=== PATIENT | female | born 1960 | race Caucasian/White ===

== ENCOUNTER 2016-08-23 00:15 | Observation (INO) | payer OTHER ==
--- NOTE | 2016-08-23 01:19 | ED ---
General Adult HPI - General Chief complaint: Abdominal Pain Stated complaint: high BP Time Seen by Provider: 08/23/16 00:42 Source: patient, RN notes reviewed Mode of arrival: ambulatory Limitations: no limitations - History of Present Illness Initial comments: Patient is a 56-year-old female presents to the emergency room for evaluation of high blood pressure. Patient states that she randomly checked her blood pressure on Wednesday noticed that was it was high. Patient denies any history of high blood pressure. Patient denies being on any blood pressure medications. Patient states today she began feeling "not herself". Patient states she is having chest discomfort. Patient states she feels like there is pressure over her chest. Patient denies shortness of breath. Patient states she smokes about 6 cigarettes per day. Patient also states that she is having a cough. Patient also states she does have a slight headache with ringing in her ears. Patient denies paresthesia. Patient denies changes in vision. Patient also states she has a history of diabetes which she takes metformin for. Patient denies any other significant past medical history. - Related Data Home Medications Medication Instructions Recorded Confirmed Belladonna Eye Drops 1 - 2 drops BOTH EYES DAILY 12/12/14 01/25/16 Propylene Glycol/Peg 400/Pf 1 - 2 drops BOTH EYES BID PRN 12/12/14 01/25/16 [Systane 0.3-0.4% Eye Drops] Ranitidine HCl [Zantac] 150 mg PO DAILY 01/16/16 01/25/16 Lidocaine 5% Patch [Lidoderm 5% 1 patch TOPICAL DAILY PRN 01/25/16 01/25/16 Patch] Allergies Allergy/AdvReac Type Severity Reaction Status Date / Time Penicillins AdvReac Nausea & Verified 08/23/16 00:28 Vomiting & Diarrhea Review of Systems ROS Statement: Those systems with pertinent positive or pertinent negative responses have been documented in the HPI. ROS Other: All systems not noted in ROS Statement are negative. Past Medical History Past Medical History: Asthma, Diabetes Mellitus, Fibromyalgia, GERD/Reflux, Osteoarthritis (OA), Pneumonia Additional Past Medical History / Comment(s): degenerative disk problems, numbness rt/lft hand 3rd through 5th digits, 2009 renal failure-resolved, hx migraines History of Any Multi-Drug Resistant Organisms: None Reported Past Surgical History: Appendectomy, Section, Hysterectomy, Orthopedic Surgery Additional Past Surgical History / Comment(s): disc surgery-plate and screws in neck, x2 (appentdectomy happened during one of the ), ORIF rt ankle,lt eye repaired and placed back into socket, lipoma removed lt thigh Past Anesthesia/Blood Transfusion Reactions: No Reported Reaction Additional Past Anesthesia/Blood Transfusion Reaction / Comment(s): no complications with prior blood transfusion Past Psychological History: Anxiety Smoking Status: Current every day smoker Past Alcohol Use History: Occasional Past Drug Use History: Marijuana - Past Family History Father Family Medical History: Cancer Additional Family Medical History / Comment(s): . Mother Family Medical History: Hypertension, Osteoarthritis (OA) Additional Family Medical History / Comment(s): MS General Exam - General Exam Comments Initial Comments: Sitting in exam room, no acute distress. Limitations: no limitations General appearance: alert, in no apparent distress Head exam: Present: atraumatic, normocephalic, normal inspection Eye exam: Present: normal appearance ENT exam: Present: normal exam Neck exam: Present: normal inspection Respiratory exam: Present: normal lung sounds bilaterally. Absent: respiratory distress Cardiovascular Exam: Present: regular rate, normal rhythm, normal heart sounds GI/Abdominal exam: Present: soft, normal bowel sounds. Absent: distended, tenderness, guarding, rebound, rigid Extremities exam: Present: normal inspection Back exam: Present: normal inspection Neurological exam: Present: alert, oriented X3, CN II-XII intact, normal gait Psychiatric exam: Present: normal affect, normal mood Skin exam: Present: warm, dry, intact, normal color. Absent: rash Course Vital Signs 08/23/16 08/23/16 08/23/16 00:20 01:30 02:19 Temperature 97.9 F Pulse Rate 98 80 84 Respiratory 20 18 18 Rate Blood Pressure 186/97 164/87 140/88 O2 Sat by Pulse 99 96 97 Oximetry EKG Findings - EKG Comments: EKG Findings:: Normal sinus rhythm, ventricular rate 84 bpm, MO interval 150 ms , QRS duration 86 ms, QT/QTC 364/430 ms Medical Decision Making - Medical Decision Making Patient is a 56-year-old female presents to the emergency room for evaluation of high blood pressure and chest discomfort. Patient's blood pressure went down to 140/88 with no medications given. Patient states her headache has improved but she is still feeling a pressure-like sensation in her chest. Cardiac enzymes within normal limits. Due to patient comorbidities and her symptoms, will keep patient under observation for repeat cardiac enzymes. - Lab Data Result diagrams: 08/23/16 01:20 08/23/16 01:20 Lab Results 08/23/16 08/23/16 08/23/16 Range/Units 01:20 01:20 01:20 WBC 8.3 (3.8-10.6) k/uL RBC 4.07 (3.80-5.40) m/uL Hgb 13.4 (11.4-16.0) gm/dL Hct 38.9 (34.0-46.0) % MCV 95.8 (80.0-100.0) fL MCH 32.8 (25.0-35.0) pg MCHC 34.3 (31.0-37.0) g/dL RDW 13.0 (11.5-15.5) % Plt Count 216 (150-450) k/uL Neutrophils % 73 % Lymphocytes % 18 % Monocytes % 5 % Eosinophils % 2 % Basophils % 1 % Neutrophils # 6.1 (1.3-7.7) k/uL Lymphocytes # 1.5 (1.0-4.8) k/uL Monocytes # 0.4 (0-1.0) k/uL Eosinophils # 0.2 (0-0.7) k/uL Basophils # 0.0 (0-0.2) k/uL PT (9.0-12.0) sec INR (<1.1) APTT (22.0-30.0) sec Sodium 138 (137-145) mmol/L Potassium 4.5 (3.5-5.1) mmol/L Chloride 104 (98-107) mmol/L Carbon Dioxide 23 (22-30) mmol/L Anion Gap 11 mmol/L BUN 7 (7-17) mg/dL Creatinine 0.40 L (0.52-1.04) mg/dL Est GFR (MDRD) Af Amer >60 (>60 ml/min/1.73 sqM) Est GFR (MDRD) Non-Af >60 (>60 ml/min/1.73 sqM) Glucose 110 H (74-99) mg/dL Calcium 10.2 (8.4-10.2) mg/dL Magnesium 1.8 (1.6-2.3) mg/dL Total Bilirubin 0.6 (0.2-1.3) mg/dL AST 40 H (14-36) U/L ALT 39 (9-52) U/L Alkaline Phosphatase 112 (38-126) U/L Total Creatine Kinase 97 (30-135) U/L CK-MB (CK-2) 1.4 (0.0-2.4) ng/mL CK-MB (CK-2) Rel Index 1.4 Troponin I <0.012 (0.000-0.034) ng/mL Total Protein 7.5 (6.3-8.2) g/dL Albumin 4.6 (3.5-5.0) g/dL 08/23/16 Range/Units 01:20 WBC (3.8-10.6) k/uL RBC (3.80-5.40) m/uL Hgb (11.4-16.0) gm/dL Hct (34.0-46.0) % MCV (80.0-100.0) fL MCH (25.0-35.0) pg MCHC (31.0-37.0) g/dL RDW (11.5-15.5) % Plt Count (150-450) k/uL Neutrophils % % Lymphocytes % % Monocytes % % Eosinophils % % Basophils % % Neutrophils # (1.3-7.7) k/uL Lymphocytes # (1.0-4.8) k/uL Monocytes # (0-1.0) k/uL Eosinophils # (0-0.7) k/uL Basophils # (0-0.2) k/uL PT 9.9 (9.0-12.0) sec INR 1.0 (<1.1) APTT 24.6 (22.0-30.0) sec Sodium (137-145) mmol/L Potassium (3.5-5.1) mmol/L Chloride (98-107) mmol/L Carbon Dioxide (22-30) mmol/L Anion Gap mmol/L BUN (7-17) mg/dL Creatinine (0.52-1.04) mg/dL Est GFR (MDRD) Af Amer (>60 ml/min/1.73 sqM) Est GFR (MDRD) Non-Af (>60 ml/min/1.73 sqM) Glucose (74-99) mg/dL Calcium (8.4-10.2) mg/dL Magnesium (1.6-2.3) mg/dL Total Bilirubin (0.2-1.3) mg/dL AST (14-36) U/L ALT (9-52) U/L Alkaline Phosphatase (38-126) U/L Total Creatine Kinase (30-135) U/L CK-MB (CK-2) (0.0-2.4) ng/mL CK-MB (CK-2) Rel Index Troponin I (0.000-0.034) ng/mL Total Protein (6.3-8.2) g/dL Albumin (3.5-5.0) g/dL - Radiology Data Radiology results: report reviewed, image reviewed Disposition Clinical Impression: Atypical chest pain Disposition: ADMITTED IP TO THIS [facility] Condition: Stable Decision Date: 08/23/16
[2016-08-23 01:38] LABS: Basophils % (A) 1 %; CH 32.9; CHCM 34.5; Eosinophils # (A) 0.2 k/uL (0-0.7); Eosinophils % (A) 2 %; HCT 38.9 % (34.0-46.0); HDW 2.25; HGB 13.4 gm/dL (11.4-16.0); Luc # (Auto) 0.13; Luc % (Auto) 2; Lymphocytes # (A) 1.5 k/uL (1.0-4.8); Lymphocytes % (A) 18 %; MCH 32.8 pg (25.0-35.0); MCHC 34.3 g/dL (31.0-37.0); MCV 95.8 fL (80.0-100.0); Monocytes # (A) 0.4 k/uL (0-1.0); Monocytes % (A) 5 %; Neutrophils # (A) 6.1 k/uL (1.3-7.7); Neutrophils % (A) 73 %; RBC 4.07 m/uL (3.80-5.40); WBC 8.3 k/uL (3.8-10.6); WBC (Perox) 8.42
[2016-08-23 01:48] LABS: ALT 39 U/L (9-52); AST 40 U/L (14-36); Alkaline Phosphatase 112 U/L (38-126); Anion Gap 11 mmol/L; Blood Urea Nitrogen 7 mg/dL (7-17); Calcium 10.2 mg/dL (8.4-10.2); Carbon Dioxide 23 mmol/L (22-30); Chloride 104 mmol/L (98-107); Glucose 110 mg/dL (74-99); Magnesium 1.8 mg/dL (1.6-2.3); Non-African American GFR(MDRD) >60 (>60 ml/min/1.73 sqM); Potassium 4.5 mmol/L (3.5-5.1); Sodium 138 mmol/L (137-145); Total Bilirubin 0.6 mg/dL (0.2-1.3); Total Protein 7.5 g/dL (6.3-8.2)
[2016-08-23 01:49] LABS: Partial Thromboplastin Time 24.6 sec (22.0-30.0); Prothrombin Time 9.9 sec (9.0-12.0)
--- NOTE | 2016-08-23 01:55 | XR ---
EXAM: Chest PA and lateral views INDICATION: 56-year-old female with chest pain. COMPARISON: 01/28/2016. FINDINGS: PA and lateral views of the chest are obtained. The cardiomediastinal silhouette is within normal limits. Lungs are clear. No focal consolidation, pneumothorax, or pleural effusions. Stable postoperative changes of the cervical spine and thoracic spondylosis. IMPRESSION: No acute cardiopulmonary disease.
[2016-08-23 01:57] LABS: Creatine Kinase 97 U/L (30-135)
[2016-08-23 02:10] LABS: Creatine Kinase MB 1.4 ng/mL (0.0-2.4); Troponin I <0.012 ng/mL (0.000-0.034)
[2016-08-23 02:20] VITALS: RESP 18
[2016-08-23] MEDS ORDERED: HYDROmorphone 1 MG/ML 1 ML SYRINGE IV PRN (02:49)
[2016-08-23] MEDS ORDERED: ONDANSETRON 4 MG/2 ML VIAL IVP PRN (02:49)
[2016-08-23] MEDS ORDERED: NALOXONE 0.4 MG/ML 1 ML VIAL IV PRN (02:49)
[2016-08-23] MEDS ORDERED: ACETAMINOPHEN TAB 325 MG TAB PO PRN (02:49)
[2016-08-23] MEDS: SODIUM CHLORIDE 0.9% 1,000 ML IV SCH (03:06)
[2016-08-23] MEDS ORDERED: ASPIRIN 81 MG CHEW PO STA (03:58)
[2016-08-23 06:14] LABS: Glucose,Whole Blood 110 mg/dL (75-99)
[2016-08-23 07:02] LABS: Creatine Kinase 81 U/L (30-135)
[2016-08-23 07:14] LABS: Creatine Kinase MB 1.2 ng/mL (0.0-2.4); Troponin I <0.012 ng/mL (0.000-0.034)
[2016-08-23 08:35] LABS: Cholesterol 199 mg/dL (<200); HDL Cholesterol 70 mg/dL (40-60); Triglycerides 68 mg/dL (<150)
[2016-08-23] MEDS: LISINOPRIL 5 MG TAB PO SCH (10:08)
[2016-08-23] MEDS: ATORVASTATIN 20 MG TAB PO SCH (10:09)
[2016-08-23] MEDS: ASPIRIN 81 MG CHEW PO SCH (10:09)
--- NOTE | 2016-08-23 10:12 | P.HPIM ---
History of Present Illness H&P Date: 08/23/16 Chief Complaint: Chest pain 56-year-old female presented on the day of admission to the emergency room to be evaluated for epigastric chest discomfort with a high blood pressure. Patient states that she randomly checks her blood pressure at home and noted that on Wednesday this week it was high. Patient stated it was in the 170s to 180s. Patient states she does not take any blood pressure medication when questioning. Additionally the patient states that she is diabetic and takes an oral agent and thought that her blood sugars were high which the patient did not check . When questioning patient about the chest discomfort patient stated when she got to the emergency room she noted that she just did not feel like herself and was experiencing some midsternal chest discomfort. Patient denied any nausea vomiting denied shortness of breath denies any diaphoresis. Patient gives no other significant past medical history. 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 Patient denies any prior episodes. In the emergency room the blood pressure was noted to be elevated at 186/97 heart rate in the 90s afebrile. Subsequently the patient was admitted to the services of the attending with chest protocol initiated. Cardiac enzymes 2 sets of been negative. Cardiology consultation has been requested. Patient currently states epigastric chest discomfort has resolved patient states that she does smoke cigarettes she rolls her own the amount she smokes varies Patient gives no significant family history of coronary artery disease Review of Systems Since an unremarkable except as mentioned in the present illness Past Medical History Past Medical History: Asthma, Diabetes Mellitus, Fibromyalgia, GERD/Reflux, Osteoarthritis (OA), Pneumonia Additional Past Medical History / Comment(s): degenerative disk problems, numbness rt/lft hand 3rd through 5th digits, 2009 renal failure-resolved, hx migraines. patient takes metformin for diabetes only when sugar is high. History of Any Multi-Drug Resistant Organisms: None Reported Past Surgical History: Appendectomy, Section, Hysterectomy, Orthopedic Surgery Additional Past Surgical History / Comment(s): disc surgery-plate and screws in neck, x2 (appentdectomy happened during one of the ), ORIF rt ankle,lt eye repaired and placed back into socket, lipoma removed lt thigh Past Anesthesia/Blood Transfusion Reactions: No Reported Reaction Additional Past Anesthesia/Blood Transfusion Reaction / Comment(s): no complications with prior blood transfusion Past Psychological History: Anxiety Smoking Status: Current every day smoker Past Alcohol Use History: Occasional Additional Past Alcohol Use History / Comment(s): Patient says she drinks daily normally but hasn't had any alcohol in a while due to not feeling well. Past Drug Use History: Marijuana Additional Drug Use History / Comment(s): Smokes marijuana and cigarettes daily. - Past Family History Father Family Medical History: Cancer Additional Family Medical History / Comment(s): . Mother Family Medical History: Hypertension, Osteoarthritis (OA) Additional Family Medical History / Comment(s): MS Medications and Allergies Home Medications Medication Instructions Recorded Confirmed Type Propylene Glycol/Peg 400/Pf 1 - 2 drops BOTH EYES BID PRN 12/12/14 08/23/16 History [Systane 0.3-0.4% Eye Drops] Ranitidine HCl [Zantac] 150 mg PO DAILY PRN 01/16/16 08/23/16 History Aspirin 325 mg PO DAILY PRN 08/23/16 08/23/16 History metFORMIN HCL [Metformin HCl] 500 mg PO DAILY PRN 08/23/16 08/23/16 History Allergies Allergy/AdvReac Type Severity Reaction Status Date / Time Penicillins AdvReac Nausea & Verified 08/23/16 07:47 Vomiting & Diarrhea Physical Exam Vitals: Vital Signs Temp Pulse Pulse Resp BP BP Pulse Ox 08/23/16 08:00 97.0 F L 96 18 138/70 99 08/23/16 04:20 98.1 F 75 18 132/85 95 08/23/16 03:54 97.6 F 78 18 139/90 99 08/23/16 02:19 84 18 140/88 97 08/23/16 01:30 80 18 164/87 96 08/23/16 00:20 97.9 F 98 20 186/97 99 Intake and Output 08/22/16 08/23/16 08/23/16 22:59 06:59 14:59 Output Total 300 Balance -300 Output: Urine 300 Other: Voiding Method Toilet Toilet Weight 53.8 kg GENERAL APPEARANCE: 56-year-old female patient is alert, oriented, in no acute distress. Sitting up in bed VITAL SIGNS: Noted reviewed HEENT: Head is normocephalic and atraumatic. Pupils are equal and reactive. The nares are patent. Oropharynx is clear without lesions. NECK: Supple without lymphadenopathy. Traches midline. HEART: S1, S2. Regular rate and rhythm. Monitor sinus rhythm no murmur noted denying chest pain LUNGS: No crackles or wheezes are heard. On room air no cough noted ABDOMEN: Soft, nontender, nondistended with good bowel sounds. No peritoneal signs. No palpable organomegaly or masses. EXTREMITIES: Normal skin color and turgor. No cyanosis, rash, ulceration, clubbing or edema. Radial pedal pulses are 2/4 bilaterally. NEUROLOGICAL: No focal deficits. Strength and sensation are grossly intact. Results CBC & Chem 7: 08/23/16 01:20 08/23/16 01:20 Labs: Abnormal Lab Results - Last 24 Hours (Table) 08/23/16 08/23/16 08/23/16 Range/Units 01:20 01:20 06:12 Creatinine 0.40 L (0.52-1.04) mg/dL Glucose 110 H (74-99) mg/dL POC Glucose (mg/dL) 110 H (75-99) mg/dL AST 40 H (14-36) U/L LDL Cholesterol, Calc 115 H (0-99) mg/dL HDL Cholesterol 70 H (40-60) mg/dL Thrombosis Risk Factor Assmnt - Choose All That Apply Any of the Below Risk Factors Present?: Yes Each Factor Represents 1 point: Age 41-60 years Other Risk Factors: No Thrombosis Risk Factor Assessment Total Risk Factor Score: 1 Thrombosis Risk Factor Assessment Level: Low Risk Assessment and Plan Plan: Impression Present on admission atypical chest pain Current every day smoker Anxiety disorder nonspecified Type 2 diabetes non-insulin Present on admission hypertension urgency Hyperlipidemia Plan Continue current recommendations by cardiology service scheduled for a stress test in the morning on august 21 Patient's been advised to stop smoking cigarettes Monitor blood pressure heart rate address as indicated Continue lisinopril 5 mg daily Continue IV fluid at 75 an hour as ordered DVT and GI prophylaxis Further recommendations pending The above dictated assessment and findings were discussed with dr barnes . Impression and the plan of care have been dictated as directed. Eva Esqueda nurse practitioner acting as a scribe for dr barnes
[2016-08-23] MEDS ORDERED: traMADol 50 MG TAB PO PRN (10:13)
[2016-08-23 11:51] LABS: Glucose,Whole Blood 104 mg/dL (75-99)
[2016-08-23 12:33] LABS: Creatine Kinase 67 U/L (30-135)
[2016-08-23] MEDS: INSULIN LISPRO (humaLOG) 300 UNIT/3 ML VIAL SQ SCH ×3 (12:34→21:05)
[2016-08-23 12:44] LABS: Creatine Kinase MB 1.2 ng/mL (0.0-2.4); Troponin I <0.012 ng/mL (0.000-0.034)
[2016-08-23] MEDS: NICOTINE 21MG/24HR PATCH TRANSDERM SCH (14:33)
[2016-08-23] MEDS ORDERED: IBUPROFEN 600 MG TAB PO PRN (14:51)
[2016-08-23 15:22] LABS: Hemoglobin A1C 5.5 % (4.2-6.1)
--- NOTE | 2016-08-23 15:55 | CONS ---
DATE OF CONSULTATION: Mrs. Graf is a 56-year-old female with a history of diabetes mellitus, chronic tobacco use, who starting Wednesday has started not feeling well. She checked her blood sugar but her blood pressure was under reasonable control. She checked her blood sugar and it was elevated. She has not been diagnosed with hypertension in the past. Her blood pressure remained elevated throughout the last few days. Yesterday started to complain of chest discomfort across the chest. The discomfort was not exertional in pattern. She had mild dizziness. She is reasonably active physically, has no exertional chest pain. Her breathing stable on a regular basis. She has some dizziness recently, but no palpitation. No syncope. She has no PND. No orthopnea. She has occasional peripheral edema related to prior ankle injury. Her coronary risk factors are remarkable for history of chronic tobacco use and history of diabetes. She has no prior documented history of hypertension. She is unaware of her lipid profile. Her medications include: 1. Metformin, which apparently she does not take regularly. 2. Ranitidine. 3. Aspirin. REVIEW OF SYSTEMS: RESPIRATORY SYSTEM: She has prior history of bronchial asthma. No recent wheezing, cough. GI system: She had prior history of abdominal pain, was admitted to the hospital in January of last year and at that time had hematemesis and black stool and possible GI bleeding. system: No history of dysuria or hematuria. Nervous system: No stroke or seizure. SOCIAL HISTORY: She smokes as noted. Drinks caffeine and drinks alcohol at times on a daily basis 4 to 6 beers. PHYSICAL EXAMINATION: A 56-year-old female, alert, oriented, in no apparent distress. Blood pressure running in the 180s to 130s range with a heart in the 70s. HEAD: Normocephalic. EYES: Sclerae anicteric. NECK: Good upstroke. No bruit. No jugular venous distention. LUNGS: Clear to auscultation. HEART: Regular rate rhythm. S1, S2, no S3, no S4, no murmur or rub. ABDOMEN: Soft, nontender, positive bowel sounds. No organomegaly. EXTREMITIES: No edema. Intact distal pulses. Lab data revealed troponin of less than 0.012 for 2 samples. BUN and creatinine are 7 and 0.4. Potassium 4.5. Hemoglobin is 13.4. Her EKG revealed sinus mechanism with a normal axis and intervals. No acute changes. IMPRESSION: 1. Chest discomfort of unclear etiology has atypical feature for ischemic heart disease. No evidence of acute coronary syndrome. 2. History of diabetes. 3. History of smoking. 4. Prior history of gastrointestinal bleeding, stable. 5. History of alcohol intake. RECOMMENDATION: I will add to her regimen Lisinopril in view of her history of diabetes. I will also add the statin. I will obtain echocardiogram and stress echocardiogram. If there is no evidence of inducible ischemia, then no further cardiac work-up will be needed. The importance of smoking cessation was discussed with the patient. Thank you for this consult. We will follow with you.
[2016-08-23 16:48] LABS: Glucose,Whole Blood 95 mg/dL (75-99)
[2016-08-23] MEDS ORDERED: FAMOTIDINE 20 MG TAB PO STA (20:25)
[2016-08-23] MEDS ORDERED: LISINOPRIL 5 MG TAB PO STA (20:25)
[2016-08-23 20:46] LABS: Glucose,Whole Blood 121 mg/dL (75-99)
[2016-08-24] MEDS: SODIUM CHLORIDE 0.9% 1,000 ML IV SCH ×2 (04:20→07:27)
[2016-08-24 05:57] LABS: Glucose,Whole Blood 107 mg/dL (75-99)
[2016-08-24] MEDS: INSULIN LISPRO (humaLOG) 300 UNIT/3 ML VIAL SQ SCH ×2 (06:48→11:50)
[2016-08-24] MEDS: ATORVASTATIN 20 MG TAB PO SCH (07:43)
[2016-08-24] MEDS: LISINOPRIL 5 MG TAB PO SCH (07:43)
[2016-08-24] MEDS: NICOTINE 21MG/24HR PATCH TRANSDERM SCH (07:44)
[2016-08-24] MEDS: ASPIRIN 81 MG CHEW PO SCH (07:44)
[2016-08-24 07:52] VITALS: PULSE 92
[2016-08-24] MEDS ORDERED: FAMOTIDINE 20 MG TAB PO SCH (09:00)
--- NOTE | 2016-08-24 10:53 | ECHOF ---
Referral Reason:cp MEASUREMENTS -------- HEIGHT: 167.6 cm WEIGHT: 53.5 kg BP: 134/78 RVIDd: 2.7 cm (< 3.3) IVSd: 1.1 cm (0.6 - 1.1) LVIDd: 4.0 cm (3.9 - 5.3) LVPWd: 1.2 cm (0.6 - 1.1) IVSs: 1.3 cm LVIDs: 2.7 cm LVPWs: 1.4 cm LA Diam: 3.1 cm (2.7 - 3.8) LAESV Index (A-L): 18.73 ml/m Ao Diam: 2.9 cm (2.0 - 3.7) AV Cusp: 1.8 cm (1.5 - 2.6) MV EXCURSION: 16.356 mm (> 18.000) MV EF SLOPE: 101 mm/s (70 - 150) EPSS: 0.4 cm MV E Tylor: 0.90 m/s MV DecT: 246 ms MV A Tylor: 1.00 m/s MV E/A Ratio: 0.90 RAP: 5.00 mmHg RVSP: 34.03 mmHg FINDINGS -------- Sinus rhythm. This was a technically good study. The left ventricular size is normal. There is borderline concentric left ventricular hypertrophy. Overall left ventricular systolic function is normal with, an EF between 60 - 65 %. The right ventricle is normal in size. Normal LA size by volume 22+/-6 ml/m2. The right atrium is normal in size. The aortic valve is trileaflet and appears structurally normal. The mitral valve leaflets are mildly thickened. There is trace mitral regurgitation. Mild tricuspid regurgitation present. Right ventricular systolic pressure is normal at < 35 mmHg. There is no pulmonic regurgitation present. The aortic root size is normal. Normal inferior vena cava with normal inspiratory collapse consistent with estimated right atrial pressure of 5 mmHg. The pericardium is normal. CONCLUSIONS -------- 1. Sinus rhythm. 2. There is trace mitral regurgitation. 3. Mild tricuspid regurgitation present. 4. Right ventricular systolic pressure is normal at < 35 mmHg. 5. There is no pulmonic regurgitation present. 6. The aortic root size is normal. 7. Normal inferior vena cava with normal inspiratory collapse consistent with estimated right atrial pressure of 5 mmHg. 8. The pericardium is normal. 9. This was a technically good study. 10. The left ventricular size is normal. 11. There is borderline concentric left ventricular hypertrophy. 12. Overall left ventricular systolic function is normal with, an EF between 60 - 65 %. 13. The right ventricle is normal in size. 14. Normal LA size by volume 22+/-6 ml/m2. 15. The aortic valve is trileaflet and appears structurally normal. 16. The mitral valve leaflets are mildly thickened. BUSINESS EXCELLENCE MANAGER: Cori Heath RDCS
[2016-08-24 11:33] LABS: Glucose,Whole Blood 144 mg/dL (75-99)
--- NOTE | 2016-08-24 11:44 | P.PN ---
Subjective Principal diagnosis: Chest pain This is a 56-year-old female with history of diabetes, nicotine dependence, who presented to the hospital with symptoms of chest discomfort and associated mild dizziness. She was seen in consultation by Dr. Ervin, recommended today to undergo a stress echocardiographic study as well as some regular echo. Echocardiogram with Doppler study revealed normal left ventricular systolic function. Overall patient feels well, denies any chest pain or difficulty in breathing. She has been up without any difficulty. Objective - Vital Signs Vital signs: Vital Signs Temp 97.6 F 08/24/16 07:44 Pulse 92 08/24/16 07:44 Resp 18 08/24/16 07:44 BP 156/75 08/24/16 07:44 Pulse Ox 98 08/24/16 07:44 Intake & Output 08/23/16 08/24/16 08/24/16 18:59 06:59 18:59 Intake Total 780 900 Balance 780 900 Weight 54.2 kg Intake: Intake, IV Titration 600 900 Amount Sodium Chloride 0.9% 1, 600 900 000 ml @ 75 mls/hr IV . [id number] WILLEM Rx#:[id number] Oral 180 Other: Voiding Method Toilet Toilet Toilet # Voids 1 1 - Exam PHYSICAL EXAMINATION: HEENT: Head is atraumatic, normocephalic. Pupils equal, round. Neck is supple. There is no elevated jugular venous pressure. HEART EXAMINATION: Heart S1, S2 normal. No murmur or gallop heard. CHEST EXAMINATION: Lungs are clear to auscultation and precussion. No chest wall tenderness is noted on palpation or with deep breathing. ABDOMEN: Soft, nontender. Bowel sounds are heard. No organomegaly noted. EXTREMITIES: 2+ peripheral pulses with no evidence of peripheral edema and no calf tenderness noted. NEUROLOGIC patient is awake, alert and oriented -3. . - Labs CBC & Chem 7: 08/23/16 01:20 08/23/16 01:20 Labs: Abnormal Lab Results - Last 24 Hours (Table) 08/23/16 08/23/16 08/24/16 Range/Units 11:30 20:45 05:55 POC Glucose (mg/dL) 104 H 121 H 107 H (75-99) mg/dL 08/24/16 Range/Units 11:31 POC Glucose (mg/dL) 144 H (75-99) mg/dL Assessment and Plan Plan: Assessment and plan #1 atypical chest discomfort, patient is scheduled to undergo stress echocardiographic study today. Echo revealed normal left ventricular systolic function. #2 diabetes #3 nicotine dependence #4 history of EtOH use #5 prior history of GI bleeding, stable Plan We will review the stress echocardiographic study of today, if negative the patient may be able to be discharged home from cardiology's perspective. DNP note has been reviewed, I agree with a documented findings and plan of care. Patient was seen and examined.
[2016-08-24 12:29] VITALS: BP 156/83; TEMP 97.5
--- NOTE | 2016-08-24 12:30 | ECHOS ---
DATE OF SERVICE: 08/24/2016 AGE: 56Y SEX: F HT: 66 WT: 118 lbs. Protocol Moreno: X Others: Stress Echo Stage: II Dur. of Exercise: 5 minutes *Heart Rate Blood Pressure *Rest: 95 Rest: 133/70 * *Max. Achieved: 150 Maximum BP: 155/79 85% PMHR: 139 100% PMHR: 163 *METS: 6.4 INDICATIONS: Chest pain. MEDICATIONS: Patient was exercised for a total period of 5 minutes. The peak heart rate of 150 was achieved. Maximum blood pressure of 155/79 mmHg was noted. The patient did not complain of any chest pain during the test. Resting EKG shows normal sinus rhythm with normal NV interval and QRS duration and normal ST-T waves. No ST segment depression suggestive of ischemia is noted. The baseline echocardiographic images reveal a normal left ventricular chamber size with a normal left ventricular systolic function. In the immediate postexercise period, normal increase in the wall thickness and contractility is noted. FINAL IMPRESSION: This stress echocardiographic study is negative for stress-induced ischemia. EKG portion of the stress test is not suggestive of ischemia. Patient's exercise tolerance is average.
--- NOTE | 2016-08-24 12:52 | P.DS ---
Providers Date of admission: 08/23/16 02:55 Expected date of discharge: 08/24/16 Attending physician: Maria A Garnica Consults: 08/23/16 02:51 Consult Physician Urgent Consulting Provider: [facility] Consult Reason/Comments: atypical chest pain Do you want consulting provider notified?: Yes Primary care physician: Anita Wesley [facility] Course: This is a 56-year-old female with past medical history significant for underlying diabetes who presented to the hospital with chest pain and was evaluated in the emergency room. Twelve-lead EKG showed no acute ischemic changes. Initial troponin was negative. Patient was evaluated by cardiology and underwent stress echocardiogram that was negative. Patient was noted to have uncontrolled blood pressure and lisinopril was added to her regimen. Her LDL cholesterol was not at goal so Lipitor 10 mg added to her regimen. She will be discharged home in a stable condition she will follow-up with her primary care physician as directed. Please refer to the electronic chart for further details about this hospitalization. Patient Condition at Discharge: Stable Plan - Discharge Summary New Discharge Prescriptions: New Atorvastatin Calcium [Lipitor] 10 mg PO DAILY #30 tab Lisinopril [Zestril] 5 mg PO DAILY #30 tab Continue Propylene Glycol/Peg 400/Pf [Systane 0.3-0.4% Eye Drops] 1 - 2 drops BOTH EYES BID PRN PRN Reason: Dry Eye(S) Ranitidine HCl [Zantac] 150 mg PO DAILY PRN PRN Reason: Heartburn metFORMIN HCL [Metformin HCl] 500 mg PO DAILY PRN PRN Reason: Blood Sugar - High Discontinued Aspirin 325 mg PO DAILY PRN PRN Reason: Pain Discharge Medication List Propylene Glycol/Peg 400/Pf [Systane 0.3-0.4% Eye Drops] 1 - 2 drops BOTH EYES BID PRN 12/12/14 [History] Ranitidine HCl [Zantac] 150 mg PO DAILY PRN 01/16/16 [History] metFORMIN HCL [Metformin HCl] 500 mg PO DAILY PRN 08/23/16 [History] Atorvastatin Calcium [Lipitor] 10 mg PO DAILY #30 tab 08/24/16 [Rx] Lisinopril [Zestril] 5 mg PO DAILY #30 tab 08/24/16 [Rx] Follow up Appointment(s)/Referral(s): Anita Wesley MD [Primary Care Provider] - 3 Days Discharge Disposition: HOME SELF-CARE
[2016-08-24 13:54] VITALS: BMI 19.3
== END 2016-08-24 14:22 | disposition home or self-care (01) ==
LOC: EC 00:15 → 6SEL 02:55
PROVIDERS: ADMIT Internal Medicine; ATTEND Internal Medicine
DX: R07.89 Other chest pain (principal); E11.9 Type 2 diabetes mellitus without complications; F17.210 Nicotine dependence, cigarettes, uncomplicated; M79.7 Fibromyalgia; K21.9 Gastro-esophageal reflux disease without esophagitis; J45.909 Unspecified asthma, uncomplicated; M19.90 Unspecified osteoarthritis, unspecified site; G43.909 Migraine, unspecified, not intractable, without status migrainosus; R42 Dizziness and giddiness; I16.0 Hypertensive urgency; E78.5 Hyperlipidemia, unspecified; I10 Essential (primary) hypertension; F41.9 Anxiety disorder, unspecified; Z82.49 Family history of ischemic heart disease and other diseases of the circulatory system; Z79.82 Long term (current) use of aspirin; Z79.84 Long term (current) use of oral hypoglycemic drugs; Z79.899 Other long term (current) drug therapy; Z88.0 Allergy status to penicillin
CPT/HCPCS: 96361 ×3; 96374; 96375; 99285; 36415; 93005; 93017; 93306; 93350; 80061; 80053; 83036; 82550; 82553; 83735; 84484; 85025; 85610; 85730; 71020; G0378 ×2; S4990 ×2; J2405; J1170

== ENCOUNTER 2017-02-22 21:59 | Emergency (ER) | payer OTHER ==
[2017-02-22 22:06] VITALS: BP 172/83; PULSE 122; RESP 20; TEMP 96.7
[2017-02-22] MEDS ORDERED: RABIES IMMUNE GLOB 150 UNIT/ML 10 ML VIAL IM ONE (22:15)
[2017-02-22] MEDS ORDERED: DIPH,PERTUS(ACELL)TETVAC-LF 0.5 ML VIAL IM ONE (22:15)
[2017-02-22] MEDS ORDERED: RABIES VACC,HUMAN DIPLOID (PF) 2.5 UNIT KIT IM ONE (22:15)
[2017-02-22] MEDS ORDERED: CLINDAMYCIN 150 MG CAP PO STA (22:24)
[2017-02-22] MEDS ORDERED: SULFAMETH-TMP DS STARTER PACK 2 TAB BTL PO STA (22:24)
[2017-02-22] MEDS ORDERED: HYDROcodone/APAP 5-325MG 1 EACH TAB PO STA (22:56)
--- NOTE | 2017-02-22 23:08 | XR ---
History: Reason: Pain Exam: XR LEFT ELBOW 3 views Comparison: None available FINDINGS: No radiopaque foreign body. Multifocal areas of soft tissue swelling appears greatest along the lateral side of the elbow with multifocal areas of associated soft tissue appearing gas. Appearance on the lateral view of tiny irregularity at the radial tuberosity which may be due to enthesopathic change versus very small area of osseous injury. No dislocation or joint effusion. IMPRESSION: No radiopaque foreign body. Multifocal areas of soft tissue swelling appears greatest along the lateral side of the elbow with multifocal areas of associated soft tissue appearing gas. Appearance on the lateral view of tiny irregularity at the radial tuberosity which may be due to enthesopathic change versus very small area of osseous injury. No dislocation or joint effusion.
--- NOTE | 2017-02-22 23:12 | ED ---
General Adult HPI - General Chief complaint: Animal Bite Stated complaint: dog bite Time Seen by Provider: 02/22/17 22:14 Source: patient, RN notes reviewed Mode of arrival: ambulatory Limitations: no limitations - History of Present Illness Initial comments: Patient is a 56-year-old female who presents emergency room today with chief complaint of dog bite to the left elbow. She does admit that she let her dogs out. She states she heard some noise back by her chicken coop and she went out to investigate. She states it was a stray dog that was back dentures try to shoot away. She states her dog bite her to the left elbow area. She states she does have some puncture wounds in this area. She states she was unable to kick the dog ran away. She states she was unable to capture the dog. States that she is unsure about her tetanus status. She doesn't pain locally to the left elbow area. She denies any other complaints or injuries. Patient denies any recent fever, chills, shortness of breath, chest pain, back pain, abdominal pain, nausea or vomiting, or any other complaints. - Related Data Home Medications Medication Instructions Recorded Confirmed Propylene Glycol/Peg 400/Pf 1 - 2 drops BOTH EYES BID PRN 12/12/14 02/22/17 [Systane 0.3-0.4% Eye Drops] Ranitidine HCl [Zantac] 150 mg PO DAILY PRN 01/16/16 02/22/17 metFORMIN HCL [Metformin HCl] 500 mg PO DAILY PRN 08/23/16 02/22/17 Previous Rx's Medication Instructions Recorded Atorvastatin Calcium [Lipitor] 10 mg PO DAILY #30 tab 08/24/16 Lisinopril [Zestril] 5 mg PO DAILY #30 tab 08/24/16 Clindamycin HCl [Cleocin] 300 mg PO Q6HR 10 Days cap 02/22/17 Hydrocodone/Acetaminophen [[place] 1 each PO Q6HR PRN #12 tab 02/22/17 5-325] Sulfamethox-Tmp 800-160Mg [Bactrim 1 tab PO Q12HR #20 tab 02/22/17 DS 800-160 mg] Allergies Allergy/AdvReac Type Severity Reaction Status Date / Time Penicillins AdvReac Nausea & Verified 02/22/17 22:03 Vomiting & Diarrhea Review of Systems ROS Statement: Those systems with pertinent positive or pertinent negative responses have been documented in the HPI. ROS Other: All systems not noted in ROS Statement are negative. Past Medical History Past Medical History: Asthma, Diabetes Mellitus, Fibromyalgia, GERD/Reflux, Osteoarthritis (OA), Pneumonia Additional Past Medical History / Comment(s): degenerative disk problems, numbness rt/lft hand 3rd through 5th digits, 2010 renal failure-resolved, hx migraines. patient takes metformin for diabetes only when sugar is high. History of Any Multi-Drug Resistant Organisms: None Reported Past Surgical History: Appendectomy, Section, Hysterectomy, Orthopedic Surgery Additional Past Surgical History / Comment(s): disc surgery-plate and screws in neck, x2 (appentdectomy happened during one of the ), ORIF rt ankle,lt eye repaired and placed back into socket, lipoma removed lt thigh Past Anesthesia/Blood Transfusion Reactions: No Reported Reaction Additional Past Anesthesia/Blood Transfusion Reaction / Comment(s): no complications with prior blood transfusion Past Psychological History: Anxiety Smoking Status: Current every day smoker Past Alcohol Use History: Occasional Past Drug Use History: Marijuana - Past Family History Father Family Medical History: Cancer Additional Family Medical History / Comment(s): . Mother Family Medical History: Hypertension, Osteoarthritis (OA) Additional Family Medical History / Comment(s): MS General Exam - General Exam Comments Initial Comments: General: The patient is awake and alert, in no distress, and does not appear acutely ill. Neck: The neck is supple, there is no tenderness or JVD. Cardiovascular: There is a regular rate and rhythm. No murmur, rub or gallop is appreciated. Respiratory: Lungs are clear to auscultation, respirations are non-labored, breath sounds are equal. No wheezes, stridor, rales, or rhonchi. Musculoskeletal/skin: Patient does have some moderate swelling to the left proximal forearm. There are approximately 5 puncture wounds with a larger laceration to the lateral aspect of the left elbow. There is some mild venous oozing in this area. Patient sensations are intact pulses equal bilaterally 2+ per she does show good range of motion both flexion and extension at the left elbow. There is no tenderness to the left shoulder or down to the left wrist. Strength is 5/5. Neurological: A&O x 3. CN II-XII intact, There are no obvious motor or sensory deficits. Coordination appears grossly intact. Speech is normal. Psychiatric: Normal mood and affect. Limitations: no limitations Course Vital Signs 02/22/17 22:04 Temperature 96.7 F L Pulse Rate 122 H Respiratory 20 Rate Blood Pressure 172/83 O2 Sat by Pulse 99 Oximetry Medical Decision Making - Medical Decision Making Patient's x-ray has been reviewed and does show possible avulsion fracture at the proximal radius. Patient did receive a tetanus. He did receive rabies vaccine. Did receive rabies immunoglobulin. 2 mL was injected around puncture wounds. The remaining was split and injected by nursing staff. Patient received prescription for rabies vaccine to continue on days 3, 7, 14, 28. Patient will be started on antibiotics. She does have a penicillin ALLERGY will be started on clindamycin and Bactrim here in the emergency room. Given first doses. She'll be discharged home with prescriptions continue. She has been given an arm sling. She is advised follow-up the orthopedic doctor tomorrow. Patient has been advised watch for signs of infection return here to the emergency room for any other concerns. Disposition Clinical Impression: Dog bite Disposition: HOME SELF-CARE Instructions: Animal Bite (ED) Additional Instructions: Please use antibiotic and pain medication as prescribed. Please follow up the orthopedic doctor tomorrow. Please use arm sling when up and moving around. Please continue to change dressing at least twice daily and watch for signs infection. Please watch for any increased swelling, pain, fever or chills. Please return to emergency room for any signs of infection or any other concerns. Prescriptions: Clindamycin HCl [Cleocin] 300 mg PO Q6HR 10 Days cap Hydrocodone/Acetaminophen [[place] 5-325] 1 each PO Q6HR PRN #12 tab PRN Reason: Pain Sulfamethox-Tmp 800-160Mg [Bactrim DS 800-160 mg] 1 tab PO Q12HR #20 tab Referrals: Anita Wesley MD [Primary Care Provider] - 1-2 days Time of Disposition: 23:10
== END 2017-02-22 23:25 | disposition home or self-care (01) ==
LOC: EC 21:59
DX: S51.052A Open bite, left elbow, initial encounter (principal); F17.200 Nicotine dependence, unspecified, uncomplicated; Z23 Encounter for immunization; Z88.0 Allergy status to penicillin; W54.0XXA Bitten by dog, initial encounter
CPT/HCPCS: 90375; 90471; 90472; 90675; 90715; 96372; 99283

== ENCOUNTER 2017-03-10 11:19 | Emergency (ER) | payer OTHER ==
[2017-03-10] MEDS ORDERED: SODIUM CHLORIDE 0.9% 500 ML IV STA (11:43)
[2017-03-10] MEDS ORDERED: ONDANSETRON 4 MG/2 ML VIAL IVP STA ×2 (11:43→12:59)
[2017-03-10] MEDS ORDERED: FAMOTIDINE 20 MG/2 ML VIAL IV STA (11:44)
--- NOTE | 2017-03-10 11:47 | ED ---
General Adult HPI - General Chief complaint: Nausea/Vomiting/Diarrhea Stated complaint: Vomiting Time Seen by Provider: 03/10/17 11:29 Source: patient, family, RN notes reviewed Mode of arrival: wheelchair Limitations: no limitations - History of Present Illness Initial comments: Patient is a pleasant 56-year-old female presenting to the emergency department with nausea and vomiting. Onset of symptoms was this morning. Patient did have a fall a week ago and landed on her right posterior ribs. Patient has had discomfort there since that time. Patient has had borderline temperature of 100.1 this morning. Patient still feels nauseated. Patient denies abdominal pain. - Related Data Home Medications Medication Instructions Recorded Confirmed Ranitidine HCl [Zantac] 150 mg PO DAILY PRN 01/16/16 03/10/17 metFORMIN HCL [Metformin HCl] 500 mg PO DAILY PRN 08/23/16 03/10/17 Hydrocodone/Acetaminophen [[place] 1 tab PO Q6HR PRN 03/10/17 03/10/17 5-325] Previous Rx's Medication Instructions Recorded Lisinopril [Zestril] 5 mg PO DAILY #30 tab 08/24/16 Metoclopramide HCl [Reglan] 10 mg PO Q6HR PRN #15 tablet 03/10/17 Allergies Allergy/AdvReac Type Severity Reaction Status Date / Time Penicillins AdvReac Nausea & Verified 03/10/17 11:39 Vomiting & Diarrhea Review of Systems ROS Statement: Those systems with pertinent positive or pertinent negative responses have been documented in the HPI. ROS Other: All systems not noted in ROS Statement are negative. Constitutional: Reports: fever Eyes: Denies: eye pain ENT: Denies: ear pain Respiratory: Denies: cough, dyspnea Cardiovascular: Denies: chest pain Endocrine: Denies: fatigue Gastrointestinal: Reports: nausea, vomiting. Denies: abdominal pain, diarrhea, constipation Genitourinary: Denies: dysuria Musculoskeletal: Reports: back pain (Right ribs) Skin: Denies: rash Neurological: Denies: weakness Past Medical History Past Medical History: Asthma, Diabetes Mellitus, Fibromyalgia, GERD/Reflux, Osteoarthritis (OA), Pneumonia Additional Past Medical History / Comment(s): degenerative disk problems, numbness rt/lft hand 3rd through 5th digits, 2009 renal failure-resolved, hx migraines. patient takes metformin for diabetes only when sugar is high. History of Any Multi-Drug Resistant Organisms: None Reported Past Surgical History: Appendectomy, Section, Hysterectomy, Orthopedic Surgery Additional Past Surgical History / Comment(s): disc surgery-plate and screws in neck, x2 (appentdectomy happened during one of the ), ORIF rt ankle,lt eye repaired and placed back into socket, lipoma removed lt thigh Past Anesthesia/Blood Transfusion Reactions: No Reported Reaction Additional Past Anesthesia/Blood Transfusion Reaction / Comment(s): no complications with prior blood transfusion Past Psychological History: Anxiety Smoking Status: Current every day smoker Past Alcohol Use History: None Reported Past Drug Use History: Marijuana - Past Family History Father Family Medical History: Cancer Additional Family Medical History / Comment(s): . Mother Family Medical History: Hypertension, Osteoarthritis (OA) Additional Family Medical History / Comment(s): MS General Exam Limitations: no limitations General appearance: alert, in no apparent distress Head exam: Present: atraumatic Eye exam: Present: normal appearance, PERRL ENT exam: Present: normal oropharynx Neck exam: Present: normal inspection Respiratory exam: Present: normal lung sounds bilaterally Cardiovascular Exam: Present: regular rate, normal rhythm Expanded Peripheral pulses: 2+: Posterior Tibialis (R), Posterior Tibialis (L) GI/Abdominal exam: Present: soft, tenderness (Mild epigastric tenderness), normal bowel sounds. Absent: distended, guarding, rebound, rigid, pulsatile mass Back exam: Present: other (Right posterior lower ribs above the CVA with mild to moderate tenderness and mild ecchymosis.) Neurological exam: Present: alert Psychiatric exam: Present: normal affect, normal mood Skin exam: Present: normal color Course Vital Signs 03/10/17 03/10/17 11:31 13:07 Temperature 97.2 F L Pulse Rate 113 H 89 Respiratory 20 20 Rate Blood Pressure 148/99 163/78 O2 Sat by Pulse 100 100 Oximetry - Reevaluation(s) Reevaluation #1: 03/10/17 12:59 Patient reevaluated and updated. Patient states overall she is feeling better but still has nausea and would like more nausea medicine. 03/10/17 14:10 Patient again reevaluated and feels again somewhat better. Patient requests discharge however does request Reglan prior to discharge. Patient states she has had this previously and responded well to it. EKG Findings - EKG Comments: EKG Findings:: Normal sinus rhythm 87. MI 158. QRS 64. QT 346. QTc 416. Normal axis. Septal Q waves. Prominent T waves. Medical Decision Making - Lab Data Result diagrams: 03/10/17 11:51 03/10/17 11:51 Lab Results 03/10/17 03/10/17 03/10/17 Range/Units 11:51 11:51 11:51 WBC 5.4 (3.8-10.6) k/uL RBC 4.95 (3.80-5.40) m/uL Hgb 15.6 (11.4-16.0) gm/dL Hct 46.0 (34.0-46.0) % MCV 93.0 (80.0-100.0) fL MCH 31.6 (25.0-35.0) pg MCHC 34.0 (31.0-37.0) g/dL RDW 15.1 (11.5-15.5) % Plt Count 317 (150-450) k/uL Neutrophils % 79 % Lymphocytes % 11 % Monocytes % 5 % Eosinophils % 1 % Basophils % 1 % Neutrophils # 4.2 (1.3-7.7) k/uL Lymphocytes # 0.6 L (1.0-4.8) k/uL Monocytes # 0.3 (0-1.0) k/uL Eosinophils # 0.0 (0-0.7) k/uL Basophils # 0.0 (0-0.2) k/uL PT 9.7 (9.0-12.0) sec INR 1.0 (<1.2) APTT 24.5 (22.0-30.0) sec Sodium 134 L (137-145) mmol/L Potassium 4.2 (3.5-5.1) mmol/L Chloride 92 L (98-107) mmol/L Carbon Dioxide 26 (22-30) mmol/L Anion Gap 16 mmol/L BUN 12 (7-17) mg/dL Creatinine 0.70 (0.52-1.04) mg/dL Est GFR (MDRD) Af Amer >60 (>60 ml/min/1.73 sqM) Est GFR (MDRD) Non-Af >60 (>60 ml/min/1.73 sqM) Glucose 145 H (74-99) mg/dL Calcium 11.6 H (8.4-10.2) mg/dL Total Bilirubin 0.6 (0.2-1.3) mg/dL AST 25 (14-36) U/L ALT 36 (9-52) U/L Alkaline Phosphatase 114 (38-126) U/L Total Protein 8.7 H (6.3-8.2) g/dL Albumin 5.2 H (3.5-5.0) g/dL Amylase 66 (30-110) U/L Lipase 103 (23-300) U/L Urine Color Urine Appearance (Clear) Urine pH (5.0-8.0) Ur Specific [place] (1.001-1.035) Urine Protein (Negative) Urine Glucose (UA) (Negative) Urine Blood (Negative) Urine Nitrite (Negative) Urine Bilirubin (Negative) Urine Urobilinogen (<2.0) mg/dL Ur Leukocyte Esterase (Negative) Urine RBC (0-5) /hpf Urine WBC (0-5) /hpf Ur Squamous Epith Cells (0-4) /hpf Hyaline Casts (0-2) /lpf Urine Mucus (None) /hpf 03/10/17 Range/Units 13:20 WBC (3.8-10.6) k/uL RBC (3.80-5.40) m/uL Hgb (11.4-16.0) gm/dL Hct (34.0-46.0) % MCV (80.0-100.0) fL MCH (25.0-35.0) pg MCHC (31.0-37.0) g/dL RDW (11.5-15.5) % Plt Count (150-450) k/uL Neutrophils % % Lymphocytes % % Monocytes % % Eosinophils % % Basophils % % Neutrophils # (1.3-7.7) k/uL Lymphocytes # (1.0-4.8) k/uL Monocytes # (0-1.0) k/uL Eosinophils # (0-0.7) k/uL Basophils # (0-0.2) k/uL PT (9.0-12.0) sec INR (<1.2) APTT (22.0-30.0) sec Sodium (137-145) mmol/L Potassium (3.5-5.1) mmol/L Chloride (98-107) mmol/L Carbon Dioxide (22-30) mmol/L Anion Gap mmol/L BUN (7-17) mg/dL Creatinine (0.52-1.04) mg/dL Est GFR (MDRD) Af Amer (>60 ml/min/1.73 sqM) Est GFR (MDRD) Non-Af (>60 ml/min/1.73 sqM) Glucose (74-99) mg/dL Calcium (8.4-10.2) mg/dL Total Bilirubin (0.2-1.3) mg/dL AST (14-36) U/L ALT (9-52) U/L Alkaline Phosphatase (38-126) U/L Total Protein (6.3-8.2) g/dL Albumin (3.5-5.0) g/dL Amylase (30-110) U/L Lipase (23-300) U/L Urine Color Yellow Urine Appearance Cloudy H (Clear) Urine pH 7.0 (5.0-8.0) Ur Specific [place] 1.017 (1.001-1.035) Urine Protein 1+ H (Negative) Urine Glucose (UA) Negative (Negative) Urine Blood Small H (Negative) Urine Nitrite Negative (Negative) Urine Bilirubin Negative (Negative) Urine Urobilinogen 2.0 (<2.0) mg/dL Ur Leukocyte Esterase Trace H (Negative) Urine RBC 69 H (0-5) /hpf Urine WBC 1 (0-5) /hpf Ur Squamous Epith Cells 6 H (0-4) /hpf Hyaline Casts 12 H (0-2) /lpf Urine Mucus Rare H (None) /hpf - Radiology Data Radiology results: image reviewed (Right rib x-rays and chest x-ray shows no acute process. No obvious rib fracture. Abdominal x-ray shows no acute process.) Disposition Clinical Impression: Nausea and vomiting Disposition: HOME SELF-CARE Condition: Stable Instructions: Acute Nausea and Vomiting (ED) Additional Instructions: Please follow-up with your doctor in the next day or 2 for recheck. Return for not tolerating fluids, pain, fevers, worsening symptoms or other concerns. Prescriptions: Metoclopramide HCl [Reglan] 10 mg PO Q6HR PRN #15 tablet PRN Reason: Nausea Referrals: Modesto Iraheta DO [Primary Care Provider] - 1-2 days Time of Disposition: 14:11
[2017-03-10 12:15] LABS: Basophils % (A) 1 %; Eosinophils % (A) 1 %; HGB 15.6 gm/dL (11.4-16.0); Lymphocytes # (A) 0.6 k/uL (1.0-4.8); Lymphocytes % (A) 11 %; MCH 31.6 pg (25.0-35.0); Mean Platelet Volume 7.4; Monocytes # (A) 0.3 k/uL (0-1.0); Monocytes % (A) 5 %; Neutrophils # (A) 4.2 k/uL (1.3-7.7); Neutrophils % (A) 79 %; Platelet Count 317 k/uL (150-450); RBC 4.95 m/uL (3.80-5.40); RDW 15.1 % (11.5-15.5); WBC 5.4 k/uL (3.8-10.6)
[2017-03-10 12:20] LABS: Partial Thromboplastin Time 24.5 sec (22.0-30.0); Prothrombin Time 9.7 sec (9.0-12.0)
[2017-03-10 12:26] LABS: ALT 36 U/L (9-52); AST 25 U/L (14-36); Albumin 5.2 g/dL (3.5-5.0); Alkaline Phosphatase 114 U/L (38-126); Amylase 66 U/L (30-110); Anion Gap 16 mmol/L; Blood Urea Nitrogen 12 mg/dL (7-17); Calcium 11.6 mg/dL (8.4-10.2); Carbon Dioxide 26 mmol/L (22-30); Chloride 92 mmol/L (98-107); Glucose 145 mg/dL (74-99); Lipase 103 U/L (23-300); Potassium 4.2 mmol/L (3.5-5.1); Sodium 134 mmol/L (137-145); Total Bilirubin 0.6 mg/dL (0.2-1.3); Total Protein 8.7 g/dL (6.3-8.2)
--- NOTE | 2017-03-10 12:30 | XR ---
EXAMINATION TYPE: XR ribs RT w pa chest x-ray DATE OF EXAM: 03/10/2017 CLINICAL HISTORY: Prior chest x-ray August 23, 2016. TECHNIQUE: Single frontal view of the chest is obtained. A frontal and oblique images of the right-si ded ribs are obtained. COMPARISON: Chest x-ray August 23, 2016. FINDINGS: There is chronic parenchymal change without suspicious focal air space opacity, pleural ef fusion, or pneumothorax seen. The cardiac silhouette size is within normal limits. Anterior fusion p late lower cervical spine is redemonstrated. Osseous structures are somewhat demineralized which is n oted to lower radiographic sensitivity. Dedicated images of right-sided ribs show no acute displaced fracture. Overlying soft tissue is unrem arkable. IMPRESSION: 1. No acute pulmonary process 2. No acute displaced right-sided rib fractures are clearly seen.
--- NOTE | 2017-03-10 12:32 | XR ---
EXAMINATION TYPE: XR KUB DATE OF EXAM: 03/10/2017 12:25 PM CLINICAL HISTORY: Pain as well as nausea and vomiting after fall. TECHNIQUE: Two Upright KUB images of the abdomen are obtained. COMPARISON: Abdominal x-ray and CT abdomen and pelvis January 25, 2016. FINDINGS: Scattered gas is seen in non-distended stomach and small bowel loops. Gas and fecal materia l is seen in non-distended colon and rectum. There is no visceromegaly, pneumoperitoneum, or abnormal calcification appreciated. There is multilevel spurring in the lumbar spine. Lung bases are clear. IMPRESSION: Overall nonobstructive bowel gas pattern.
[2017-03-10 13:37] LABS: Appearance,Urine Cloudy (Clear); Bilirubin,Urine Negative (Negative); Blood,Urine Small (Negative); Color,Urine Yellow; Glucose,Urine (UA) Negative (Negative); Hyaline Casts,Urine 12 /lpf (0-2); Ketones,Urine 2+ (Negative); Leukocyte Esterase,Urine Trace (Negative); Mucus,Urine Rare /hpf; Nitrite,Urine Negative (Negative); Protein,Urine 1+ (Negative); RBC,Urine 69 /hpf (0-5); Specific Gravity,Urine 1.017 (1.001-1.035); Squamous Epithelial Cell,Urine 6 /hpf (0-4); WBC,Urine 1 /hpf (0-5)
[2017-03-10] MEDS ORDERED: METOCLOPRAMIDE 5 MG/ML 2 ML VIAL IVP STA (14:09)
[2017-03-10 23:26] VITALS: BP 163/78; PULSE 89; RESP 20; TEMP 97.2
== END 2017-03-10 14:22 | disposition home or self-care (01) ==
LOC: EC 11:19 → SUPCPDRO 11:19 → EC 14:22
DX: R11.2 Nausea with vomiting, unspecified (principal); R07.81 Pleurodynia; F17.200 Nicotine dependence, unspecified, uncomplicated; Z88.0 Allergy status to penicillin
CPT/HCPCS: 96375 ×3; 96376 ×2; 96374 ×2; 99284 ×2; 36415; 93005; 80053; 82150; 83690; 85025; 85610; 85730; 81001; 87086; 71101; 74018; J2765; J2405

== ENCOUNTER → 2018-10-11 | Outpatient (CLI) | payer OTHER ==
--- NOTE | 2018-10-13 11:42 | MM ---
Reason for exam: screening (asymptomatic). History: Patient is postmenopausal. Physical Findings: A clinical breast exam by your physician is recommended on an annual basis and results should be correlated with mammographic findings. MG Screening Mammo w CAD Bilateral CC and MLO view(s) were taken. No prior studies available for comparison. The breast tissue is heterogeneously dense. This may lower the sensitivity of mammography. There is no discrete abnormality. ASSESSMENT: Negative, BI-RAD 1 RECOMMENDATION: Routine screening mammogram of both breasts in 1 year.
== END | disposition home or self-care (01) ==
LOC: RADMAMWWP 14:43
PROVIDERS: ATTEND Family Medicine
DX: Z12.31 Encounter for screening mammogram for malignant neoplasm of breast (principal)
CPT/HCPCS: 77067

== ENCOUNTER 2019-07-05 07:21 | Day surgery (SDC) | payer OTHER ==
[2019-07-03 16:24] VITALS: BMI 18.7
[~2019-07-05 07:21] MED LIST: LACTATED RINGERS 1,000 ML IV SCH; LIDOCAINE 1% (10MG/ML) FOR IV START INTRADERMA PRN
[2019-07-05 07:48] VITALS: TEMP 97.3
[2019-07-05 07:50] LABS: Glucose,Whole Blood 97 mg/dL (75-99)
[2019-07-05] MEDS ORDERED: PROPOFOL 10 MG/ML 20 ML VIAL IV ONE (08:04)
[2019-07-05] MEDS ORDERED: LIDOCAINE 1% INJ 10MG/ML (20 ML MDV) ONE (08:04)
--- NOTE | 2019-07-05 08:37 | P.PCN ---
Date of Procedure: 07/05/19 Procedure(s) Performed: BRIEF HISTORY: Patient is a 58-year-old pleasant at female, scheduled for an elective colonoscopy as a part of evaluation of positive cologuard. PROCEDURE PERFORMED: Colonoscopy with snare polypectomy. PREOPERATIVE DIAGNOSIS: Positive cologuard. IV sedation per Anesthesia. PROCEDURE: After informed consent was obtained, the patient, was brought into the endoscopy unit. IV sedation was administered by Anesthesia under continuous monitoring. Digital rectal examination was normal. Initially the Olympus CF-160 flexible video colonoscope was then inserted in the rectum and could not be advanced beyond the sigmoid:. The scope was removed and a periodic colonoscopy was then introduced into the rectum and, gradually advanced into the cecum moderate to severe difficulty. Careful examination was performed as the scope was gradually being withdrawn. Ileocecal valve and the appendiceal orifice were visualized and appeared normal. Prep was excellent. In the base of the cecum there was a 1 cm flat polyp that was moved by snare polypectomy. Mucosa of the cecum, ascending colon, transverse colon, descending colon, sigmoid colon, and rectum appeared normal. scattered yesterday diverticulosis seen. Retroflexion was performed in the rectum and no lesions were seen. The patient tolerated the procedure well. IMPRESSION: 1 cm flat cecal polyp status post snare polypectomy Scattered small diverticulosis RECOMMENDATIONS: Findings of this examination were discussed with the patient as well as her family. She was advised to follow with the biopsy result. If the biopsy shows an adenoma she can have a repeat colonoscopy in 3-5 years.
[2019-07-05 08:43] VITALS: RESP 18
[2019-07-05 08:58] VITALS: BP 130/67; PULSE 67
== END 2019-07-05 09:13 | disposition home or self-care (01) ==
LOC: ORWHC2ENDO 07:21
PROVIDERS: ATTEND Internal Medicine Gastroenterology
DX: K63.5 Polyp of colon (principal); K57.30 Diverticulosis of large intestine without perforation or abscess without bleeding; I10 Essential (primary) hypertension; E78.5 Hyperlipidemia, unspecified; F17.210 Nicotine dependence, cigarettes, uncomplicated; E11.9 Type 2 diabetes mellitus without complications; Z88.0 Allergy status to penicillin; Z79.82 Long term (current) use of aspirin; Z79.84 Long term (current) use of oral hypoglycemic drugs; Z79.899 Other long term (current) drug therapy; Z90.710 Acquired absence of both cervix and uterus; Z98.1 Arthrodesis status; Z98.890 Other specified postprocedural states
CPT/HCPCS: 87635; 45385; J2001; J2704; 88305

== ENCOUNTER 2019-11-22 07:21 | Emergency (ER) | payer OTHER ==
[2019-11-22 07:25] VITALS: TEMP 97.9
--- NOTE | 2019-11-22 08:03 | ED ---
General Adult HPI - General Chief complaint: Weakness Stated complaint: med reaction/weakness & fall Time Seen by Provider: 11/22/19 07:21 Source: patient, RN notes reviewed, old records reviewed Mode of arrival: wheelchair Limitations: no limitations - History of Present Illness Initial comments: This is a 59-year-old female presents emergency department stating that she has been weak for the last 2 months. Patient states she's had many falls over that time period. Patient states that it all began when she started taking metoprolol dose has been reduced but she continues to get lightheaded and fall. Patient states she does hurt her right knee and last night she hurt her left wrist. Patient states she did hit her head about a month ago and ever since she has had a headache and she has not had any workup for that. Patient also states she has chronic neck pain but it does appear to be worse after she has fallen multiple times. Patient denies any fever chills or cough per patient denies any chest pain palpitations difficulty breathing. Patient states the reason she is on metoprolol us because of her tachycardia. Patient denies any abdominal pain patient denies nausea vomiting diarrhea. - Related Data Home Medications Medication Instructions Recorded Confirmed metFORMIN HCL [Metformin HCl] 500 mg PO DAILY PRN 08/23/16 07/05/19 Ascorbic Acid [Vitamin C] 500 mg PO DAILY 07/03/19 07/03/19 Aspirin 650 mg PO DAILY PRN 07/03/19 07/03/19 Atorvastatin [Lipitor] 10 mg PO DAILY 07/03/19 07/03/19 Cholecalciferol [Vitamin D3 (25 2,000 unit PO DAILY 07/03/19 07/03/19 Mcg = 1000 Iu)] Cyanocobalamin (Vitamin B-12) 2,500 mcg PO DAILY 07/03/19 07/03/19 [Vitamin B-12] Fluticasone Nasal [place] [Flonase 1 spray EA NOSTRIL DAILY PRN 07/03/19 07/03/19 Nasal [place]] Ibuprofen 600 mg PO DAILY PRN 07/03/19 07/03/19 Vitamin E 400 unit PO DAILY 07/03/19 07/03/19 lisinopriL [Zestril] 5 mg PO DAILY 07/03/19 07/05/19 Previous Rx's Medication Instructions Recorded Sulfamethox-Tmp 800-160Mg [Bactrim 1 each PO Q12HR #14 tab 11/22/19 DS 800-160 mg] amLODIPine [Norvasc] 5 mg PO DAILY #20 tab 11/22/19 Allergies Allergy/AdvReac Type Severity Reaction Status Date / Time Penicillins AdvReac Nausea & Verified 11/22/19 07:21 Vomiting & Diarrhea Review of Systems ROS Statement: Those systems with pertinent positive or pertinent negative responses have been documented in the HPI. ROS Other: All systems not noted in ROS Statement are negative. Past Medical History Past Medical History: Asthma, Diabetes Mellitus, Fibromyalgia, Hypertension, Osteoarthritis (OA), Pneumonia Additional Past Medical History / Comment(s): DDD,numbness rt/lft fingers, 2010 renal failure and seizure when diabetes first diagnosed (2008). , hx migraines, environmental allergies, Hx Bronchial asthma-no problems now., positive test for blood in stool, hx IBS. History of Any Multi-Drug Resistant Organisms: None Reported Past Surgical History: Appendectomy, Section, Hysterectomy, Orthopedic Surgery Additional Past Surgical History / Comment(s): disc surgery-plate and screws in neck, x2 (appendectomy during one of the ), ORIF rt ankle, FX LEFT EYE SOCKET AND lt eye POPPED OUT.repaired and placed back into socket, lipoma removed lt thigh Past Anesthesia/Blood Transfusion Reactions: No Reported Reaction Additional Past Anesthesia/Blood Transfusion Reaction / Comment(s): no complications with prior blood transfusion Past Psychological History: No Psychological Hx Reported Smoking Status: Current every day smoker Past Alcohol Use History: Daily Past Drug Use History: Marijuana - Past Family History Father Family Medical History: Cancer Additional Family Medical History / Comment(s): pancreatic cancer General Exam - General Exam Comments Initial Comments: GENERAL: Patient is well-developed and well-nourished. Patient is nontoxic and well- hydrated and is in mild distress. ENT: Neck is soft and supple. No significant lymphadenopathy is noted. Oropharynx is clear. Moist mucous membranes. Neck has full range of motion without eliciting any pain. EYES: The sclera were anicteric and conjunctiva were pink and moist. Extraocular movements were intact and pupils were equal round and reactive to light. Eyelids were unremarkable. PULMONARY: Unlabored respirations. Good breath sounds bilaterally. No audible rales rhonchi or wheezing was noted. CARDIOVASCULAR: Patient is tachycardic in the 110 beats a minute ABDOMEN: Soft and nontender with normal bowel sounds. SKIN: Skin is clear with no lesions or rashes and otherwise unremarkable. NEUROLOGIC: Patient is alert and oriented x3. Cranial nerves II through XII are grossly intact. Motor and sensory are also intact. Normal speech, volume and content. Symmetrical smile. MUSCULOSKELETAL: Wrist is extremely tender to touch on the radial aspect distally. Patient's right knee has some bruising around it is tender laterally. LYMPHATICS: No significant lymphadenopathy is noted PSYCHIATRIC: Normal psychiatric evaluation. Limitations: no limitations Course Vital Signs 11/22/19 11/22/19 11/22/19 07:21 07:51 07:55 Temperature 97.9 F Pulse Rate 110 H Pulse Rate [ 92 93 Left Supine] Pulse Rate [ Right Standing] Respiratory 16 Rate Blood Pressure 158/94 Blood Pressure 133/101 [Right Arm Sitting] Blood Pressure [Right Arm Standing] Blood Pressure 145/92 [Right Arm Supine] O2 Sat by Pulse 97 Oximetry 11/22/19 11/22/19 07:56 09:32 Temperature Pulse Rate 86 Pulse Rate [ Left Supine] Pulse Rate [ 110 H Right Standing] Respiratory 18 Rate Blood Pressure 129/90 Blood Pressure [Right Arm Sitting] Blood Pressure 111/95 [Right Arm Standing] Blood Pressure [Right Arm Supine] O2 Sat by Pulse 99 Oximetry Procedures - Orthopedic Splinting/Casting Injury #1 Side: left Upper Extremity Injury Location: short arm Upper Extremity Immobilizer: volar splint Medical Decision Making - Medical Decision Making EKG shows normal sinus rhythm at 89 bpm MN interval 246 dresses 76 QT intervals 362 QTC is 440. Patient's EKG shows no ST segment elevation or depression. - Lab Data Result diagrams: 11/22/19 08:06 11/22/19 08:06 Lab Results 11/22/19 11/22/19 11/22/19 Range/Units 08:06 08:06 08:06 WBC 11.3 H (3.8-10.6) k/uL RBC 4.15 (3.80-5.40) m/uL Hgb 13.4 (11.4-16.0) gm/dL Hct 39.6 (34.0-46.0) % MCV 95.4 (80.0-100.0) fL MCH 32.4 (25.0-35.0) pg MCHC 33.9 (31.0-37.0) g/dL RDW 13.2 (11.5-15.5) % Plt Count 285 (150-450) k/uL Neutrophils % 80 % Lymphocytes % 13 % Monocytes % 5 % Eosinophils % 1 % Basophils % 1 % Neutrophils # 9.1 H (1.3-7.7) k/uL Lymphocytes # 1.4 (1.0-4.8) k/uL Monocytes # 0.5 (0-1.0) k/uL Eosinophils # 0.1 (0-0.7) k/uL Basophils # 0.1 (0-0.2) k/uL PT 9.5 (9.0-12.0) sec INR 0.9 (<1.2) APTT 26.1 (22.0-30.0) sec Sodium (137-145) mmol/L Potassium (3.5-5.1) mmol/L Chloride (98-107) mmol/L Carbon Dioxide (22-30) mmol/L Anion Gap mmol/L BUN (7-17) mg/dL Creatinine (0.52-1.04) mg/dL Est GFR (CKD-EPI)AfAm (>60 ml/min/1.73 sqM) Est GFR (CKD-EPI)NonAf (>60 ml/min/1.73 sqM) Glucose (74-99) mg/dL Plasma Lactic Acid Brad (0.7-2.0) mmol/L Calcium (8.4-10.2) mg/dL Magnesium (1.6-2.3) mg/dL Total Bilirubin (0.2-1.3) mg/dL AST (14-36) U/L ALT (4-34) U/L Alkaline Phosphatase (38-126) U/L Troponin I (0.000-0.034) ng/mL Total Protein (6.3-8.2) g/dL Albumin (3.5-5.0) g/dL Urine Color Yellow Urine Appearance Cloudy H (Clear) Urine pH 6.0 (5.0-8.0) Ur Specific [place] 1.008 (1.001-1.035) Urine Protein Negative (Negative) Urine Glucose (UA) Negative (Negative) Urine Ketones Negative (Negative) Urine Blood Moderate H (Negative) Urine Nitrite Positive H (Negative) Urine Bilirubin Negative (Negative) Urine Urobilinogen <2.0 (<2.0) mg/dL Ur Leukocyte Esterase Small H (Negative) Urine RBC 2 (0-5) /hpf Urine WBC 2 (0-5) /hpf Amorphous Sediment Rare H (None) /hpf Urine Bacteria Moderate H (None) /hpf Urine Mucus Rare H (None) /hpf 11/22/19 11/22/19 11/22/19 Range/Units 08:06 08:06 08:06 WBC (3.8-10.6) k/uL RBC (3.80-5.40) m/uL Hgb (11.4-16.0) gm/dL Hct (34.0-46.0) % MCV (80.0-100.0) fL MCH (25.0-35.0) pg MCHC (31.0-37.0) g/dL RDW (11.5-15.5) % Plt Count (150-450) k/uL Neutrophils % % Lymphocytes % % Monocytes % % Eosinophils % % Basophils % % Neutrophils # (1.3-7.7) k/uL Lymphocytes # (1.0-4.8) k/uL Monocytes # (0-1.0) k/uL Eosinophils # (0-0.7) k/uL Basophils # (0-0.2) k/uL PT (9.0-12.0) sec INR (<1.2) APTT (22.0-30.0) sec Sodium 134 L (137-145) mmol/L Potassium 4.2 (3.5-5.1) mmol/L Chloride 101 (98-107) mmol/L Carbon Dioxide 25 (22-30) mmol/L Anion Gap 8 mmol/L BUN 7 (7-17) mg/dL Creatinine 0.40 L (0.52-1.04) mg/dL Est GFR (CKD-EPI)AfAm >90 (>60 ml/min/1.73 sqM) Est GFR (CKD-EPI)NonAf >90 (>60 ml/min/1.73 sqM) Glucose 127 H (74-99) mg/dL Plasma Lactic Acid Brad 0.9 (0.7-2.0) mmol/L Calcium 9.7 (8.4-10.2) mg/dL Magnesium 1.7 (1.6-2.3) mg/dL Total Bilirubin 0.7 (0.2-1.3) mg/dL AST 32 (14-36) U/L ALT 21 (4-34) U/L Alkaline Phosphatase 97 (38-126) U/L Troponin I <0.012 (0.000-0.034) ng/mL Total Protein 7.0 (6.3-8.2) g/dL Albumin 4.4 (3.5-5.0) g/dL Urine Color Urine Appearance (Clear) Urine pH (5.0-8.0) Ur Specific [place] (1.001-1.035) Urine Protein (Negative) Urine Glucose (UA) (Negative) Urine Ketones (Negative) Urine Blood (Negative) Urine Nitrite (Negative) Urine Bilirubin (Negative) Urine Urobilinogen (<2.0) mg/dL Ur Leukocyte Esterase (Negative) Urine RBC (0-5) /hpf Urine WBC (0-5) /hpf Amorphous Sediment (None) /hpf Urine Bacteria (None) /hpf Urine Mucus (None) /hpf Disposition Clinical Impression: Multiple falls, Adverse effects of medication, Wrist fracture, left, Contusion, knee, Urinary tract infection Disposition: HOME SELF-CARE Instructions (If sedation given, give patient instructions): Wrist Fracture in Adults (ED), Urinary Tract Infection in Women (ED) Additional Instructions: Patient should stop her metoprolol and start Norvasc. Prescriptions: Sulfamethox-Tmp 800-160Mg [Bactrim DS 800-160 mg] 1 each PO Q12HR #14 tab amLODIPine [Norvasc] 5 mg PO DAILY #20 tab Is patient prescribed a controlled substance at d/c from ED?: No Referrals: Modesto Iraheta DO [Primary Care Provider] - 1-2 days Time of Disposition: 09:52
[2019-11-22 08:24] LABS: Basophils # (A) 0.1 k/uL (0-0.2); Basophils % (A) 1 %; Eosinophils # (A) 0.1 k/uL (0-0.7); Eosinophils % (A) 1 %; HCT 39.6 % (34.0-46.0); HGB 13.4 gm/dL (11.4-16.0); Lymphocytes # (A) 1.4 k/uL (1.0-4.8); Lymphocytes % (A) 13 %; MCH 32.4 pg (25.0-35.0); MCHC 33.9 g/dL (31.0-37.0); MCV 95.4 fL (80.0-100.0); Mean Platelet Volume 6.8; Monocytes # (A) 0.5 k/uL (0-1.0); Monocytes % (A) 5 %; Neutrophils # (A) 9.1 k/uL (1.3-7.7); Neutrophils % (A) 80 %; Platelet Count 285 k/uL (150-450); RBC 4.15 m/uL (3.80-5.40); RDW 13.2 % (11.5-15.5); WBC 11.3 k/uL (3.8-10.6)
[2019-11-22 08:41] LABS: ALT 21 U/L (4-34); AST 32 U/L (14-36); African American GFR (CKD) >90 (>60 ml/min/1.73 sqM); Albumin 4.4 g/dL (3.5-5.0); Alkaline Phosphatase 97 U/L (38-126); Anion Gap 8 mmol/L; Blood Urea Nitrogen 7 mg/dL (7-17); Calcium 9.7 mg/dL (8.4-10.2); Carbon Dioxide 25 mmol/L (22-30); Chloride 101 mmol/L (98-107); Glucose 127 mg/dL (74-99); Magnesium 1.7 mg/dL (1.6-2.3); Non-African American GFR(CKD) >90 (>60 ml/min/1.73 sqM); Potassium 4.2 mmol/L (3.5-5.1); Sodium 134 mmol/L (137-145); Total Bilirubin 0.7 mg/dL (0.2-1.3)
[2019-11-22 08:45] LABS: INR 0.9 (<1.2); Partial Thromboplastin Time 26.1 sec (22.0-30.0); Prothrombin Time 9.5 sec (9.0-12.0)
--- NOTE | 2019-11-22 08:51 | CT ---
EXAMINATION TYPE: CT brain opal [place] DATE OF EXAM: 11/22/2019 COMPARISON: NONE HISTORY: Frequent falls & weakness with headache and neck pain. CT DLP: 1250.4 mGycm. Automated Exposure Control for Dose Reduction was Utilized. TECHNIQUE: CT scan of the head and cervical spine are performed without contrast. FINDINGS: There is no acute intracranial hemorrhage or midline shift identified. Mild ventricular a nd sulcal prominence. The calvarium is intact. Some mild low attenuation in the periventricular whit e matter. Old fracture deformities medial wall bilateral orbits noted axial image 14 for reference. G lobes are intact bilaterally. Intraconal fat is preserved. Visualized paranasal sinuses are grossly c lear.. Cervical spine is visualized in its entirety from C1 through upper thoracic levels and demonstrates g rade 1 anterolisthesis C3 on C4. There is anterior fusion plate C5-C7 levels with ossific fusion of t he C6 and C7 vertebra. Slight grade 1 retrolisthesis of C7 on T1. Vertebral body heights are maintain ed. Mild disc space narrowing and posterior spurring C3-C4 level. Moderate anterior spurring C4-C5 le maddi with posterior spur disc complex effacing the anterior thecal sac sagittal image 35 and axial ayde ge 50. Moderate disc space narrowing C5-C6 and C7-T1 levels. Posterior spurring effacing the anterior thecal sac at these levels on the sagittal and axial images. C1-C2 articulation is satisfactory on c oronal images. No prevertebral soft tissue swelling. No acute fracture or dislocation noted. Severe a nterior spurring C7-T1 level. Review of axial images shows uncovertebral facet degenerative changes contributing to arnberak-gq-nns ere bilateral neural foraminal narrowing at C3-C4 level on axial image 41. There is additional modera te right-sided neural foraminal narrowing due to uncovertebral facet spurring at C4-C5 level near axi al image 49. Marginal spurring causes ilnospnp-[id number]-uvfikm left-sided neural foraminal narrowing C7-T1 level near axial image 73. There is 5 mm calcified nodule right thyroid lobe axial image 77. Mild emp hysematous change in the lung apices. Iynf-ao-hfaomzkn calcified plaque bilateral carotid bulb level left greater than right. IMPRESSION: 1. There is no acute fracture or dislocation evident in the cervical spine. Postsurgical changes note d. Multilevel spondylolisthesis and degenerative changes as detailed above. 2. No acute intracranial hemorrhage or midline shift is seen. Mild diffuse age-related cerebral atrop hy and chronic small vessel ischemic change is appreciated.
--- NOTE | 2019-11-22 09:06 | XR ---
EXAMINATION TYPE: XR chest 2V DATE OF EXAM: 11/22/2019 COMPARISON: 08/23/2016, chest x-ray 03/10/2017 INDICATION: weakness, cough TECHNIQUE: Frontal and lateral views of the chest are obtained. FINDINGS: The heart size is normal. The pulmonary vasculature is normal. The lungs are clear. Old right rib fractures are present. Anterior cervical fusion is evident. IMPRESSION: 1. No acute pulmonary process.
--- NOTE | 2019-11-22 09:12 | XR ---
EXAMINATION TYPE: XR knee complete RT DATE OF EXAM: 11/22/2019 COMPARISON: None HISTORY: Trauma fall pain TECHNIQUE: Three-view right knee FINDINGS: Joint spaces are preserved. Very tiny medial tibial plateau spur is present. Small joint ef fusion may be present. IMPRESSION: 1. 1. Suggestion of a small joint effusion. 2. Follow-up exams can be performed 7-10 days from acute trauma for continued pain.
--- NOTE | 2019-11-22 09:12 | XR ---
EXAMINATION TYPE: XR wrist complete LT DATE OF EXAM: 11/22/2019 COMPARISON: None HISTORY: Trauma, pain fall one day prior TECHNIQUE: Three-view left wrist FINDINGS: No acute fractures are evident. Joint spaces are preserved. Soft tissues have mild prominen ce. On the lateral projection there is some smooth bordered osseous density along the dorsum of the wrist . Old triquetral fracture could be considered. This area is tender acute fracture potentially could b e considered. Follow-up exams can be performed 7-10 days from acute trauma for continued pain. If there is pain at the anatomic snuff box, nuclear medicine bone scan be recommended for additional evaluation. IMPRESSION: 1. Soft tissue swelling at the wrist including the dorsum of the wrist. 2. There may be an old triquetral fracture on the lateral projection. If there is point tenderness ov er the dorsum of the wrist, occult triquetral fracture could be considered. Follow-up can be recommen ded based on clinical suspicion.
[2019-11-22] MEDS ORDERED: KETOROLAC 15 MG/ML 1 ML VIAL IVP STA (09:38)
[2019-11-22 09:39] LABS: Amorphous Sediment,Urine Rare /hpf; Appearance,Urine Cloudy (Clear); Bacteria,Urine Moderate /hpf; Bilirubin,Urine Negative (Negative); Blood,Urine Moderate (Negative); Color,Urine Yellow; Glucose,Urine (UA) Negative (Negative); Ketones,Urine Negative (Negative); Leukocyte Esterase,Urine Small (Negative); Mucus,Urine Rare /hpf; Nitrite,Urine Positive (Negative); Protein,Urine Negative (Negative); RBC,Urine 2 /hpf (0-5); Specific Gravity,Urine 1.008 (1.001-1.035); Urobilinogen,Urine <2.0 mg/dL (<2.0); WBC,Urine 2 /hpf (0-5)
[2019-11-22] MEDS ORDERED: cefTRIAXone IN SWFI 1,000 MG/10 ML SYRINGE IVP STA (09:42)
[2019-11-22 10:11] VITALS: RESP 16
[2019-11-22 10:20] VITALS: BP 154/91; PULSE 95
== END 2019-11-22 10:20 | disposition home or self-care (01) ==
LOC: EC 07:21
DX: S62.102A Fracture of unspecified carpal bone, left wrist, initial encounter for closed fracture (principal); S80.01XA Contusion of right knee, initial encounter; N39.0 Urinary tract infection, site not specified; T50.905A Adverse effect of unspecified drugs, medicaments and biological substances, initial encounter; R29.6 Repeated falls; E11.9 Type 2 diabetes mellitus without complications; M79.7 Fibromyalgia; J45.909 Unspecified asthma, uncomplicated; I10 Essential (primary) hypertension; F17.200 Nicotine dependence, unspecified, uncomplicated; M19.90 Unspecified osteoarthritis, unspecified site; Z79.84 Long term (current) use of oral hypoglycemic drugs; Z79.82 Long term (current) use of aspirin; Z79.899 Other long term (current) drug therapy; Z88.0 Allergy status to penicillin; Z98.890 Other specified postprocedural states; W18.39XA Other fall on same level, initial encounter; Y92.009 Unspecified place in unspecified non-institutional (private) residence as the place of occurrence of the external cause
CPT/HCPCS: 36415; 93005; 80053; 83605; 83735; 84484; 85025; 85610; 85730; 81001; 73110; 73562; 71046; 72125; 70450; 99285; 96374; 96375; 29125; J0696; J1885

== ENCOUNTER → 2019-12-19 | Outpatient (CLI) | payer OTHER ==
--- NOTE | 2019-12-20 06:44 | MR ---
EXAMINATION TYPE: MR cervical spine wo/w con DATE OF EXAM: 12/19/2019 COMPARISON: None HISTORY: Radiculopathy, Cervical Region CONTRAST: Standard multiplanar, multisequence MRI departmental protocol utilizing 5 mL intravenous Gadavist jazmine olinium contrast. There is metal artifact from anterior fusion surgery at levels from C5 to C7. Vertebra have fairly no rmal alignment. There is anterior mild subluxation of C3 in relation to C4. There is moderate narrowi ng of the spinal canal at the C3-4 level. There is posterior disc herniation at C3-4 and C4-5 contrib uting to the spinal canal narrowing. Spinal canal is narrowed to less than 5 mm at C3-4. There is foc al edema in the cord at the C3-4 disc level. The brainstem is intact. 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 There is adequate spinal canal and no significant stenosis at C7-T1. Sp inal canal measures 8.4 mm at C4-5 level. There is no evidence of a fracture. There is no evidence of cervical paraspinal mass. Contrast images show no pathologic enhancement. IMPRESSION: Previous fusion surgery. Posterior mild disc herniations at C3-4 and C4-5. There is moderately severe spinal stenosis at C3-4 with edema in the cervical spinal cord. There is a 3.5 mm degenerative sublu xation at C3-4 contributing to the spinal stenosis.
== END | disposition home or self-care (01) ==
LOC: RADMRIMAIN 09:52
PROVIDERS: ATTEND Physician Assistant Medical
DX: M48.02 Spinal stenosis, cervical region (principal); M50.11 Cervical disc disorder with radiculopathy, high cervical region; S13.140A Subluxation of C3/C4 cervical vertebrae, initial encounter; Z98.1 Arthrodesis status
CPT/HCPCS: 72156; A9585

== ENCOUNTER 2020-01-28 13:51 | Inpatient (IN) | payer OTHER ==
--- NOTE | 2020-01-28 15:28 | ED ---
General Adult HPI - General Chief complaint: Extremity Problem,Nontraumatic Stated complaint: Pain/Swelling Time Seen by Provider: 01/28/20 13:55 Source: patient, family, RN notes reviewed, old records reviewed Mode of arrival: wheelchair Limitations: no limitations - History of Present Illness Initial comments: This is a 59-year-old female who presents to the emergency department with a past medical history significant for diabetes hypertension high cholesterol. Patient also states she has fibromyalgia as well as some cervical disc problems. Patient comes in today because since April she is becoming more more weak and having more more falls. Patient states she is so weak now she hasn't been able to stand other than that help assist to go to the bathroom. Patient denies any injury recently. Patient states her left leg is by far weaker than her right which is been ongoing lately it is starting to get some edema. Patient states both arms are weak and she has quite a bit of jerking all of which is been ongoing for many months. Patient states the jerking is however getting worse in the upper extremity weakness is also getting worse. Patient states all of her symptoms of begun back somewhere around April however all of them have progressed slowly. MRI showed severe spinal stenosis of the cervical spine with some associated edema. - Related Data Home Medications Medication Instructions Recorded Confirmed Ascorbic Acid [Vitamin C] 500 mg PO DAILY 07/03/19 01/28/20 Atorvastatin [Lipitor] 10 mg PO DAILY 07/03/19 01/28/20 Cholecalciferol [Vitamin D3 (25 2,000 unit PO DAILY 07/03/19 01/28/20 Mcg = 1000 Iu)] Cyanocobalamin (Vitamin B-12) 2,500 mcg PO DAILY 07/03/19 01/28/20 [Vitamin B-12] Vitamin E 400 unit PO DAILY 07/03/19 01/28/20 lisinopriL [Zestril] 5 mg PO BID 07/03/19 01/28/20 Cyclobenzaprine [Flexeril] 5 - 10 mg PO HS PRN 11/22/19 01/28/20 Fish Oil/Dha/Epa [Fish Oil 1,200 1 cap PO DAILY 11/22/19 01/28/20 mg Fish Oil] Calcium Carbonate [Calcium] 600 mg PO DAILY 01/28/20 01/28/20 Fluticasone Nasal [place] [Flonase 1 spray EA NOSTRIL BID 01/28/20 01/28/20 Nasal [place]] metFORMIN HCL [Glucophage] See Protocol PO DAILY PRN 01/28/20 01/28/20 Previous Rx's Medication Instructions Recorded amLODIPine [Norvasc] 5 mg PO DAILY #20 tab 11/22/19 Allergies Allergy/AdvReac Type Severity Reaction Status Date / Time Penicillins AdvReac Nausea & Verified 01/28/20 16:35 Vomiting & Diarrhea Review of Systems ROS Statement: Those systems with pertinent positive or pertinent negative responses have been documented in the HPI. ROS Other: All systems not noted in ROS Statement are negative. Past Medical History Past Medical History: Asthma, Diabetes Mellitus, Fibromyalgia, Hypertension, Osteoarthritis (OA), Pneumonia Additional Past Medical History / Comment(s): DDD,numbness rt/lft fingers, 2010 renal failure and seizure when diabetes first diagnosed (2008). , hx migraines, environmental allergies, hx IBS. History of Any Multi-Drug Resistant Organisms: None Reported Past Surgical History: Appendectomy, Section, Hysterectomy, Orthopedic Surgery Additional Past Surgical History / Comment(s): disc surgery-plate and screws in neck, x2 (appendectomy during one of the ), ORIF rt ankle, FX LEFT EYE SOCKET AND lt eye POPPED OUT.repaired and placed back into socket, lipoma removed lt thigh Past Anesthesia/Blood Transfusion Reactions: No Reported Reaction Additional Past Anesthesia/Blood Transfusion Reaction / Comment(s): no complications with prior blood transfusion Past Psychological History: No Psychological Hx Reported Smoking Status: Current every day smoker Past Alcohol Use History: Daily Past Drug Use History: Marijuana - Past Family History Father Family Medical History: Cancer Additional Family Medical History / Comment(s): pancreatic cancer General Exam - General Exam Comments Initial Comments: GENERAL: Patient is well-developed and well-nourished. Patient is nontoxic and well- hydrated and is in mild distress. ENT: Neck is soft and supple. No significant lymphadenopathy is noted. Oropharynx is clear. Moist mucous membranes. Neck has full range of motion without eliciting any pain. EYES: The sclera were anicteric and conjunctiva were pink and moist. Extraocular movements were intact and pupils were equal round and reactive to light. Eyelids were unremarkable. PULMONARY: Unlabored respirations. Good breath sounds bilaterally. No audible rales rhonchi or wheezing was noted. CARDIOVASCULAR: There is a regular rate and rhythm without any murmurs gallops or rubs. Patient has good DP pulses bilaterally ABDOMEN: Soft and nontender with normal bowel sounds. SKIN: Skin is clear with no lesions or rashes and otherwise unremarkable. NEUROLOGIC: Patient is alert and oriented x3. Cranial nerves II through XII are grossly intact. Patient has a 1 out of 5 strength with plantar and dorsiflexion on the right leg and 3 out of 5 strength left leg. Patient's upper extremity weakness es 3 out of 5 bilaterally. MUSCULOSKELETAL: Normal extremities with adequate strength and full range of motion. No lower extremity swelling or edema. No calf tenderness. Patient has 1+ edema to the right leg. LYMPHATICS: No significant lymphadenopathy is noted PSYCHIATRIC: Normal psychiatric evaluation. Limitations: no limitations Course Vital Signs 01/28/20 01/28/20 13:56 16:45 Temperature 97.3 F L Pulse Rate 100 78 Respiratory 18 18 Rate Blood Pressure 160/8 143/100 O2 Sat by Pulse 99 98 Oximetry Medical Decision Making - Medical Decision Making I reviewed the MRI that was done in December shows some severe is cervical stenosis some edema. I spoke with Dr. Bolton organ admit the patient and consult Dr. Lay and neurology. - Lab Data Result diagrams: 01/28/20 15:29 01/28/20 15:29 Lab Results 01/28/20 01/28/20 01/28/20 Range/Units 15:29 15:29 16:49 WBC 8.9 (3.8-10.6) k/uL RBC 4.74 (3.80-5.40) m/uL Hgb 16.1 H (11.4-16.0) gm/dL Hct 46.9 H (34.0-46.0) % MCV 98.9 (80.0-100.0) fL MCH 34.0 (25.0-35.0) pg MCHC 34.4 (31.0-37.0) g/dL RDW 13.3 (11.5-15.5) % Plt Count 289 (150-450) k/uL MPV 7.5 Neutrophils % 73 % Lymphocytes % 15 % Monocytes % 7 % Eosinophils % 3 % Basophils % 1 % Neutrophils # 6.5 (1.3-7.7) k/uL Lymphocytes # 1.4 (1.0-4.8) k/uL Monocytes # 0.6 (0-1.0) k/uL Eosinophils # 0.2 (0-0.7) k/uL Basophils # 0.1 (0-0.2) k/uL Sodium 134 L (137-145) mmol/L Potassium 4.1 (3.5-5.1) mmol/L Chloride 103 (98-107) mmol/L Carbon Dioxide 22 (22-30) mmol/L Anion Gap 9 mmol/L BUN 7 (7-17) mg/dL Creatinine 0.40 L (0.52-1.04) mg/dL Est GFR (CKD-EPI)AfAm >90 (>60 ml/min/1.73 sqM) Est GFR (CKD-EPI)NonAf >90 (>60 ml/min/1.73 sqM) Glucose 96 (74-99) mg/dL POC Glucose (mg/dL) 101 H (75-99) mg/dL POC Glu Fan Mail Clerk ID Calcium 9.9 (8.4-10.2) mg/dL Magnesium 1.9 (1.6-2.3) mg/dL Total Bilirubin 0.6 (0.2-1.3) mg/dL AST 28 (14-36) U/L ALT 15 (4-34) U/L Alkaline Phosphatase 100 (38-126) U/L Total Protein 7.4 (6.3-8.2) g/dL Albumin 4.4 (3.5-5.0) g/dL Disposition Clinical Impression: Cervical stenosis of spinal canal Disposition: ADMITTED IP TO THIS HOSP Referrals: Modesto Iraheta DO [Primary Care Provider] - 1-2 days Time of Disposition: 16:56
[2020-01-28 15:46] LABS: Basophils # (A) 0.1 k/uL (0-0.2); Basophils % (A) 1 %; Eosinophils # (A) 0.2 k/uL (0-0.7); Eosinophils % (A) 3 %; HCT 46.9 % (34.0-46.0); HGB 16.1 gm/dL (11.4-16.0); Lymphocytes # (A) 1.4 k/uL (1.0-4.8); Lymphocytes % (A) 15 %; MCHC 34.4 g/dL (31.0-37.0); MCV 98.9 fL (80.0-100.0); Mean Platelet Volume 7.5; Monocytes # (A) 0.6 k/uL (0-1.0); Monocytes % (A) 7 %; Neutrophils # (A) 6.5 k/uL (1.3-7.7); Neutrophils % (A) 73 %; Platelet Count 289 k/uL (150-450); RBC 4.74 m/uL (3.80-5.40); RDW 13.3 % (11.5-15.5); WBC 8.9 k/uL (3.8-10.6)
[2020-01-28 15:56] LABS: ALT 15 U/L (4-34); AST 28 U/L (14-36); African American GFR (CKD) >90 (>60 ml/min/1.73 sqM); Albumin 4.4 g/dL (3.5-5.0); Alkaline Phosphatase 100 U/L (38-126); Anion Gap 9 mmol/L; Blood Urea Nitrogen 7 mg/dL (7-17); Calcium 9.9 mg/dL (8.4-10.2); Carbon Dioxide 22 mmol/L (22-30); Chloride 103 mmol/L (98-107); Glucose 96 mg/dL (74-99); Magnesium 1.9 mg/dL (1.6-2.3); Non-African American GFR(CKD) >90 (>60 ml/min/1.73 sqM); Potassium 4.1 mmol/L (3.5-5.1); Sodium 134 mmol/L (137-145); Total Bilirubin 0.6 mg/dL (0.2-1.3); Total Protein 7.4 g/dL (6.3-8.2)
--- NOTE | 2020-01-28 16:25 | US ---
EXAMINATION TYPE: US venous doppler duplex LE RT DATE OF EXAM: 01/28/2020 3:58 PM COMPARISON: NONE CLINICAL HISTORY: Pain in edema to the right leg. Right leg pain SIDE PERFORMED: Right TECHNIQUE: The lower extremity deep venous system is examined utilizing real time linear array sonog trent with graded compression, doppler sonography and color-flow sonography. VESSELS IMAGED: Common Femoral Vein Deep Femoral Vein Greater Saphenous Vein * Femoral Vein Popliteal Vein Small Saphenous Vein * Proximal Calf Veins (* superficial vessels) Right Leg: Appears negative for DVT IMPRESSION: No evidence of DVT in the right lower extremity.
[2020-01-28] MEDS ORDERED: methylPREDNISolone SOD SUCCI 125 MG/2 ML VIAL IV STA (16:26)
[2020-01-28 16:51] LABS: Glucose,Whole Blood 101 mg/dL (75-99)
[2020-01-28] MEDS ORDERED: SODIUM CHLORIDE 0.9% 1,000 ML IV ONE (16:56)
[2020-01-28] MEDS ORDERED: INSULIN ASPART (NovoLOG) 100 UNIT/ML VIAL SQ SCH (17:30)
[2020-01-28 19:35] LABS: Glucose,Whole Blood 199 mg/dL (75-99)
[2020-01-28 19:37] VITALS: BP 161/89; PULSE 99; RESP 19; TEMP 98.1
--- NOTE | 2020-02-14 08:55 | P.HPIM ---
History of Present Illness H&P Date: 01/28/20 Patient is a 59-year-old female with known history of fibromyalgia and degenerative disease reviewed the hospital due to lower extremity pain and difficulty walking. Patient left AGAINST MEDICAL ADVICE. Please refer to ER and patient carenote. Past Medical History Past Medical History: Asthma, Diabetes Mellitus, Fibromyalgia, Hypertension, Osteoarthritis (OA), Pneumonia Additional Past Medical History / Comment(s): DDD,numbness rt/lft fingers, 2010 renal failure and seizure when diabetes first diagnosed (2008). , hx migraines, environmental allergies, hx IBS. History of Any Multi-Drug Resistant Organisms: None Reported Past Surgical History: Appendectomy, Section, Hysterectomy, Orthopedic Surgery Additional Past Surgical History / Comment(s): disc surgery-plate and screws in neck, x2 (appendectomy during one of the ), ORIF rt ankle, FX LEFT EYE SOCKET AND lt eye POPPED OUT.repaired and placed back into socket, lipoma removed lt thigh Past Anesthesia/Blood Transfusion Reactions: No Reported Reaction Additional Past Anesthesia/Blood Transfusion Reaction / Comment(s): no complications with prior blood transfusion Past Psychological History: No Psychological Hx Reported Smoking Status: Current every day smoker Past Alcohol Use History: Daily Additional Past Alcohol Use History / Comment(s): 2-3 beers daily,. smokes 1 ppd , started smoking age 13, rolls her own. Past Drug Use History: Marijuana Additional Drug Use History / Comment(s): Smokes marijuana daily - Past Family History Father Family Medical History: Cancer Additional Family Medical History / Comment(s): pancreatic cancer Medications and Allergies Home Medications Medication Instructions Recorded Confirmed Type Ascorbic Acid [Vitamin C] 500 mg PO DAILY 07/03/19 01/28/20 History Atorvastatin [Lipitor] 10 mg PO DAILY 07/03/19 01/28/20 History Cholecalciferol [Vitamin D3 (25 2,000 unit PO DAILY 07/03/19 01/28/20 History Mcg = 1000 Iu)] Cyanocobalamin (Vitamin B-12) 2,500 mcg PO DAILY 07/03/19 01/28/20 History [Vitamin B-12] Vitamin E 400 unit PO DAILY 07/03/19 01/28/20 History lisinopriL [Zestril] 5 mg PO BID 07/03/19 01/28/20 History Cyclobenzaprine [Flexeril] 5 - 10 mg PO HS PRN 11/22/19 01/28/20 History Fish Oil/Dha/Epa [Fish Oil 1,200 1 cap PO DAILY 11/22/19 01/28/20 History mg Fish Oil] amLODIPine [Norvasc] 5 mg PO DAILY #20 tab 11/22/19 01/28/20 Rx Calcium Carbonate [Calcium] 600 mg PO DAILY 01/28/20 01/28/20 History Fluticasone Nasal [place] [Flonase 1 spray EA NOSTRIL BID 01/28/20 01/28/20 History Nasal [place]] metFORMIN HCL [Glucophage] See Protocol PO DAILY PRN 01/28/20 01/28/20 History Allergies Allergy/AdvReac Type Severity Reaction Status Date / Time Penicillins AdvReac Nausea & Verified 01/28/20 16:35 Vomiting & Diarrhea Results CBC & Chem 7: 01/28/20 15:29 01/28/20 15:29 Thrombosis Risk Factor Assmnt - Choose All That Apply Each Factor Represents 1 point: Age 41-60 years Thrombosis Risk Factor Assessment Total Risk Factor Score: 1 Thrombosis Risk Factor Assessment Level: Low Risk
--- NOTE | 2020-02-14 08:56 | P.DS ---
Providers Date of admission: 01/28/20 16:56 Expected date of discharge: 01/28/20 Attending physician: Ho Bolton Consults: 01/28/20 16:56 Consult Physician Urgent Consulting Provider: Jo Ann Millan Consult Reason/Comments: Cervical stenosis Do you want consulting provider notified?: Yes Consult Physician Urgent Consulting Provider: Violeta Lay Consult Reason/Comments: Cervical stenosis Do you want consulting provider notified?: Yes [facility] Course: Patient left AMA Patient Condition at Discharge: Undetermined Plan - Discharge Summary Discharge Rx Participant: No New Discharge Prescriptions: No Action lisinopriL [Zestril] 5 mg PO BID Cyanocobalamin (Vitamin B-12) [Vitamin B-12] 2,500 mcg PO DAILY Ascorbic Acid [Vitamin C] 500 mg PO DAILY Vitamin E 400 unit PO DAILY Cholecalciferol [Vitamin D3 (25 Mcg = 1000 Iu)] 2,000 unit PO DAILY Atorvastatin [Lipitor] 10 mg PO DAILY amLODIPine [Norvasc] 5 mg PO DAILY #20 tab Cyclobenzaprine [Flexeril] 5 - 10 mg PO HS PRN PRN Reason: Muscle Pain Fish Oil/Dha/Epa [Fish Oil 1,200 mg Fish Oil] 1 cap PO DAILY metFORMIN HCL [Glucophage] See Protocol PO DAILY PRN PRN Reason: BS>125 Fluticasone Nasal [place] [Flonase Nasal [place]] 1 spray EA NOSTRIL BID Calcium Carbonate [Calcium] 600 mg PO DAILY Discharge Medication List Ascorbic Acid [Vitamin C] 500 mg PO DAILY 07/03/19 [History] Atorvastatin [Lipitor] 10 mg PO DAILY 07/03/19 [History] Cholecalciferol [Vitamin D3 (25 Mcg = 1000 Iu)] 2,000 unit PO DAILY 07/03/19 [History] Cyanocobalamin (Vitamin B-12) [Vitamin B-12] 2,500 mcg PO DAILY 07/03/19 [History] Vitamin E 400 unit PO DAILY 07/03/19 [History] lisinopriL [Zestril] 5 mg PO BID 07/03/19 [History] Cyclobenzaprine [Flexeril] 5 - 10 mg PO HS PRN 11/22/19 [History] Fish Oil/Dha/Epa [Fish Oil 1,200 mg Fish Oil] 1 cap PO DAILY 11/22/19 [History] amLODIPine [Norvasc] 5 mg PO DAILY #20 tab 11/22/19 [Rx] Calcium Carbonate [Calcium] 600 mg PO DAILY 01/28/20 [History] Fluticasone Nasal [place] [Flonase Nasal [place]] 1 spray EA NOSTRIL BID 01/28/20 [History] metFORMIN HCL [Glucophage] See Protocol PO DAILY PRN 01/28/20 [History] Follow up Appointment(s)/Referral(s): Modesto Iraheta DO [Primary Care Provider] - 1-2 days Discharge Disposition: Left Against Medical Advice
== END 2020-01-29 00:05 | disposition left against medical advice (07) | DRG 552 ==
LOC: EC 13:51 → 5NMEDONC 16:56
PROVIDERS: ADMIT Internal Medicine; ATTEND Internal Medicine
DX: M48.02 Spinal stenosis, cervical region (principal); E11.9 Type 2 diabetes mellitus without complications; I10 Essential (primary) hypertension; M79.7 Fibromyalgia; J45.909 Unspecified asthma, uncomplicated; M19.90 Unspecified osteoarthritis, unspecified site; R29.6 Repeated falls; M79.606 Pain in leg, unspecified; R26.2 Difficulty in walking, not elsewhere classified; F17.210 Nicotine dependence, cigarettes, uncomplicated; Z71.6 Tobacco abuse counseling; Z79.899 Other long term (current) drug therapy; Z91.81 History of falling; Z86.69 Personal history of other diseases of the nervous system and sense organs; Z90.49 Acquired absence of other specified parts of digestive tract; Z90.710 Acquired absence of both cervix and uterus; Z87.19 Personal history of other diseases of the digestive system; Z87.42 Personal history of other diseases of the female genital tract; Z87.81 Personal history of (healed) traumatic fracture; Z87.2 Personal history of diseases of the skin and subcutaneous tissue; Z87.448 Personal history of other diseases of urinary system; Z87.01 Personal history of pneumonia (recurrent); Z98.890 Other specified postprocedural states; Z98.891 History of uterine scar from previous surgery; Z88.0 Allergy status to penicillin; Z91.09 Other allergy status, other than to drugs and biological substances; Z80.0 Family history of malignant neoplasm of digestive organs
CPT/HCPCS: 36415; 80053; 83735; 85025; 96361; 96374; 99285

== ENCOUNTER → 2020-02-16 | Outpatient (CLI) | payer OTHER ==
[2020-02-16 13:43] LABS: Basophils # (A) 0.1 k/uL (0-0.2); Basophils % (A) 1 %; Eosinophils # (A) 0.1 k/uL (0-0.7); Eosinophils % (A) 2 %; HCT 46.6 % (34.0-46.0); HGB 15.9 gm/dL (11.4-16.0); Lymphocytes # (A) 1.5 k/uL (1.0-4.8); Lymphocytes % (A) 16 %; MCH 33.3 pg (25.0-35.0); MCHC 34.2 g/dL (31.0-37.0); MCV 97.4 fL (80.0-100.0); Mean Platelet Volume 7.2; Monocytes # (A) 0.4 k/uL (0-1.0); Monocytes % (A) 4 %; Neutrophils # (A) 7.1 k/uL (1.3-7.7); Neutrophils % (A) 77 %; Platelet Count 278 k/uL (150-450); RBC 4.78 m/uL (3.80-5.40); RDW 12.9 % (11.5-15.5); WBC 9.2 k/uL (3.8-10.6)
[2020-02-16 13:51] LABS: African American GFR (CKD) >90 (>60 ml/min/1.73 sqM); Anion Gap 13 mmol/L; Blood Urea Nitrogen 5 mg/dL (7-17); Calcium 9.8 mg/dL (8.4-10.2); Carbon Dioxide 21 mmol/L (22-30); Chloride 98 mmol/L (98-107); Glucose 197 mg/dL (74-99); Non-African American GFR(CKD) >90 (>60 ml/min/1.73 sqM); Potassium 4.1 mmol/L (3.5-5.1); Sodium 132 mmol/L (137-145)
[2020-02-16 13:53] LABS: INR 0.9 (<1.2); Partial Thromboplastin Time 27.1 sec (22.0-30.0); Prothrombin Time 9.8 sec (9.0-12.0)
--- NOTE | 2020-02-16 14:58 | XR ---
EXAMINATION TYPE: XR chest 2V DATE OF EXAM: 02/16/2020 COMPARISON: 11/22/2019 INDICATION: Presurgical clearance TECHNIQUE: Frontal and lateral views of the chest are obtained. FINDINGS: The heart size is normal. The pulmonary vasculature is normal. The lungs are clear. Prior lower cervical anterior fusion is evident IMPRESSION: 1. No acute pulmonary process.
== END | disposition home or self-care (01) ==
LOC: LABPAT 12:47
PROVIDERS: ATTEND Orthopaedic Surgery Orthopaedic Surgery of the Spine
DX: Z01.818 Encounter for other preprocedural examination (principal); M48.02 Spinal stenosis, cervical region
CPT/HCPCS: 71046; 80048; 85025; 85610; 85730; 86850; 86900; 86901

== ENCOUNTER 2020-02-21 08:57 | Inpatient (IN) | payer OTHER ==
[~2020-02-21 08:57] MED LIST changes: -LACTATED RINGERS 1,000 ML IV SCH; -LIDOCAINE 1% (10MG/ML) FOR IV START INTRADERMA PRN; +ceFAZolin 1,000 MG in SODIUM CHLORIDE 0.9% IRRIGATIO 1,000 ML IRRIGATION PRN
[2020-02-21] MEDS ORDERED: ONDANSETRON 4 MG/2 ML VIAL ONE (09:34)
[2020-02-21] MEDS ORDERED: LACTATED RINGERS 1,000 ML IV ONE ×2 (09:49→13:15)
[2020-02-21] MEDS ORDERED: ONDANSETRON 4 MG/2 ML VIAL IVP ONE (09:54)
[2020-02-21 10:03] LABS: Glucose,Whole Blood 108 mg/dL (75-99)
[2020-02-21] MEDS ORDERED: fentaNYL (PF) 50 MCG/ML 2 ML AMP IVP ONE (10:25)
[2020-02-21] MEDS ORDERED: MIDAZOLAM 2 MG/2 ML VIAL ONE (11:46)
[2020-02-21] MEDS ORDERED: fentaNYL (PF) 50 MCG/ML 2 ML AMP ONE (11:46)
[2020-02-21] MEDS ORDERED: PROPOFOL 10 MG/ML 20 ML VIAL IV ONE (11:46)
[2020-02-21] MEDS ORDERED: GLYCOPYRROLATE 0.2 MG/ML 2 ML VIAL ONE (11:46)
[2020-02-21] MEDS ORDERED: ROCURONIUM 10 MG/ML (10 ML VIAL) IV ONE (11:46)
[2020-02-21] MEDS ORDERED: NEOSTIGMINE 1 MG/ML 10 ML VIAL ONE (11:46)
[2020-02-21] MEDS ORDERED: HYDROmorphone (PF) 1 MG/ML ONE (11:46)
[2020-02-21] MEDS ORDERED: DEXAMETHASONE SOD PHOSPHATE 10 MG/ML 1 ML VIAL ONE (11:46)
[2020-02-21] MEDS ORDERED: PHENYLEPHRINE 10 MG/ML VIAL ONE (11:46)
[2020-02-21] MEDS ORDERED: LIDOCAINE 1% INJ 10MG/ML (20 ML MDV) ONE (11:46)
[2020-02-21] MEDS ORDERED: GELATIN SPONGE,ABSORB (LARGE) 1 EACH SPONGE MISCELLANE ONE (12:25)
[2020-02-21] MEDS ORDERED: THROMBIN (BOVINE) 5,000 UNIT VIAL TOPICAL ONE (12:26)
[2020-02-21] MEDS ORDERED: BUPIVACAINE-EPI 0.5%-1:200,000 10 ML VIAL SQ ONE (12:26)
--- NOTE | 2020-02-21 13:48 | XR ---
EXAMINATION TYPE: XR cervical spine 1V DATE OF EXAM: 02/21/2020 COMPARISON: NONE HISTORY: NEEDLE PLACEMENT TECHNIQUE: Crosstable lateral view of the cervical spine FINDINGS: Intraoperative localization device is noted at the posterior C4-5 disc space level. IMPRESSION: As above
[2020-02-21] MEDS ORDERED: ONDANSETRON 4 MG/2 ML VIAL IVP PRN (13:54)
[2020-02-21] MEDS ORDERED: ACETAMINOPHEN TAB 325 MG TAB PO PRN (13:54)
[2020-02-21] MEDS ORDERED: metFORMIN 500 MG TAB PO PRN (13:55)
--- NOTE | 2020-02-21 13:58 | XR ---
EXAMINATION TYPE: XR cervical spine 1V DATE OF EXAM: 02/21/2020 COMPARISON: NONE HISTORY: Hardware placement TECHNIQUE: Crosstable lateral view of the cervical spine is submitted. FINDINGS: Anterior fixation plate and screws are noted as well as intervertebral body spacers extendi ng from C3 through C6. Postoperative alignment is anatomic. IMPRESSION: As above
--- NOTE | 2020-02-21 14:05 | P.OP ---
Date of Procedure: 02/21/20 Preoperative Diagnosis: Severe cervical myelopathy, upper and lower extremity weakness, inability to ambulate, severe cervical stenosis C3 4 C4 5, cervical myelomalacia, history of prior cervical fusion C567, Postoperative Diagnosis: Severe cervical myelopathy, upper and lower extremity weakness, inability to ambulate, severe cervical stenosis C3 4 C4 5, cervical myelomalacia, history of prior cervical fusion C567 Findings of solid fusion at C56 and 67 Anesthesia: GETA Pathology: none sent Condition: stable Disposition: PACU Description of Procedure: BRIEF OPERATIVE NOTE Preoperative Diagnosis:Severe cervical myelopathy, upper and lower extremity weakness, inability to ambulate, severe cervical stenosis C3 4 C4 5, cervical myelomalacia, history of prior cervical fusion C567, spondylolisthesis C3 4 Postoperative Diagnosis:Severe cervical myelopathy, upper and lower extremity weakness, inability to ambulate, severe cervical stenosis C3 4 C4 5, cervical myelomalacia, history of prior cervical fusion C567, spondylolisthesis C3 4 with findings of solid fusion C5 6 C6 7 Procedure: Removal of deep hardware C5 6 and 7 Exploration of fusion C5 6 C6 7 with findings of solid fusion Anterior cervical decompression with discectomy and fusion C3 4 C4 5 Placement of interbody graft C3 4 C4 5 Application of anterior cervical plate C3 4 C4 5 C5 6 Surgeon: Dr. Lay Director Of Environmental Services: Malik Aparicio is present throughout the entire the case persistence during positioning, dissection, exposure, visualization, and all crucial elements of the case as well as closure. Anesthesia: General anesthesia Estimated blood loss: Approximately 50 mL Complications: None apparent Components implanted: Removed anterior cervical plate with 5 screws into the vertebral bodies at C56 and 7 and 2 locking screws. The removed hardware was evaluated and found to be in total. We placed new K2M [place] anterior cervical plate with V Kos interbody allograft bone graft 1 mL of DBX bone putty Disposition: To recovery room in good stable condition. OPERATIVE INDICATIONS The patient has had long-standing issues in their neck and upper extremities. She has been having difficulty with her upper extremities for years but has been also been developing severe weakness at her lower extremities and inability and laid over the past for 5 months. She is now unable to ambulate and has severe limited use of her bilateral upper extremities. She is not able to hold utensils well she has difficulty with feeding herself. She has severely hyperreflexic and has findings consistent with severe cervical myelopathy. Her imaging showed severe cervical stenosis at C3 4 and C4 5 with myelomalacia behind those levels. She had a spondylolisthesis and has had a prior decompression and fusion at C5 6 and 7 which appeared stable with some lucency C5 6. We felt that the severe stenosis and myelomalacia was her primary cause for her myelopathy and her symptoms. We discussed surgery with her at length. The patient has some issues with compliance in terms of treatment. She had been admitted to the hospital but signed out AMA before we could see her just a few weeks ago. We saw her in the office and scheduled her for relatively urgent surgical intervention. The patient has been through conservative treatment. We discussed various treatment options including surgery, and the patient wishes to proceed with surgery We discussed the risk, patient's alternatives and benefits of surgery including but not limited to, risk of bleeding risk of infection, risk of need for further surgery, risk of decreased, loss of motion, muscle function, malunion nonunion, hardware failure, nerve damage, paralysis, heart attack, and . She understands that she has severe long-term changes which may be permanent and there is some possibility that surgery may not be of benefit for her. OPERATIVE SUMMARY After discussing all the risks, patient alternatives and benefits at length, the patient elected to proceed with surgical intervention, signed informed consent, and presented for their procedure. The patient was seen and examined in the preoperative holding area and the surgical site was marked. The patient was given antibiotics and brought to the operating room. The patient was positioned on the operating room table in a supine position being careful to pad any bony prominences and pressure points. The patient was sedated and intubated by anesthesia in standard fashion. Once the airway and C- spine were stabilized the patient's arms were padded and tucked at her side, with her shoulders gently taped. The head was placed in a donut pad with the neck in good neutral alignment and position. We were careful to maintain the patient's cervical spine and good neutral alignment and position throughout. The patient was prepped and draped in a normal standard fashion. An appropriate timeout and keystone protocol performed. We were able to proceed with the surgery. The local wound area was infiltrated with local anesthetic. An incision was made transversely approximately 2-1/2 cm over the appropriate levels at C5. Dissection was taken down subcutaneously to the level of the platysma which was split in line with its fibers. Dissection was taken with a carotid approach, with the trachea and esophagus medial and the carotid sheath laterally. We dissected down to the anterior surface of the vertebral bodies. I was able to expose the plate at C5 6 and 7 and the screw heads. As able to remove the screws as I felt the plate was going to be in the way of further surgery. The locking screws and screws were placed were removed and evaluated by to be in total I was able to mobilize the plate and remove the plate in total. As able to evaluate and explore the fusions. There is solid fusion at C6 7. There is some gapping at C5 6 but I tried to mobilize that 56 level and there was no evidence of any motion and I felt that it was stably fused. Intraoperative x-ray was taken which showed a marker at the appropriate level at the C45 disc. With the appropriate level positively confirmed, we were able to proceed with discectomy at the appropriate levels. All of the operative levels were exposed appropriately. The patient had all their twitches back, and there was no evidence of recurrent laryngeal issue. The wound was copiously irrigated and suctioned dry as had been done periodically throughout the case. At the appropriate level/levels, I established an annulotomy with an 11 blade scalpel. I started at C4 5 and then moved to C3 4. There is evidence of listhesis at C3 4. There is severe his protrusion and posterior osteophytic spurring which had a be taken down at both levels at C4 5 and C3 4. There was severe stenosis centrally and at the bilateral neural foramen which was remedied with the decompression. A discectomy was performed with a combination of pituitary rongeurs, curettes, a high-speed bur, and Kerr[place] rongeurs. The posterior longitudinal ligament was taken down as were any posterior osteophytes. This gave good central and bilateral foraminal decompression. There is no evidence of any dural tear or leak. The endplates were prepared with a high-speed bur. With the endplates in good parallel position, I was able to size for the appropr iate size interbody graft. The wound was irrigated and suctioned dry the graft was prepared and malleted into position. It had good alignment and position with the anterior surface flush with the anterior surface of the vertebral bodies. This was done similarly the appropriate levels first at C4 5 and then at C3 4. With the grafts intact, I was able to measure and contour and appropriate sized plate. The plate was positioned at the midline over the appropriate levels. I chose to span to see 56 disc as well. I placed the plate from C3 to C6. Screw holes were established with a hand drill and drill guide. Screws were placed in good alignment and position with excellent bony purchase. They were seated under the locking device. The construct was checked and found to be stable. Intraoperative x-ray was taken which showed good alignment and position of the implants at the appropriate levels. There was no evidence of any dural tear or leak. Good hemostasis was maintained. The wound was copiously irrigated and suctioned dry as had been done periodically throughout the case. The platysma was closed with absorbable suture. The subcutaneous tissue was closed. The subcuticular tissue was closed with absorbable suture. The wound was cleaned and dried and dressed appropriately. A soft cervical collar was placed appropriately. The patient was woken up by anesthesia, extubated, transferred back gently to their hospital bed and brought to the recovery room in good stable condition. The patient will be admitted to the hospital for appropriate postoperative care, medical management and monitoring. We will continue to follow them closely about the postoperative course.
[2020-02-21] MEDS: HYDROmorphone 0.5 MG/0.5 ML SYRINGE IVP PRN ×4 (14:26→22:31)
[2020-02-21 15:05] LABS: Glucose,Whole Blood 126 mg/dL (75-99)
[2020-02-21] MEDS: SODIUM CHLORIDE 0.9% 1,000 ML IV SCH (17:05)
[2020-02-21] MEDS ORDERED: LORazepam 2 MG/ML INJ IV PRN ×3 (17:30)
[2020-02-21] MEDS: CLINDAMYCIN 900 MG in DEXTROSE 5% IN WATER 50 ML IVPB SCH ×2 (17:33)
[2020-02-21 18:05] LABS: Glucose,Whole Blood 154 mg/dL (75-99)
[2020-02-21] MEDS: THIAMINE 100 MG TAB PO SCH (18:05)
[2020-02-21 19:28] LABS: African American GFR (CKD) >90 (>60 ml/min/1.73 sqM); Anion Gap 6 mmol/L; Blood Urea Nitrogen 8 mg/dL (7-17); Carbon Dioxide 27 mmol/L (22-30); Chloride 97 mmol/L (98-107); Glucose 155 mg/dL (74-99); Non-African American GFR(CKD) >90 (>60 ml/min/1.73 sqM); Potassium 4.1 mmol/L (3.5-5.1); Sodium 130 mmol/L (137-145)
[2020-02-21 20:09] LABS: Basophils % (A) 0 %; Eosinophils % (A) 0 %; HCT 41.9 % (34.0-46.0); HGB 14.3 gm/dL (11.4-16.0); Lymphocytes # (A) 0.4 k/uL (1.0-4.8); Lymphocytes % (A) 3 %; MCH 33.8 pg (25.0-35.0); MCHC 34.3 g/dL (31.0-37.0); MCV 98.7 fL (80.0-100.0); Mean Platelet Volume 7.2; Monocytes # (A) 0.1 k/uL (0-1.0); Monocytes % (A) 1 %; Neutrophils # (A) 12.1 k/uL (1.3-7.7); Neutrophils % (A) 96 %; Platelet Count 263 k/uL (150-450); RBC 4.24 m/uL (3.80-5.40); RDW 12.9 % (11.5-15.5); WBC 12.7 k/uL (3.8-10.6)
[2020-02-21] MEDS: BENZOCAINE/MENTHOL LOZENG 1 EACH LOZENGE MUCOUS MEM PRN (20:16)
[2020-02-21] MEDS: lisinopriL 5 MG TAB PO SCH (20:17)
[2020-02-21] MEDS: CIPROFLOXACIN HCL 500 MG TAB PO SCH (20:17)
[2020-02-21] MEDS: HYDROcodone/APAP 5-325MG 1 EACH TAB PO PRN (20:17)
[2020-02-21] MEDS: CYCLOBENZAPRINE 5 MG TAB PO SCH (20:18)
[2020-02-21 20:35] LABS: Glucose,Whole Blood 182 mg/dL (75-99)
--- NOTE | 2020-02-21 23:54 | P.CONS ---
History of Present Illness - Reason for Consult Consult date: 02/21/20 Medical Management - Chief Complaint Status post cervical decompression surgery - History of Present Illness Patient is a 59-year-old female with a known history of fibromyalgia, asthma, hypertension, osteoarthritis, diabetes type 2 [id number] and history of migraine headaches, IBS and currently everyday smoker, previous history of C5-6-7 cervical fusion surgery was admitted to hospital for anterior cervical decompression surgery. Patient has been having bilateral upper and lower extremity weakness and multiple falls recently and had MRI in December 2019 showed severe cervical stenosis at C3-4 and 5. Patient underwent removal of deep hardware C5-6-7, anterior cervical decompres shania and discectomy and application of anterior cervical plate C3-4-5 6.. Postoperatively 0. Postoperatively patient has been tachycardic. Denied any complaints of chest pain or shortness of breath. No complaints of cough or sputum production. Patient has been afebrile. Saturating at 2 L via nasal cannula. Laboratory data showed WBC 12.7, hemoglobin 14.3, neutrophils 12.1 and lymphocytes 0.4, sodium 130, potassium 4.1, chloride 91, BUN 8 and creatinine 0.44 TSH level is within normal limits at 0.493 Past Medical History Past Medical History: Asthma, Diabetes Mellitus, Fibromyalgia, Hypertension, Osteoarthritis (OA), Pneumonia Additional Past Medical History / Comment(s): DDD,numbness rt/lft fingers, 2010 renal failure and seizure when diabetes first diagnosed (2008). , hx migraines, environmental allergies, hx IBS. History of Any Multi-Drug Resistant Organisms: None Reported Past Surgical History: Appendectomy, Section, Hysterectomy, Orthopedic Surgery Additional Past Surgical History / Comment(s): disc surgery-plate and screws in neck, x2 (appendectomy during one of the ), ORIF rt ankle, FX LEFT EYE SOCKET AND lt eye POPPED OUT.repaired and placed back into socket, lipoma removed lt thigh Past Anesthesia/Blood Transfusion Reactions: No Reported Reaction Additional Past Anesthesia/Blood Transfusion Reaction / Comm: no complications with prior blood transfusion Smoking Status: Current every day smoker - Past Family History Father Family Medical History: Cancer Additional Family Medical History / Comment(s): pancreatic cancer Medications and Allergies Home Medications Medication Instructions Recorded Confirmed Type Ascorbic Acid [Vitamin C] 500 mg PO DAILY 07/03/19 02/21/20 History Atorvastatin [Lipitor] 10 mg PO DAILY 07/03/19 02/21/20 History Cholecalciferol [Vitamin D3 (25 2,000 unit PO DAILY 07/03/19 02/21/20 History Mcg = 1000 Iu)] Cyanocobalamin (Vitamin B-12) 2,500 mcg PO DAILY 07/03/19 02/21/20 History [Vitamin B-12] Vitamin E 400 unit PO DAILY 07/03/19 02/21/20 History lisinopriL [Zestril] 5 mg PO BID 07/03/19 02/21/20 History Cyclobenzaprine [Flexeril] 5 mg PO BID 11/22/19 02/21/20 History Fish Oil/Dha/Epa [Fish Oil 1,200 1 cap PO DAILY 11/22/19 02/21/20 History mg Fish Oil] amLODIPine [Norvasc] 5 mg PO DAILY #20 tab 11/22/19 02/21/20 Rx Calcium Carbonate [Calcium] 600 mg PO DAILY 01/28/20 02/21/20 History Fluticasone Nasal [place] [Flonase 1 spray EA NOSTRIL BID 01/28/20 02/21/20 History Nasal [place]] metFORMIN HCL [Glucophage] See Protocol PO DAILY PRN 01/28/20 02/21/20 History Ciprofloxacin HCl [Cipro] 500 mg PO Q12HR 02/19/20 02/21/20 History HYDROcodone/APAP 5-325MG [[place] 1 tab PO Q8H PRN 02/19/20 02/21/20 History 5-325] Allergies Allergy/AdvReac Type Severity Reaction Status Date / Time Penicillins AdvReac Nausea & Verified 02/21/20 09:37 Vomiting & Diarrhea Physical Exam Vitals: Vital Signs Temp Pulse Resp BP Pulse Ox 02/21/20 19:45 104 H 16 02/21/20 18:52 98.3 F 104 H 16 123/73 98 02/21/20 18:00 98.5 F 117 H 16 135/70 96 02/21/20 17:16 121 H 20 128/77 97 02/21/20 16:46 108 H 18 120/74 94 L 02/21/20 16:31 109 H 18 122/72 98 02/21/20 16:18 120 H 20 02/21/20 16:16 109 H 20 126/75 95 02/21/20 16:01 120 H 20 124/76 96 02/21/20 15:42 98.2 F 107 H 20 125/78 92 L 02/21/20 15:15 107 H 16 135/79 92 L 02/21/20 15:00 109 H 16 138/81 100 02/21/20 14:45 93 16 141/79 100 02/21/20 14:30 106 H 16 135/81 100 02/21/20 14:15 98.6 F 108 H 14 138/62 100 02/21/20 09:30 98.6 F 98 16 129/83 98 Intake and Output 02/21/20 02/21/20 02/22/20 14:59 22:59 06:59 Intake Total 2751 Output Total 860 600 Balance 1891 -600 Intake: IV 2751 Output: Urine 810 600 Estimated Blood Loss 50 Other: Voiding Method Indwelling Catheter Weight 52 kg PHYSICAL EXAMINATION: Patient is lying in the bed comfortably, no acute distress, awake alert and oriented.Malnourished.. HEENT: Normocephalic. Neck is supple. Pupils reactive. Nostrils clear. Oral cavity is moist. Ears reveal no drainage. Neck reveals .Patient does have neck brace.. CHEST EXAMINATION: Trachea is central. Symmetrical expansion. Lung art clear to auscultation and percussion. CARDIAC: Normal S1, S2 with no gallops. No murmurs ABDOMEN: Soft. Bowel sounds normal. No organomegaly. No abdominal bruits. Extremities: reveal no edema. No clubbing or cyanosis Neurologically awake, alert, oriented x3 with well-coordinated movements. No focal deficits noted Skin: No rash or skin lesions. Psychiatric: Coperative. Nonsuicidal, anxious Musculoskeletal: No joint swelling or deformity. Normal range of motion. Results CBC & Chem 7: 02/21/20 18:59 02/21/20 18:59 Labs: Abnormal Lab Results - Last 24 Hours (Table) 02/21/20 02/21/20 02/21/20 Range/Units 09:46 15:03 18:03 WBC (3.8-10.6) k/uL Neutrophils # (1.3-7.7) k/uL Lymphocytes # (1.0-4.8) k/uL Sodium (137-145) mmol/L Chloride (98-107) mmol/L Creatinine (0.52-1.04) mg/dL Glucose (74-99) mg/dL POC Glucose (mg/dL) 108 H 126 H 154 H (75-99) mg/dL 02/21/20 02/21/20 02/21/20 Range/Units 18:59 18:59 20:33 WBC 12.7 H (3.8-10.6) k/uL Neutrophils # 12.1 H (1.3-7.7) k/uL Lymphocytes # 0.4 L (1.0-4.8) k/uL Sodium 130 L (137-145) mmol/L Chloride 97 L (98-107) mmol/L Creatinine 0.44 L (0.52-1.04) mg/dL Glucose 155 H (74-99) mg/dL POC Glucose (mg/dL) 182 H (75-99) mg/dL Assessment and Plan Assessment: Status post C3-4-5 6 cervical fusion surgery and cervical decompression discectomy. Previous history of C5-6-7 cervical fusion surgery. Sinus tachycardia likely due to anxiety and pain. Hypovolemic hyponatremia Diabetes type 2 [id number] Hypertension Osteoarthritis of multiple joints Degenerative disc disease History of migraine headaches Irritable bowel syndrome Currently everyday smoker Hyperlipidemia Mild to moderate protein calorie malnutrition. DVT prophylaxis with SCDs Plan: Patient will be started on IV hydration and monitor heart rate. EKG will be obtained. TSH level is within normal limits. Continue with pain management and anxiolytics and follow-up closely. Patient states that she recently had stress test. Last stress echocardiogram and 2016 showed no inducible ischemia. Ejection fraction 60 to 65%. No significant valvular abnormalities noted. Encourage ambulation and incentive spirometry. Will follow with you closely and further recommendations based on the clinical course. Time with Patient: Greater than 30
[2020-02-22] MEDS: CLINDAMYCIN 900 MG in DEXTROSE 5% IN WATER 50 ML IVPB SCH ×2 (00:02)
[2020-02-22] MEDS: SODIUM CHLORIDE 0.9% 1,000 ML IV SCH ×2 (01:54→18:02)
[2020-02-22] MEDS: BENZOCAINE/MENTHOL LOZENG 1 EACH LOZENGE MUCOUS MEM PRN (02:11)
[2020-02-22 03:14] LABS: Hemoglobin A1C 5.5 % (4.0-6.0)
[2020-02-22] MEDS: HYDROmorphone 0.5 MG/0.5 ML SYRINGE IVP PRN ×3 (06:12→19:22)
[2020-02-22 07:17] LABS: Glucose,Whole Blood 102 mg/dL (75-99)
[2020-02-22] MEDS: THIAMINE 100 MG TAB PO SCH ×2 (07:17→16:44)
[2020-02-22] MEDS: ASCORBIC ACID 500 MG TAB PO SCH (07:17)
[2020-02-22] MEDS: ATORVASTATIN 10 MG TAB PO SCH (07:17)
[2020-02-22] MEDS: CYCLOBENZAPRINE 5 MG TAB PO SCH ×2 (07:17→19:21)
[2020-02-22] MEDS: CHOLECALCIFEROL 1,000 UNIT TAB PO SCH (07:17)
[2020-02-22] MEDS: SENNOSIDES-DOCUSATE SODIUM 1 EACH TAB PO SCH ×2 (07:17→07:23)
[2020-02-22] MEDS: CYANOCOBALAMIN 500 MCG TAB PO SCH (07:18)
[2020-02-22] MEDS: CIPROFLOXACIN HCL 500 MG TAB PO SCH ×2 (07:19→19:22)
[2020-02-22] MEDS: VITAMIN E (DL,TOCOPHERYL ACET) 400 UNIT CAP PO SCH (07:19)
[2020-02-22] MEDS: amLODIPine 5 MG TAB PO SCH (07:25)
[2020-02-22] MEDS: CALCIUM CARBONATE 500 MG CHEWABLE PO SCH (07:25)
[2020-02-22] MEDS: lisinopriL 5 MG TAB PO SCH ×2 (07:26→19:21)
[2020-02-22 07:29] LABS: Basophils % (A) 0 %; Eosinophils # (A) 0.1 k/uL (0-0.7); Eosinophils % (A) 1 %; HGB 12.5 gm/dL (11.4-16.0); Lymphocytes # (A) 1.3 k/uL (1.0-4.8); Lymphocytes % (A) 16 %; MCH 33.6 pg (25.0-35.0); MCHC 33.9 g/dL (31.0-37.0); MCV 99.3 fL (80.0-100.0); Monocytes # (A) 0.6 k/uL (0-1.0); Monocytes % (A) 8 %; Neutrophils % (A) 75 %; Platelet Count 239 k/uL (150-450); RBC 3.73 m/uL (3.80-5.40); RDW 13.1 % (11.5-15.5); WBC 8.1 k/uL (3.8-10.6)
[2020-02-22] MEDS: HYDROcodone/APAP 5-325MG 1 EACH TAB PO PRN ×3 (08:52→21:53)
[2020-02-22] MEDS ORDERED: NON FORMULARY DRUG (Fish Oil/Dha/Epa [Fish Oil 1,200 Mg Fish Oil] 1 EACH Capsule) PO SCH (09:00)
--- NOTE | 2020-02-22 10:47 | P.PN ---
Progress Note - Text Progress Note Date: 02/22/20 Postoperative day #1 Patient is seen and examined today at bedside. The patient has some pain around the surgical site as expected. Pain is being controlled with medication. The patient has very little ability to care for herself. She has some motion at her left arm and very limited motion in her right arm. With her couple of water just 18 inches away from her she is unable to access it. She is unable to mobilize by herself in bed or get up to the bathroom on her own. She has significant weakness at her lower extremities. Postoperatively for her cervical spine she says she has some soreness at her neck particular when she swallows but she is able to swallow fluids well and feel this that she can have some diet. Physical Exam Afebrile with stable vital signs Abdomen is soft nontender. Chest has good excursion deep and space expiration The incision site is clean dry and intact. No erythema there is no purulence. Her neck is soft and supple. There is no secure and swelling. Extremities have not had neurologic change from prior to surgery. She has severe weakness at her bilateral upper and lower extremities with evidence of severe myelopathy and upper motor neuron signs Calves and thighs were soft nontender without evidence of DVT. Assessment/Plan Postoperative day #1 status post anterior cervical decompression and fusion C3 4 C4 5 with removal of prior anterior cervical plate C3 5 6 and 7 for her severe cervical myelopathy with cervical stenosis and myelomalacia Bilateral upper and lower extremity weakness Inability to ambulate Patient is progressing as expected from the surgery in terms of her pain. The patient has severe debility's been going on for the past several months and symptoms at his reach out for the past several years. She has not been able to walk over the past several months. Her boyfriend has been helping her at home with essentially everything including feeding and hygiene. Though his efforts have been abnormal ball and she is quite determined, I think that she has the best potential for improvement with assisted or rehab to help maximize her potential function at her upper and lower extremities postoperatively. It is difficult to predict how much improvement she may have given her long-term neurologic injury and damage. We were able to open up significance space for her spinal cord and has some potential for healing. I discussed the possibility of assisted versus rehab with her and she will consider this option and she understands how severe and poor her function is from a neurologic standpoint. This will be somewhat difficult as the patient has some history of compliance issues in the past I would like to have rehab see as well as social work and case management for appropriate planning We will continue to increase the patient's mobilization with therapy. We will continue pain control with oral or IV medications. We'll continue to follow patient closely.
[2020-02-22 11:38] LABS: Glucose,Whole Blood 118 mg/dL (75-99)
[2020-02-22 12:11] LABS: African American GFR (CKD) 121.9 (60.0-200.0); Anion Gap 5.8 mmol/L (4.00-12.00); Calcium 8.7 mg/dL (8.7-10.3); Carbon Dioxide 25.2 mmol/L (21.6-31.8); Non-African American GFR(CKD) 105.2 (60.0-200.0); Potassium 4.2 mmol/L (3.5-5.5)
--- NOTE | 2020-02-22 12:43 | P.CONS ---
History of Present Illness - Chief Complaint Gait disturbance - History of Present Illness I had the opportunity to see patient for inpatient rehab consultation with regard to gait disturbance due to cervical myelopathy. Patient reports over the last few to several weeks she is falling frequently. Known cervical disc disease and history of previous C-spine surgery 1. Admitted for underwent elective fusion C5-7, Dr. Lay. Seen medically by Dr. Bolton. I have added PT and OT at this time. Previous functional history as elicited from patient: 59-year-old right-handed white female who is lives in a first-floor return floor farmhouse with her significant other. Patient on disability due to cervical DDD. Significant other retired. Significant other has been doing the cooking laundry and driving for the last 2 and half months and physically assisting patient with dressing and bathing for the last month and a half. Previously independent with tub bath and rare need of standard cane when right ankle bothered her. PCP Dr. Iraheta. Patient reports that she rolls her own cigarettes and has perhaps 9 beers per week. Family history mother with MS. Review of Systems Review of systems: ENT: Denies sneezes or discharge. Eyes: Denies discharge or photophobia. Cardiac: Denies chest pain or palpitation. Pulmonary: Denies cough or shortness of breath. Breast: Denies discharge or lumps. Gastrointestinal: Denies nausea, emesis, constipation, diarrhea. Genitourinary: Denies discharge or frequency. Musculoskeletal: Denies muscle or bone aches. Cervical spine discomfort. Neurologic: At least mild generalized weakness and ataxia. Endocrine: Denies shakes or sweats. Oncology: Denies cancers. Dermatologic: Denies rash, itching, pruritus. ALLERGY/immunology: Denies sneezes, rashes. Past Medical History Past Medical History: Asthma, Diabetes Mellitus, Fibromyalgia, Hypertension, Osteoarthritis (OA), Pneumonia Additional Past Medical History / Comment(s): DDD,numbness rt/lft fingers, 2010 renal failure and seizure when diabetes first diagnosed (2008). , hx migraines, environmental allergies, hx IBS. History of Any Multi-Drug Resistant Organisms: None Reported Past Surgical History: Appendectomy, Section, Hysterectomy, Orthopedic Surgery Additional Past Surgical History / Comment(s): disc surgery-plate and screws in neck, x2 (appendectomy during one of the ), ORIF rt ankle, FX LEFT EYE SOCKET AND lt eye POPPED OUT.repaired and placed back into socket, lipoma removed lt thigh Past Anesthesia/Blood Transfusion Reactions: No Reported Reaction Additional Past Anesthesia/Blood Transfusion Reaction / Comm: no complications with prior blood transfusion Smoking Status: Current every day smoker - Past Family History Father Family Medical History: Cancer Additional Family Medical History / Comment(s): pancreatic cancer Medications and Allergies Home Medications Medication Instructions Recorded Confirmed Type Ascorbic Acid [Vitamin C] 500 mg PO DAILY 07/03/19 02/21/20 History Atorvastatin [Lipitor] 10 mg PO DAILY 07/03/19 02/21/20 History Cholecalciferol [Vitamin D3 (25 2,000 unit PO DAILY 07/03/19 02/21/20 History Mcg = 1000 Iu)] Cyanocobalamin (Vitamin B-12) 2,500 mcg PO DAILY 07/03/19 02/21/20 History [Vitamin B-12] Vitamin E 400 unit PO DAILY 07/03/19 02/21/20 History lisinopriL [Zestril] 5 mg PO BID 07/03/19 02/21/20 History Cyclobenzaprine [Flexeril] 5 mg PO BID 11/22/19 02/21/20 History Fish Oil/Dha/Epa [Fish Oil 1,200 1 cap PO DAILY 11/22/19 02/21/20 History mg Fish Oil] amLODIPine [Norvasc] 5 mg PO DAILY #20 tab 11/22/19 02/21/20 Rx Calcium Carbonate [Calcium] 600 mg PO DAILY 01/28/20 02/21/20 History Fluticasone Nasal [place] [Flonase 1 spray EA NOSTRIL BID 01/28/20 02/21/20 History Nasal [place]] metFORMIN HCL [Glucophage] See Protocol PO DAILY PRN 01/28/20 02/21/20 History Ciprofloxacin HCl [Cipro] 500 mg PO Q12HR 02/19/20 02/21/20 History HYDROcodone/APAP 5-325MG [[place] 1 tab PO Q8H PRN 02/19/20 02/21/20 History 5-325] Allergies Allergy/AdvReac Type Severity Reaction Status Date / Time Penicillins AdvReac Nausea & Verified 02/21/20 09:37 Vomiting & Diarrhea Physical Exam Vitals: Vital Signs Temp Pulse Resp BP Pulse Ox 12/17/20 07:15 92 02/22/20 07:00 98.4 F 88 20 106/64 97 02/22/20 01:41 98.4 F 92 14 98/61 100 02/21/20 19:45 104 H 16 02/21/20 18:52 98.3 F 104 H 16 123/73 98 02/21/20 18:00 98.5 F 117 H 16 135/70 96 02/21/20 17:16 121 H 20 128/77 97 02/21/20 16:46 108 H 18 120/74 94 L 02/21/20 16:31 109 H 18 122/72 98 02/21/20 16:18 120 H 20 02/21/20 16:16 109 H 20 126/75 95 02/21/20 16:01 120 H 20 124/76 96 02/21/20 15:42 98.2 F 107 H 20 125/78 92 L 02/21/20 15:15 107 H 16 135/79 92 L 02/21/20 15:00 109 H 16 138/81 100 02/21/20 14:45 93 16 141/79 100 02/21/20 14:30 106 H 16 135/81 100 02/21/20 14:15 98.6 F 108 H 14 138/62 100 Intake and Output 02/21/20 02/22/20 02/22/20 22:59 06:59 14:59 Intake Total 1100 Output Total 600 2900 Balance -600 -1800 Intake: Intake, IV Titration 900 Amount Sodium Chloride 0.9% 1, 900 000 ml @ 75 mls/hr IV . [id number] [facility] Rx#:[id number] Oral 200 Output: Urine 600 2900 Other: Voiding Method Indwelling Catheter Skin: Good color, texture, turgor. General: Medium build and comfortable appearance. Head: Normocephalic, atraumatic. Eyes: Symmetric. Pupils equal round. Ears: Symmetric. Hearing within normal limits. Mouth: Clear. Neck: [place] collar. Cardiac: Regular rate and rhythm. Lungs: Clear anteriorly and posteriorly. Abdomen: Soft active nontender. Extremities: Normal tone. Limitations shoulders right more so than left. Neurological: Mental status: Alert, cooperative, pleasant. Cranial nerves: Symmetric facial tone and trapezius. Motor: Normal strength and isolation all 4 limbs but quit at least mild generalized weakness perhaps more so on right. Sensation: Intact throughout. DTRs: Symmetric and equal throughout. Mobility: Did not attempt to sit or stand at this time. Results CBC & Chem 7: 02/22/20 07:00 02/22/20 07:00 Labs: Abnormal Lab Results - Last 24 Hours (Table) 02/21/20 02/21/20 02/21/20 Range/Units 15:03 18:03 18:59 WBC (3.8-10.6) k/uL RBC (3.80-5.40) m/uL Neutrophils # (1.3-7.7) k/uL Lymphocytes # (1.0-4.8) k/uL Sodium 130 L (137-145) mmol/L Chloride 97 L (98-107) mmol/L BUN (9.0-27.0) mg/dL Creatinine 0.44 L (0.52-1.04) mg/dL Glucose 155 H (74-99) mg/dL POC Glucose (mg/dL) 126 H 154 H (75-99) mg/dL 02/21/20 02/21/20 02/22/20 Range/Units 18:59 20:33 07:00 WBC 12.7 H (3.8-10.6) k/uL RBC (3.80-5.40) m/uL Neutrophils # 12.1 H (1.3-7.7) k/uL Lymphocytes # 0.4 L (1.0-4.8) k/uL Sodium 132 L (137-145) mmol/L Chloride (98-107) mmol/L BUN 8.0 L (9.0-27.0) mg/dL Creatinine 0.5 L (0.52-1.04) mg/dL Glucose (74-99) mg/dL POC Glucose (mg/dL) 182 H (75-99) mg/dL 02/22/20 02/22/20 02/22/20 Range/Units 07:00 07:13 11:37 WBC (3.8-10.6) k/uL RBC 3.73 L (3.80-5.40) m/uL Neutrophils # (1.3-7.7) k/uL Lymphocytes # (1.0-4.8) k/uL Sodium (137-145) mmol/L Chloride (98-107) mmol/L BUN (9.0-27.0) mg/dL Creatinine (0.52-1.04) mg/dL Glucose (74-99) mg/dL POC Glucose (mg/dL) 102 H 118 H (75-99) mg/dL Assessment and Plan (1) Cervical stenosis of spinal canal Current Visit: Yes Status: Acute Code(s): M48.02 - SPINAL STENOSIS, CERVICAL REGION SNOMED Code(s): 87583032 Plan: Impression: 1. Gait disturbance due to cervical spinal stenosis with myelopathy status post decompression and fusion C5-7. 2. Hypertension. 3. Diabetes. 4. Fibromyalgia. 5. Asthma. 6. Osteoarthritis. Comments and plan: Patient just had surgery yesterday. I have prescribed PT and OT at this time. I have discussed possible inpatient rehab with patient. She has voiced that she prefers to go home with supportive significant other. At this time I would anticipate problems with that and would of course require support in this decision of her significant other.
[2020-02-22 15:33] VITALS: BMI 18.5
[2020-02-22 17:15] LABS: Glucose,Whole Blood 109 mg/dL (75-99)
[2020-02-22 20:28] LABS: Glucose,Whole Blood 109 mg/dL (75-99)
[2020-02-23] MEDS: BENZOCAINE/MENTHOL LOZENG 1 EACH LOZENGE MUCOUS MEM PRN (02:23)
[2020-02-23] MEDS: HYDROmorphone 0.5 MG/0.5 ML SYRINGE IVP PRN ×3 (02:23→17:44)
[2020-02-23] MEDS: HYDROcodone/APAP 5-325MG 1 EACH TAB PO PRN ×2 (05:45→12:47)
[2020-02-23 06:52] LABS: Glucose,Whole Blood 105 mg/dL (75-99)
[2020-02-23] MEDS: ASCORBIC ACID 500 MG TAB PO SCH (07:26)
[2020-02-23] MEDS: CYCLOBENZAPRINE 5 MG TAB PO SCH ×2 (07:26→20:24)
[2020-02-23] MEDS: CYANOCOBALAMIN 500 MCG TAB PO SCH (07:26)
[2020-02-23] MEDS: lisinopriL 5 MG TAB PO SCH ×2 (07:26→20:24)
[2020-02-23] MEDS: VITAMIN E (DL,TOCOPHERYL ACET) 400 UNIT CAP PO SCH (07:27)
[2020-02-23] MEDS: CALCIUM CARBONATE 500 MG CHEWABLE PO SCH (07:27)
[2020-02-23] MEDS: CHOLECALCIFEROL 1,000 UNIT TAB PO SCH (07:27)
[2020-02-23] MEDS: amLODIPine 5 MG TAB PO SCH (07:27)
[2020-02-23] MEDS: THIAMINE 100 MG TAB PO SCH ×2 (07:27→17:44)
[2020-02-23] MEDS: ATORVASTATIN 10 MG TAB PO SCH (07:32)
--- NOTE | 2020-02-23 08:51 | P.PN ---
Progress Note - Text Progress Note Date: 02/23/20 Orthopedic Spine: History of present illness: Patient is a pleasant 59-year-old female who is seen at the bedside following anterior cervical decompression and fusion performed Wednesday. Patient states they are doing well postsurgically. Her pain has been medically controlled. She does have significant myelopathy. She has been unable to ambulate over the past several months. She also has significant difficulty with function of the hands bilaterally worse on the right than the left. These symptoms have been ongoing and hasn't been worsening prior to surgical intervention. She was seen and examined yesterday by Dr. Young to discuss possible placement for inpatient rehab at the time of discharge. Currently does not complain of nausea, vomiting, fever, or chills. Her Martinez catheter remains intact and she has significant difficulty with any mobilization to the restroom and has urinary frequency. Physical Exam Cervical Fusion: Status post surgical day number 2 Patient is awake, alert, and oriented 3 Vital signs stable Good chest excursion with deep inspiration and expiration Incision over the cervical spine is clean, dry, intact with no active drainage no sign of infection No pain on palpation of the surgical site One small bruise over the right side of the upper sternum Significant atrophy and myelopathic changes of the hands bilaterally Patient has difficulty performing active range of motion bilateral upper extremity; significant difficulty with picking up a cup with both hands together at the bedside Multiple nicotine stains on the fingers Patient is wearing soft cervical collar Assessment: Status post C3-4 and C4-5 anterior cervical decompression and fusion with removal of hardware at C5-6 and C6-7 Severe cervical stenosis Cervical myelomalacia Cervical myelopathy Bilateral upper extremity weakness Bilateral lower extremity weakness Inability to ambulate Type 2 diabetes Current daily tobacco user Plan: 1. Ambulate as tolerated; work with Physical Therapy to increase mobilization 2. Continue pain control with oral and IV medications as needed; wean off IV medications in anticipation for discharge 3. Patient may shower with Tegaderm dressing; patient may remove Optifoam in 3 days and shower without a dressing at that time 4. Medical management can continue to manage patient for patient's other medical issues 5. We will continue to follow the patient closely; given the patient's significant upper extremity and lower extremity bilateral weakness, cervical myelopathy, and difficulty with regular activities of daily living including feeding herself and hygiene, we strongly recommend her being discharged to a rehabilitation facility. Depending on her progress, we can plan for this is early as tomorrow, 02/24/2020. 6. Patient can follow-up with Malik Cabello PA-C or Dr. Jay Lay at [facility] in 2-3 weeks following discharge
[2020-02-23] MEDS: SODIUM CHLORIDE 0.9% 1,000 ML IV SCH (11:02)
[2020-02-23 11:17] LABS: Glucose,Whole Blood 105 mg/dL (75-99)
--- NOTE | 2020-02-23 11:39 | P.PN ---
Subjective Progress Note Date: 02/22/20 Principal diagnosis: Status post C3-4-5 6 cervical fusion surgery and cervical decompression discectomy. Patient is a 59-year-old female with a known history of fibromyalgia, asthma, hypertension, osteoarthritis, diabetes type 2 [id number] and history of migraine headaches, IBS and currently everyday smoker, previous history of C5-6-7 cervical fusion surgery was admitted to hospital for anterior cervical decompression surgery. Patient has been having bilateral upper and lower extremity weakness and multiple falls recently and had MRI in December 2019 showed severe cervical stenosis at C3-4 and 5. Patient underwent removal of deep hardware C5-6-7, anterior cervical decompression and discectomy and application of anterior cervical plate C3-4-5 6.. Postoperatively 0. Postoperatively patient has been tachycardic. Denied any complaints of chest pain or shortness of breath. No complaints of cough or sputum production. Patient has been afebrile. Saturating at 2 L via nasal cannula. Laboratory data showed WBC 12.7, hemoglobin 14.3, neutrophils 12.1 and ly mphocytes 0.4, sodium 130, potassium 4.1, chloride 91, BUN 8 and creatinine 0.44 TSH level is within normal limits at 0.493 02/22/2020 Patient is currently resting in the bed comfortably. No complaints of chest pain or shortness of breath.. Tachycardia isimproving. Patient is tolerating oral diet. Still complaining of neck pain but improved compared to yesterday. No complaints of fever or chills. Current medications reviewed. Objective - Vital Signs Vital signs: Vital Signs Temp 98.4 F 02/22/20 07:00 Pulse 92 02/22/20 07:15 Resp 20 02/22/20 07:00 BP 106/64 02/22/20 07:00 Pulse Ox 97 02/22/20 07:00 Intake & Output 02/21/20 02/22/20 02/22/20 18:59 06:59 18:59 Intake Total 2751 1100 Output Total 1460 2900 Balance 1291 -1800 Weight 52 kg Intake: IV 2751 Intake, IV Titration 900 Amount Sodium Chloride 0.9% 1, 900 000 ml @ 75 mls/hr IV . [id number] [facility] Rx#:[id number] Oral 200 Output: Urine 1410 2900 Estimated Blood Loss 50 Other: Voiding Method Indwelling Catheter Indwelling Catheter - Exam PHYSICAL EXAMINATION: Patient is lying in the bed comfortably, no acute distress, awake alert and oriented.Malnourished.. HEENT: Normocephalic. Neck is supple. Pupils reactive. Nostrils clear. Oral cavity is moist. Ears reveal no drainage. Neck reveals .Patient does have neck brace.. CHEST EXAMINATION: Trachea is central. Symmetrical expansion. Lung art clear to auscultation and percussion. CARDIAC: Normal S1, S2 with no gallops. No murmurs ABDOMEN: Soft. Bowel sounds normal. No organomegaly. No abdominal bruits. Extremities: reveal no edema. No clubbing or cyanosis Neurologically awake, alert, oriented x3 with well-coordinated movements. No focal deficits noted Skin: No rash or skin lesions. Psychiatric: Coperative. Nonsuicidal, anxious Musculoskeletal: No joint swelling or deformity. Normal range of motion. - Labs CBC & Chem 7: 02/22/20 07:00 02/22/20 07:00 Labs: Abnormal Lab Results - Last 24 Hours (Table) 02/21/20 02/21/20 02/21/20 Range/Units 15:03 18:03 18:59 WBC (3.8-10.6) k/uL RBC (3.80-5.40) m/uL Neutrophils # (1.3-7.7) k/uL Lymphocytes # (1.0-4.8) k/uL Sodium 130 L (137-145) mmol/L Chloride 97 L (98-107) mmol/L Creatinine 0.44 L (0.52-1.04) mg/dL Glucose 155 H (74-99) mg/dL POC Glucose (mg/dL) 126 H 154 H (75-99) mg/dL 02/21/20 02/21/20 02/22/20 Range/Units 18:59 20:33 07:00 WBC 12.7 H (3.8-10.6) k/uL RBC 3.73 L (3.80-5.40) m/uL Neutrophils # 12.1 H (1.3-7.7) k/uL Lymphocytes # 0.4 L (1.0-4.8) k/uL Sodium (137-145) mmol/L Chloride (98-107) mmol/L Creatinine (0.52-1.04) mg/dL Glucose (74-99) mg/dL POC Glucose (mg/dL) 182 H (75-99) mg/dL 02/22/20 02/22/20 Range/Units 07:13 11:37 WBC (3.8-10.6) k/uL RBC (3.80-5.40) m/uL Neutrophils # (1.3-7.7) k/uL Lymphocytes # (1.0-4.8) k/uL Sodium (137-145) mmol/L Chloride (98-107) mmol/L Creatinine (0.52-1.04) mg/dL Glucose (74-99) mg/dL POC Glucose (mg/dL) 102 H 118 H (75-99) mg/dL Assessment and Plan Assessment: Status post C3-4-5 6 cervical fusion surgery and cervical decompression discectomy. Previous history of C5-6-7 cervical fusion surgery. Sinus tachycardia likely due to anxiety and pain. Hypovolemic hyponatremia Diabetes type 2 [id number] Hypertension Osteoarthritis of multiple joints Degenerative disc disease History of migraine headaches Irritable bowel syndrome Currently everyday smoker Hyperlipidemia Mild to moderate protein calorie malnutrition. DVT prophylaxis with SCDs Plan: Patient will be continued on IV hydration and monitor heart rate. EKG will be obtained. TSH level is within normal limits. Continue with pain management and anxiolytics and follow-up closely. Patient states that she recently had stress test. Last stress echocardiogram and 2016 showed no inducible ischemia. Ejection fraction 60 to 65%. No significant valvular abnormalities noted. Encourage ambulation and incentive spirometry. Will follow with you closely and further recommendations based on the clinical course.
[2020-02-23 16:34] LABS: Glucose,Whole Blood 101 mg/dL (75-99)
[2020-02-23 20:57] LABS: Glucose,Whole Blood 149 mg/dL (75-99)
[2020-02-24] MEDS: CALCIUM CARBONATE 500 MG CHEWABLE PO SCH (07:29)
[2020-02-24] MEDS: CYANOCOBALAMIN 500 MCG TAB PO SCH (07:29)
[2020-02-24] MEDS: CHOLECALCIFEROL 1,000 UNIT TAB PO SCH (07:30)
[2020-02-24] MEDS: lisinopriL 5 MG TAB PO SCH ×2 (07:30→20:35)
[2020-02-24] MEDS: THIAMINE 100 MG TAB PO SCH ×2 (07:30→17:03)
[2020-02-24] MEDS: ATORVASTATIN 10 MG TAB PO SCH (07:30)
[2020-02-24] MEDS: ASCORBIC ACID 500 MG TAB PO SCH (07:30)
[2020-02-24] MEDS: amLODIPine 5 MG TAB PO SCH (07:30)
[2020-02-24] MEDS: CYCLOBENZAPRINE 5 MG TAB PO SCH ×2 (07:30→20:35)
[2020-02-24] MEDS: SENNOSIDES-DOCUSATE SODIUM 1 EACH TAB PO SCH (07:30)
[2020-02-24] MEDS: HYDROmorphone 0.5 MG/0.5 ML SYRINGE IVP PRN ×2 (07:31→23:01)
[2020-02-24 07:44] LABS: Glucose,Whole Blood 112 mg/dL (75-99)
[2020-02-24] MEDS: VITAMIN E (DL,TOCOPHERYL ACET) 400 UNIT CAP PO SCH (09:53)
--- NOTE | 2020-02-24 10:11 | P.PN ---
Progress Note - Text Progress Note Date: 02/24/20 Postoperative day #3 Patient is seen and examined today at bedside. The patient is not having any significant complaints of pain at this point, Pain is being controlled with medication. She was helped to get up and if to a chair and she is still insisting on being discharged home rather than going to longterm or rehab. She has been offered rehab with the physical medicine rehab physician. Physical Exam Afebrile with stable vital signs Abdomen is soft nontender. Chest has good excursion deep and space expiration The incision site is clean dry and intact. No erythema there is no purulence.Her neck is soft and supple. This is secured and swelling Extremities have not had neurologic change from prior to surgery.She has extremely minimal use of her upper extremities. There is some mild use of her left upper extremity though she is not able to adequately hold tools or feed herself due to limited use of her hands. She swallowing appropriately. She is not able to stand up or mobilize on her own Calves and thighs were soft nontender without evidence of DVT. Assessment/Plan Postoperative day #3 status post anterior cervical decompression with discectomy and fusion C3 4 C4 5 with we will her prior hardware C5 5 6 7 severe cervical myelopathy with limited use of her upper and lower extremities The patient has severe neurologic deficits. Her surgery was rather uneventful and she seems to be progressing from the surgical site appropriately. However she is not making significant gains with her neurologic status. We would not expect her to have acute increase in her neurologic function. I have had a number of long discussions with her regarding her neurologic function and her needs. She has been at home over the past several months with severe debility. Her partner has been feeding her and taking care of her hygiene and essentially lifting her toes move her into the house and from one place to another. She is not doing any mobilization on her own. I tried to explain to her that she needs significant help in order to try to maximize her benefit from her procedure and her overall neurologic status. I think that inpatient rehab would offer her the chance to learn techniques to try to maximize her function and to provide her the most safety and appropriate hygiene. I think that she is certainly safer with placement post hospitalization rather than being at home. Despite this she is quite insistent on being at home. She will continue the consider her options for now and she is continuing think about her placement post hospital position. She still has her indwelling Martinez and she does not feel comfortable having it out as she wets the bed quite regularly without a Martinez. We'll cubital tomorrow to see if she is able to manage however she may need an external Martinez as well. Physical medicine and rehab, case management, social work has all been working with her as well to try to make appropriate arrangements post discharge. We will continue to increase the patient's mobilization with therapy andoccupational therapy as able. We will continue pain control with oral or IV medications. We'll continue to follow patient closely.
[2020-02-24 11:42] LABS: Glucose,Whole Blood 107 mg/dL (75-99)
[2020-02-24] MEDS: HYDROcodone/APAP 5-325MG 1 EACH TAB PO PRN ×2 (15:34→20:35)
[2020-02-24] MEDS: BENZOCAINE/MENTHOL LOZENG 1 EACH LOZENGE MUCOUS MEM PRN ×2 (17:03→22:15)
[2020-02-24 17:23] LABS: Glucose,Whole Blood 102 mg/dL (75-99)
[2020-02-24 20:45] LABS: Glucose,Whole Blood 111 mg/dL (75-99)
[2020-02-25] MEDS: HYDROcodone/APAP 5-325MG 1 EACH TAB PO PRN ×4 (04:43→22:26)
[2020-02-25 06:57] LABS: Glucose,Whole Blood 111 mg/dL (75-99)
[2020-02-25] MEDS: SENNOSIDES-DOCUSATE SODIUM 1 EACH TAB PO SCH (09:31)
[2020-02-25] MEDS: CHOLECALCIFEROL 1,000 UNIT TAB PO SCH (09:31)
[2020-02-25] MEDS: CYANOCOBALAMIN 500 MCG TAB PO SCH (09:31)
[2020-02-25] MEDS: VITAMIN E (DL,TOCOPHERYL ACET) 400 UNIT CAP PO SCH (09:31)
[2020-02-25] MEDS: CYCLOBENZAPRINE 5 MG TAB PO SCH ×2 (09:31→20:44)
[2020-02-25] MEDS: lisinopriL 5 MG TAB PO SCH ×2 (09:31→20:44)
[2020-02-25] MEDS: ASCORBIC ACID 500 MG TAB PO SCH (09:31)
[2020-02-25] MEDS: ATORVASTATIN 10 MG TAB PO SCH (09:32)
[2020-02-25] MEDS: amLODIPine 5 MG TAB PO SCH (09:32)
[2020-02-25] MEDS: THIAMINE 100 MG TAB PO SCH ×2 (09:32→18:01)
[2020-02-25] MEDS: CALCIUM CARBONATE 500 MG CHEWABLE PO SCH (09:32)
--- NOTE | 2020-02-25 09:34 | P.PN ---
Subjective Progress Note Date: 02/25/20 Principal diagnosis: Postop cervical fusion. Severe cervical myelopathy. This is a 59-year-old female who is postoperative day #4, status post anterior cervical fusion with decompression and discectomy C3 4, C4 5. Patient is seen and examined today at bedside. The patient is not having any significant complaints of pain at this point, Pain is being controlled with medication. She was helped to get up and if to a chair and she is now considering possible discharge to acute rehab versus home. Objective - Vital Signs Vital signs: Vital Signs Temp 97.5 F L 02/25/20 07:29 Pulse 85 02/25/20 07:29 Resp 18 02/25/20 07:29 BP 129/85 02/25/20 07:29 Pulse Ox 95 02/25/20 07:29 Intake & Output 02/24/20 02/25/20 02/25/20 18:59 06:59 18:59 Output Total 1500 Balance -1500 Output: Urine 1500 Other: Voiding Method Indwelling Catheter Indwelling Catheter - Exam This is a pleasant 59-year-old female in no acute distress. She is alert and oriented 3. Her cervical collar is in place. She has some ecchymosis to the upper anterior chest. No active drainage from the incision. She continues to have significant limitations in movement of her upper and lower extremities. She is lacking fine motor function bilaterally. No new findings on exam today. - Labs CBC & Chem 7: 02/22/20 07:00 02/22/20 07:00 Labs: Abnormal Lab Results - Last 24 Hours (Table) 02/24/20 02/24/20 02/24/20 Range/Units 11:32 17:20 20:44 POC Glucose (mg/dL) 107 H 102 H 111 H (75-99) mg/dL 02/25/20 Range/Units 06:56 POC Glucose (mg/dL) 111 H (75-99) mg/dL Assessment and Plan (1) Cervical myelopathy Current Visit: Yes Status: Acute Code(s): G95.9 - DISEASE OF SPINAL CORD, UNSPECIFIED SNOMED Code(s): 733768298 (2) Status post cervical spinal fusion Current Visit: Yes Status: Acute Code(s): Z98.1 - ARTHRODESIS STATUS SNOMED Code(s): 5908512904549 (3) Cervical stenosis of spinal canal Current Visit: Yes Status: Acute Code(s): M48.02 - SPINAL STENOSIS, CERVICAL REGION SNOMED Code(s): 78085290 Plan: The clinical findings are discussed with the patient and her nurse. We again had a long discussion regarding rehab. The patient is now considering possible discharge to acute rehab tomorrow. We'll continue to follow and answer any questions she has regarding rehab.
[2020-02-25] MEDS: HYDROmorphone 0.5 MG/0.5 ML SYRINGE IVP PRN (09:39)
[2020-02-25 12:17] LABS: Glucose,Whole Blood 104 mg/dL (75-99)
[2020-02-25] MEDS ORDERED: metFORMIN 500 MG TAB PO PRN (14:07)
[2020-02-25 17:27] LABS: Glucose,Whole Blood 96 mg/dL (75-99)
[2020-02-25 20:30] LABS: Glucose,Whole Blood 113 mg/dL (75-99)
--- NOTE | 2020-02-25 22:51 | P.PN ---
Subjective Progress Note Date: 02/23/20 Principal diagnosis: Status post C3-4-5 6 cervical fusion surgery and cervical decompression discectomy. Patient is a 59-year-old female with a known history of fibromyalgia, asthma, hypertension, osteoarthritis, diabetes type 2 [id number]-aubwkuork and history of migraine headaches, IBS and currently everyday smoker, previous history of C5-6-7 cervical fusion surgery was admitted to hospital for anterior cervical decompression surgery. Patient has been having bilateral upper and lower extremity weakness and multiple falls recently and had MRI in December 2019 showed severe cervical stenosis at C3-4 and 5. Patient underwent removal of deep hardware C5-6-7, anterior cervical decompression and discectomy and application of anterior cervical plate C3-4-5 6.. Postoperatively 0. Postoperatively patient has been tachycardic. Denied any complaints of chest pain or shortness of breath. No complaints of cough or sputum production. Patient has been afebrile. Saturating at 2 L via nasal cannula. Laboratory data showed WBC 12.7, hemoglobin 14.3, neutrophils 12.1 and ly mphocytes 0.4, sodium 130, potassium 4.1, chloride 91, BUN 8 and creatinine 0.44 TSH level is within normal limits at 0.493 02/22/2020 Patient is currently resting in the bed comfortably. No complaints of chest pain or shortness of breath.. Tachycardia isimproving. Patient is tolerating oral diet. Still complaining of neck pain but improved compared to yesterday. No complaints of fever or chills. 02/23/2020 Patient is currently sitting in the chair comfortably. Denied any complaints of chest pain or shortness of breath. Bilateral upper extremity strength is improving slightly. No complaints of numbness or tingling. Still complains of neck pain and is getting pain medications. No fever no chills. Participating in PT OT. No tachycardia. Current medications reviewed. Objective - Vital Signs Vital signs: Vital Signs Temp 98.3 F 02/23/20 07:06 Pulse 80 02/23/20 07:06 Resp 20 02/23/20 07:06 BP 113/70 02/23/20 07:06 Pulse Ox 100 02/23/20 07:06 Intake & Output 02/22/20 02/23/20 02/23/20 18:59 06:59 18:59 Intake Total 800 1400 Output Total 1300 3800 Balance -500 -2400 Weight 52 kg Intake: Intake, IV Titration 600 800 Amount Sodium Chloride 0.9% 1, 600 800 000 ml @ 75 mls/hr IV . [id number] Rx#:[id number] Oral 200 600 Output: Urine 1300 3800 Other: Voiding Method Indwelling Catheter Indwelling Catheter - Exam PHYSICAL EXAMINATION: Patient is lying in the bed comfortably, no acute distress, awake alert and oriented.Malnourished.. HEENT: Normocephalic. Neck is supple. Pupils reactive. Nostrils clear. Oral cavity is moist. Ears reveal no drainage. Neck reveals .Patient does have neck brace.. CHEST EXAMINATION: Trachea is central. Symmetrical expansion. Lung art clear to auscultation and percussion. CARDIAC: Normal S1, S2 with no gallops. No murmurs ABDOMEN: Soft. Bowel sounds normal. No organomegaly. No abdominal bruits. Extremities: reveal no edema. No clubbing or cyanosis Neurologically awake, alert, oriented x3 with well-coordinated movements. No focal deficits noted Skin: No rash or skin lesions. Psychiatric: Coperative. Nonsuicidal, anxious Musculoskeletal: No joint swelling or deformity. Normal range of motion. - Labs CBC & Chem 7: 02/22/20 07:00 02/22/20 07:00 Labs: Abnormal Lab Results - Last 24 Hours (Table) 02/22/20 02/22/20 02/22/20 Range/Units 07:00 16:59 20:26 Sodium 132 L (135-145) mmol/L BUN 8.0 L (9.0-27.0) mg/dL Creatinine 0.5 L (0.6-1.5) mg/dL POC Glucose (mg/dL) 109 H 109 H (75-99) mg/dL 02/23/20 02/23/20 Range/Units 06:48 11:16 Sodium (135-145) mmol/L BUN (9.0-27.0) mg/dL Creatinine (0.6-1.5) mg/dL POC Glucose (mg/dL) 105 H 105 H (75-99) mg/dL Assessment and Plan Assessment: Status post C3-4-5 6 cervical fusion surgery and cervical decompression discectomy. Previous history of C5-6-7 cervical fusion surgery. Sinus tachycardia likely due to anxiety and pain. Hypovolemic hyponatremia Diabetes type 2 [id number] Hypertension Osteoarthritis of multiple joints Degenerative disc disease History of migraine headaches Irritable bowel syndrome Currently everyday smoker Hyperlipidemia Mild to moderate protein calorie malnutrition. DVT prophylaxis with SCDs Plan: Patient will be continued on IV hydration and monitor heart rate.Improved heart rate. TSH level is within normal limits. Continue with pain management and anxiolytics and follow-up closely. Patient states that she recently had stress test. Last stress echocardiogram and 2016 showed no inducible ischemia. Ejection fraction 60 to 65%. No significant valvular abnormalities noted. Encourage ambulation and incentive spirometry. Will follow with you closely and further recommendations based on the clinical course. Time with Patient: Greater than 30
--- NOTE | 2020-02-25 22:54 | P.PN ---
Subjective Progress Note Date: 02/24/20 Principal diagnosis: Status post C3-4-5 6 cervical fusion surgery and cervical decompression discectomy. Patient is a 59-year-old female with a known history of fibromyalgia, asthma, hypertension, osteoarthritis, diabetes type 2 [id number]-[id number] and history of migraine headaches, IBS and currently everyday smoker, previous history of C5-6-7 cervical fusion surgery was admitted to hospital for anterior cervical decompression surgery. Patient has been having bilateral upper and lower extremity weakness and multiple falls recently and had MRI in December 2019 showed severe cervical stenosis at C3-4 and 5. Patient underwent removal of deep hardware C5-6-7, anterior cervical decompression and discectomy and application of anterior cervical plate C3-4-5 6.. Postoperatively 0. Postoperatively patient has been tachycardic. Denied any complaints of chest pain or shortness of breath. No complaints of cough or sputum production. Patient has been afebrile. Saturating at 2 L via nasal cannula. Laboratory data showed WBC 12.7, hemoglobin 14.3, neutrophils 12.1 and ly mphocytes 0.4, sodium 130, potassium 4.1, chloride 91, BUN 8 and creatinine 0.44 TSH level is within normal limits at 0.493 02/22/2020 Patient is currently resting in the bed comfortably. No complaints of chest pain or shortness of breath.. Tachycardia isimproving. Patient is tolerating oral diet. Still complaining of neck pain but improved compared to yesterday. No complaints of fever or chills. 02/23/2020 Patient is currently sitting in the chair comfortably. Denied any complaints of chest pain or shortness of breath. Bilateral upper extremity strength is improving slightly. No complaints of numbness or tingling. Still complains of neck pain and is getting pain medications. No fever no chills. Participating in PT OT. No tachycardia. 02/24/2020 Patient is currently sitting on side of the bed. Denied any significant neck pain. Pain controlled with medication. Tolerating oral diet. Participating physical therapy. Possible discharge in the next 24 to 48 hours. Patient wishes to be discharged home. Current medications reviewed. Objective - Vital Signs Vital signs: Vital Signs Temp 98.3 F 02/24/20 14:00 Pulse 94 02/24/20 14:00 Resp 16 02/24/20 14:00 BP 117/79 12/19/20 14:00 Pulse Ox 98 02/24/20 14:00 Intake & Output 02/23/20 02/24/20 02/24/20 18:59 06:59 18:59 Intake Total 400 Output Total 2500 5200 Balance -2500 -4800 Intake: Oral 400 Output: Urine 2500 5200 Uretheral (Martinez) 2600 Other: Voiding Method Indwelling Catheter Indwelling Catheter Indwelling Catheter - Exam PHYSICAL EXAMINATION: Patient is lying in the bed comfortably, no acute distress, awake alert and oriented.Malnourished.. HEENT: Normocephalic. Neck is supple. Pupils reactive. Nostrils clear. Oral cavity is moist. Ears reveal no drainage. Neck reveals .Patient does have neck brace.. CHEST EXAMINATION: Trachea is central. Symmetrical expansion. Lung art clear to auscultation and percussion. CARDIAC: Normal S1, S2 with no gallops. No murmurs ABDOMEN: Soft. Bowel sounds normal. No organomegaly. No abdominal bruits. Extremities: reveal no edema. No clubbing or cyanosis Neurologically awake, alert, oriented x3 with well-coordinated movements. No focal deficits noted Skin: No rash or skin lesions. Psychiatric: Coperative. Nonsuicidal, anxious Musculoskeletal: No joint swelling or deformity. Normal range of motion. - Labs CBC & Chem 7: 02/22/20 07:00 02/22/20 07:00 Labs: Abnormal Lab Results - Last 24 Hours (Table) 02/23/20 02/24/20 02/24/20 Range/Units 20:48 07:09 11:32 POC Glucose (mg/dL) 149 H 112 H 107 H (75-99) mg/dL Assessment and Plan Assessment: Status post C3-4-5 6 cervical fusion surgery and cervical decompression d iscectomy. Previous history of C5-6-7 cervical fusion surgery. Sinus tachycardia likely due to anxiety and pain. Hypovolemic hyponatremia Diabetes type 2 [id number]-jnkpsmbxe Hypertension Osteoarthritis of multiple joints Degenerative disc disease History of migraine headaches Irritable bowel syndrome Currently everyday smoker Hyperlipidemia Mild to moderate protein calorie malnutrition. DVT prophylaxis with SCDs Plan: Patient will be continued on IV hydration and monitor heart rate.Improved heart rate. TSH level is within normal limits. Continue with pain management and anxiolytics and follow-up closely. Patient states that she recently had stress test. Last stress echocardiogram and 2017 showed no inducible ischemia. Ejection fraction 60 to 65%. No significant valvular abnormalities noted. Encourage ambulation and incentive spirometry. Will follow with you closely and further recommendations based on the clinical course.
--- NOTE | 2020-02-25 22:55 | P.PN ---
Subjective Progress Note Date: 02/25/20 Principal diagnosis: Status post C3-4-5 6 cervical fusion surgery and cervical decompression discectomy. Patient is a 59-year-old female with a known history of fibromyalgia, asthma, hypertension, osteoarthritis, diabetes type 2 [id number]-vswprxmde and history of migraine headaches, IBS and currently everyday smoker, previous history of C5-6-7 cervical fusion surgery was admitted to hospital for anterior cervical decompression surgery. Patient has been having bilateral upper and lower extremity weakness and multiple falls recently and had MRI in December 2019 showed severe cervical stenosis at C3-4 and 5. Patient underwent removal of deep hardware C5-6-7, anterior cervical decompression and discectomy and application of anterior cervical plate C3-4-5 6.. Postoperatively 0. Postoperatively patient has been tachycardic. Denied any complaints of chest pain or shortness of breath. No complaints of cough or sputum production. Patient has been afebrile. Saturating at 2 L via nasal cannula. Laboratory data showed WBC 12.7, hemoglobin 14.3, neutrophils 12.1 and ly mphocytes 0.4, sodium 130, potassium 4.1, chloride 91, BUN 8 and creatinine 0.44 TSH level is within normal limits at 0.493 02/22/2020 Patient is currently resting in the bed comfortably. No complaints of chest pain or shortness of breath.. Tachycardia isimproving. Patient is tolerating oral diet. Still complaining of neck pain but improved compared to yesterday. No complaints of fever or chills. 02/23/2020 Patient is currently sitting in the chair comfortably. Denied any complaints of chest pain or shortness of breath. Bilateral upper extremity strength is improving slightly. No complaints of numbness or tingling. Still complains of neck pain and is getting pain medications. No fever no chills. Participating in PT OT. No tachycardia. 02/24/2020 Patient is currently sitting on side of the bed. Denied any significant neck pain. Pain controlled with medication. Tolerating oral diet. Participating physical therapy. Possible discharge in the next 24 to 48 hours. Patient wishes to be discharged home. 02/25/2020 Patient is currently lying in the bed comfortably. Able to ambulate in the room. No complaints of chest pain or shortness of breath. Neck pain is fairly controlled. Patient is awake alert and oriented x3. Anticipate discharge the next 24 hours. Monitor CBC and BMP tomorrow. Current medications reviewed. Objective - Vital Signs Vital signs: Vital Signs Temp 97.5 F L 02/25/20 07:29 Pulse 85 02/25/20 07:29 Resp 18 02/25/20 07:29 BP 129/85 02/25/20 07:29 Pulse Ox 97 02/25/20 09:34 Intake & Output 02/24/20 02/25/20 02/25/20 18:59 06:59 18:59 Output Total 1500 950 Balance -1500 -950 Output: Urine 1500 950 Uretheral (Martinez) 950 Other: Voiding Method Indwelling Catheter Indwelling Catheter Indwelling Catheter - Exam PHYSICAL EXAMINATION: Patient is lying in the bed comfortably, no acute distress, awake alert and oriented.Malnourished.. HEENT: Normocephalic. Neck is supple. Pupils reactive. Nostrils clear. Oral cavity is moist. Ears reveal no drainage. Neck reveals .Patient does have neck brace.. CHEST EXAMINATION: Trachea is central. Symmetrical expansion. Lung art clear to auscultation and percussion. CARDIAC: Normal S1, S2 with no gallops. No murmurs ABDOMEN: Soft. Bowel sounds normal. No organomegaly. No abdominal bruits. Extremities: reveal no edema. No clubbing or cyanosis Neurologically awake, alert, oriented x3 with well-coordinated movements. No focal deficits noted Skin: No rash or skin lesions. Psychiatric: Coperative. Nonsuicidal, anxious Musculoskeletal: No joint swelling or deformity. Normal range of motion. - Labs CBC & Chem 7: 02/22/20 07:00 02/22/20 07:00 Labs: Abnormal Lab Results - Last 24 Hours (Table) 02/24/20 02/24/20 02/25/20 Range/Units 17:20 20:44 06:56 POC Glucose (mg/dL) 102 H 111 H 111 H (75-99) mg/dL 02/25/20 Range/Units 12:16 POC Glucose (mg/dL) 104 H (75-99) mg/dL Assessment and Plan Assessment: Status post C3-4-5 6 cervical fusion surgery and cervical decompression discectomy. Previous history of C5-6-7 cervical fusion surgery. Sinus tachycardia likely due to anxiety and pain. Hypovolemic hyponatremia Diabetes type 2 brh-ysoexah-vxigasfsk Hypertension Osteoarthritis of multiple joints Degenerative disc disease History of migraine headaches Irritable bowel syndrome Currently everyday smoker Hyperlipidemia Mild to moderate protein calorie malnutrition. DVT prophylaxis with SCDs Plan: Patient will be continued on IV hydration and monitor heart rate.Improved heart rate. TSH level is within normal limits. Continue with pain management and anxiolytics and follow-up closely. Patient states that she recently had stress test. Last stress echocardiogram and 2016 showed no inducible ischemia. Ejection fraction 60 to 65%. No significant valvular abnormalities noted. Encourage ambulation and incentive spirometry. Will follow with you closely and further recommendations based on the clinical course.
[2020-02-26 07:06] VITALS: TEMP 98.1
[2020-02-26] MEDS: SENNOSIDES-DOCUSATE SODIUM 1 EACH TAB PO SCH (07:06)
[2020-02-26] MEDS: THIAMINE 100 MG TAB PO SCH (07:07)
[2020-02-26] MEDS: lisinopriL 5 MG TAB PO SCH (07:07)
[2020-02-26] MEDS: CYANOCOBALAMIN 500 MCG TAB PO SCH (07:07)
[2020-02-26] MEDS: CYCLOBENZAPRINE 5 MG TAB PO SCH (07:07)
[2020-02-26] MEDS: CALCIUM CARBONATE 500 MG CHEWABLE PO SCH (07:08)
[2020-02-26] MEDS: CHOLECALCIFEROL 1,000 UNIT TAB PO SCH (07:08)
[2020-02-26] MEDS: ASCORBIC ACID 500 MG TAB PO SCH (07:08)
[2020-02-26] MEDS: amLODIPine 5 MG TAB PO SCH (07:08)
[2020-02-26] MEDS: ATORVASTATIN 10 MG TAB PO SCH (07:08)
[2020-02-26] MEDS: VITAMIN E (DL,TOCOPHERYL ACET) 400 UNIT CAP PO SCH (07:09)
[2020-02-26] MEDS: HYDROmorphone 0.5 MG/0.5 ML SYRINGE IVP PRN (07:10)
[2020-02-26 08:13] LABS: Basophils % (A) 1 %; Eosinophils # (A) 0.3 k/uL (0-0.7); Eosinophils % (A) 4 %; HCT 39.2 % (34.0-46.0); HGB 13.5 gm/dL (11.4-16.0); Lymphocytes # (A) 1.2 k/uL (1.0-4.8); Lymphocytes % (A) 15 %; MCH 33.7 pg (25.0-35.0); MCHC 34.5 g/dL (31.0-37.0); MCV 97.7 fL (80.0-100.0); Mean Platelet Volume 7.4; Monocytes # (A) 0.6 k/uL (0-1.0); Monocytes % (A) 8 %; Neutrophils # (A) 5.7 k/uL (1.3-7.7); Neutrophils % (A) 72 %; Platelet Count 224 k/uL (150-450); RBC 4.01 m/uL (3.80-5.40); WBC 7.9 k/uL (3.8-10.6)
[2020-02-26 11:42] LABS: African American GFR (CKD) 131.2 (60.0-200.0); Anion Gap 7.2 mmol/L (4.00-12.00); BUN/Creat Ratio 22.5 Ratio (12.00-20.00); Calcium 9.5 mg/dL (8.7-10.3); Carbon Dioxide 25.8 mmol/L (21.6-31.8); Non-African American GFR(CKD) 113.2 (60.0-200.0); Potassium 3.8 mmol/L (3.5-5.5)
[2020-02-26 11:53] LABS: Glucose,Whole Blood 96 mg/dL (75-99)
[2020-02-26] MEDS: HYDROcodone/APAP 5-325MG 1 EACH TAB PO PRN (13:02)
--- NOTE | 2020-02-26 13:07 | P.DS ---
Providers Date of admission: 02/24/20 14:50 Expected date of discharge: 02/26/20 Attending physician: Violeta Lay Consults: 02/21/20 16:38 Consult Physician Routine Consulting Provider: Ho Bolton Consult Reason/Comments: medical management Do you want consulting provider notified?: Already Contacted 02/22/20 10:42 Consult Physician Routine Consulting Provider: Cipriano Young Consult Reason/Comments: Severe upper and lower extremity weakness from cervical myelopathy, for anabella Do you want consulting provider notified?: Yes Primary care physician: Modesto Iraheta - Discharge Diagnosis(es) (1) Upper extremity weakness Current Visit: Yes Status: Acute (2) Lower extremity weakness Current Visit: Yes Status: Acute (3) History of cervical spinal arthrodesis Current Visit: Yes Status: Acute (4) Unable to ambulate Current Visit: Yes Status: Acute (5) Type 2 diabetes mellitus Current Visit: Yes Status: Acute (6) Cervical myelopathy Current Visit: Yes Status: Acute (7) Cervical stenosis of spinal canal Current Visit: Yes Status: Acute (8) Status post cervical spinal fusion Current Visit: Yes Status: Acute (9) Current tobacco use Current Visit: Yes Status: Acute Hospital Course: This is a pleasant 59-year-old female who presented with severe cervical spinal stenosis, cervical myelomalacia, cervical myelopathy, severe bilateral upper extremity and lower extremity weakness, and inability to ambulate who failed outpatient conservative therapy. She was admitted for a C3-4 and C4-5 anterior cervical decompression and fusion with removal of hardware at C5-6 and C6-7. The patient tolerated the procedure well and did well postoperatively. Given the patient's significant upper extremity and lower extremity bilateral weakness, cervical myelopathy, and difficulty with regular activities of daily living including feeding herself and hygiene, we strongly recommend her being discharged to a rehabilitation facility. Case management has applied for approval to discharge to inpatient rehabilitation. Patient states she is willing to go to an inpatient rehabilitation facility. If approved, we'll plan for discharge today. Condition on day of discharge stable. Patient was cleared preoperatively for surgery by Dr. Iraheta. Patient currently denies any nausea, vomiting, fever, or chills. Patient is eating and voiding freely without difficulty. Patient may shower Optifoam dressing intact. Patient may remove Optifoam dressing in 3 days and shower without a dressing at that time. Patient should refrain from driving until at least after their first follow-up appointment in the office. Patient should avoid excessive neck flexion, extension, rotation, and lateral sidebending; no overhead lifting; no lifting greater than 10 pounds. Patient's past medical history includes type 2 diabetes and current daily tobacco user history of previous cervical fusion C5-6 and C6-7. Physical Exam on day of discharge: Status post surgical day number 5 Patient is awake, alert, and oriented 3 Vital signs stable Good chest excursion with deep inspiration and expiration Incision over the cervical spine is clean, dry, intact with no active drainage no sign of infection No pain on palpation of the surgical site One small bruise over the right side of the upper sternum Significant atrophy and myelopathic changes of the hands bilaterally Patient has difficulty performing active range of motion bilateral upper extremity; significant difficulty with picking up a cup with both hands together at the bedside Multiple nicotine stains on the fingers Patient is wearing soft cervical collar Procedures: C3-4 and C4-5 anterior cervical decompression and fusion with removal of hardware at C5-6 and C6-7. Patient Condition at Discharge: Stable Plan - Discharge Summary Discharge Rx Participant: No New Discharge Prescriptions: New Hydrocodone/Acetaminophen [Groom 5-325] 1 each PO Q4HR PRN #42 tab PRN Reason: Pain Continue lisinopriL [Zestril] 5 mg PO BID Cyanocobalamin (Vitamin B-12) [Vitamin B-12] 2,500 mcg PO DAILY Ascorbic Acid [Vitamin C] 500 mg PO DAILY Vitamin E 400 unit PO DAILY Cholecalciferol [Vitamin D3 (25 Mcg = 1000 Iu)] 2,000 unit PO DAILY Atorvastatin [Lipitor] 10 mg PO DAILY amLODIPine [Norvasc] 5 mg PO DAILY #20 tab Cyclobenzaprine [Flexeril] 5 mg PO BID Fish Oil/Dha/Epa [Fish Oil 1,200 mg Fish Oil] 1 cap PO DAILY metFORMIN HCL [Glucophage] See Protocol PO DAILY PRN PRN Reason: BS>125 Fluticasone Nasal [place] [Flonase Nasal [place]] 1 spray EA NOSTRIL BID Calcium Carbonate [Calcium] 600 mg PO DAILY Discontinued HYDROcodone/APAP 5-325MG [Groom 5-325] 1 tab PO Q8H PRN PRN Reason: Pain Ciprofloxacin HCl [Cipro] 500 mg PO Q12HR Discharge Medication List Ascorbic Acid [Vitamin C] 500 mg PO DAILY 07/03/19 [History] Atorvastatin [Lipitor] 10 mg PO DAILY 07/03/19 [History] Cholecalciferol [Vitamin D3 (25 Mcg = 1000 Iu)] 2,000 unit PO DAILY 07/03/19 [History] Cyanocobalamin (Vitamin B-12) [Vitamin B-12] 2,500 mcg PO DAILY 07/03/19 [History] Vitamin E 400 unit PO DAILY 07/03/19 [History] lisinopriL [Zestril] 5 mg PO BID 07/03/19 [History] Cyclobenzaprine [Flexeril] 5 mg PO BID 11/22/19 [History] Fish Oil/Dha/Epa [Fish Oil 1,200 mg Fish Oil] 1 cap PO DAILY 11/22/19 [History] amLODIPine [Norvasc] 5 mg PO DAILY #20 tab 11/22/19 [Rx] Calcium Carbonate [Calcium] 600 mg PO DAILY 01/28/20 [History] Fluticasone Nasal [place] [Flonase Nasal [place]] 1 spray EA NOSTRIL BID 01/28/20 [History] metFORMIN HCL [Glucophage] See Protocol PO DAILY PRN 01/28/20 [History] Hydrocodone/Acetaminophen [Groom 5-325] 1 each PO Q4HR PRN #42 tab 02/23/20 [Rx] Follow up Appointment(s)/Referral(s): Malik Cabello, MAN [PHYSICIAN NEWS PHOTOGRAPHER] - 03/11/20 9:15 am (Patient may follow-up with Malik Cabello PA-C or Dr. Jay Lay at [facility] in 2-3 weeks following discharge. ) Activity/Diet/Wound Care/Special Instructions: 1. Patient may shower with Optifoam dressing intact. 2. Patient may remove Optifoam dressing in 4 days and shower without a dressing at that time. 3. Patient may wear soft cervical collar for comfort support as needed. 4. Patient should refrain from driving until at least after their first follow- up appointment in the office. 5. Patient should avoid excessive cervical flexion, extension, and side bending; avoid overhead lifting; no lifting greater than 10 pounds 6. Take medications as prescribed 7. Do not soak in tub Discharge Disposition: TRANSFER TO SNF/ECF
[2020-02-26 14:52] VITALS: BP 130/86; PULSE 100; RESP 18
--- NOTE | 2020-02-26 15:09 | P.PN ---
Progress Note - Text Progress Note Date: 02/26/20 Since the patient was seen this morning and discharged to rehab, the patient has changed her mind and would like to be discharged home. I counseled the patient on our concern with her going home and not getting the rehab and physical therapy that she needs. The patient was adamant that she is going home. She is offered home care which she also refuses. She understands the risks involved and states she is going home and that she will be fine on her own. The patient is discharged to home today 02/26/2020.
== END 2020-02-26 15:48 | DRG 472 ==
LOC: OR 08:57 → 6PED 13:56 → 4SSUR 18:12 → OR 02-23 08:39 → 4SSUR 02-23 23:30 → OBSVTOIN 02-24 14:50
PROVIDERS: ADMIT Orthopaedic Surgery Orthopaedic Surgery of the Spine; ATTEND Orthopaedic Surgery Orthopaedic Surgery of the Spine
PROC: 0RG20A0 Fusion of 2 or more Cervical Vertebral Joints with Interbody Fusion Device, Anterior Approach, Anterior Column, Open Approach (ICD-10-PCS; principal; 2020-02-21 10:15)
PROC: 0RP10AZ Removal of Interbody Fusion Device from Cervical Vertebral Joint, Open Approach (ICD-10-PCS; principal; 2020-02-21 10:15)
PROC: 01N10ZZ Release Cervical Nerve, Open Approach (ICD-10-PCS; principal; 2020-02-21 10:15)
PROC: 00NW0ZZ Release Cervical Spinal Cord, Open Approach (ICD-10-PCS; principal; 2020-02-21 10:15)
PROC: 0RB30ZZ Excision of Cervical Vertebral Disc, Open Approach (ICD-10-PCS; principal; 2020-02-21 10:15)
DX: M48.02 Spinal stenosis, cervical region (principal); E44.0 Moderate protein-calorie malnutrition; E87.1 Hypo-osmolality and hyponatremia; M50.01 Cervical disc disorder with myelopathy, high cervical region; Z68.1 Body mass index [BMI] 19.9 or less, adult; E11.9 Type 2 diabetes mellitus without complications; R00.0 Tachycardia, unspecified; E86.1 Hypovolemia; R26.9 Unspecified abnormalities of gait and mobility; M50.30 Other cervical disc degeneration, unspecified cervical region; R35.0 Frequency of micturition; E78.5 Hyperlipidemia, unspecified; F41.9 Anxiety disorder, unspecified; M43.10 Spondylolisthesis, site unspecified; I10 Essential (primary) hypertension; Z20.828 Contact with and (suspected) exposure to other viral communicable diseases; J45.909 Unspecified asthma, uncomplicated; K58.9 Irritable bowel syndrome, unspecified; M15.9 Polyosteoarthritis, unspecified; M79.7 Fibromyalgia; G43.909 Migraine, unspecified, not intractable, without status migrainosus; R29.6 Repeated falls; F17.200 Nicotine dependence, unspecified, uncomplicated; Z91.19 Patient's noncompliance with other medical treatment and regimen; Z98.1 Arthrodesis status; Z90.710 Acquired absence of both cervix and uterus; Z98.891 History of uterine scar from previous surgery; Z98.890 Other specified postprocedural states; Z88.0 Allergy status to penicillin; Z79.899 Other long term (current) drug therapy; Z79.84 Long term (current) use of oral hypoglycemic drugs; Z87.01 Personal history of pneumonia (recurrent); Z80.0 Family history of malignant neoplasm of digestive organs; Z90.49 Acquired absence of other specified parts of digestive tract
CPT/HCPCS: 72020; 80048; 83036; 84443; 85025; 86850; 86900; 86901; 87635; 93005; 94760

== ENCOUNTER 2021-09-04 12:34 | Emergency (ER) | payer OTHER ==
--- NOTE | 2021-09-04 16:56 | ED ---
General Adult HPI - General Chief complaint: Extremity Injury, Lower Stated complaint: Left Ankle Injury, Leg swelling, Injury on Forehea Time Seen by Provider: 09/04/21 16:03 Source: patient, family Mode of arrival: wheelchair Limitations: no limitations - History of Present Illness Initial comments: Dictation was produced using [employer] dictation software. please excuse any grammatical, word or spelling errors. Chief Complaint: 61-year-old female multiple comorbidities presents to the emergency department for left ankle pain from left ankle injury 10 days ago History of Present Illness: [id number] female she has multiple comorbidities. Patient is a poor historian. States that she is here for left ankle pain. Patient has her at the bedside to help provide history of present illness. Patient had some sort of spinal surgery several years ago and since then has been having ulcer formation and erythema and pain to the bilateral feet in a stocking distribution. 10 days ago she follows a couch and injured her an kle. They did not seek any medical attention until today when patient's pain was slightly worse. He states he did not seek any medical attention because it is difficulty to the emergency department or hospital or primary care doctor due to patient's stability. reports that patient's bilateral like symptoms have been significantly worse in the past. They have seen other doctors for her feet in the past and has not been given a specific answers was causing it. Patient has no acute complaints of right lower extremity. The ROS documented in this emergency department record has been reviewed and confirmed by me. Those systems with pertinent positive or negative responses have been documented in the HPI. All other systems are other negative and/or noncontributory. PHYSICAL EXAM: General Impression: Alert and oriented x3, not in acute distress HEENT: Normocephalic atraumatic, extra-ocular movements intact, pupils equal and reactive to light bilaterally, mucous membranes moist. Cardiovascular: Heart regular rate and rhythm Chest: Able to complete full sentences, no retractions, no tachypnea Abdomen: abdomen soft, non-tender, non-distended, no organomegaly Musculoskeletal: Pulses present and equal in all extremities, no peripheral edema Lower extremities: Severe erythema and a stocking distribution with ulcerated formation diffusely. There is a gross deformity at the left ankle with medial displacement. Motor: no focal deficits noted Neurological: CN II-XII grossly intact, no focal motor or sensory deficits noted Skin: Intact with no visualized rashes Psych: Normal affect and mood ED course: 61-year-old female presents to the emergency department for chief com plaint of left ankle pain. She does appear to have a chronic wound processes to bilateral lower extremities distally. Vital Signs upon arrival are within acceptable limits. Auditory evaluation obtained. Leukocytosis of 18.9. Sodium is 115. Rest of labs within acceptable limits. Ankle x-ray shows acute fracture of the distal left fibula tibia with shortening. Pictures of the leg were taken it and placed on a camera for review in order to avoid removing the splint too often. Patient started on vancomycin and cefepime. Patient is a sodium of 1:15 concern for critical hyponatremia. She is normal vitals and does not have any symptoms of severe hyponatremia. This concerned that her hyponatremia may be driven by bilateral lower extremity infection. Nonetheless patient will be placed in ICU for IC monitoring for the short-term. She started on antibiotics. Orthopedic surgery, infectious disease and nephrology consulted. Spoke with sports information director on-call, Dr. Hines who requests patient be started on 70 ml of normal saline per hour and that she should have a sodium redrawn [address] Hines recalled with the result. Dr. Hines also requested add-on for urine sodium and urine osmolality. EKG interpretation: Ventricular rate 100, sinus tachycardia, NE interval d iffuse, care is 87, QTC 396. No NE prolongation, no QTC prolongation, no ST or T-wave changes noted. EKG compared to 02/22/2020 showing no changes. Overall, this EKG is unremarkable - Related Data Home Medications Medication Instructions Recorded Confirmed No Known Home Medications 09/04/21 09/04/21 Allergies Allergy/AdvReac Type Severity Reaction Status Date / Time Penicillins AdvReac Nausea & Verified 09/04/21 17:32 Vomiting & Diarrhea Review of Systems ROS Statement: Those systems with pertinent positive or pertinent negative responses have been documented in the HPI. ROS Other: All systems not noted in ROS Statement are negative. Past Medical History Past Medical History: Asthma, Diabetes Mellitus, Fibromyalgia, Hypertension, Osteoarthritis (OA), Pneumonia Additional Past Medical History / Comment(s): DDD,numbness rt/lft fingers, 2010 renal failure and seizure when diabetes first diagnosed (2008). , hx migraines, environmental allergies, hx IBS. History of Any Multi-Drug Resistant Organisms: None Reported Past Surgical History: Appendectomy, Section, Hysterectomy, Orthopedic Surgery Additional Past Surgical History / Comment(s): disc surgery-plate and screws in neck, x2 (appendectomy during one of the ), ORIF rt ankle, FX LEFT EYE SOCKET AND lt eye POPPED OUT.repaired and placed back into socket, lipoma removed lt thigh Past Anesthesia/Blood Transfusion Reactions: No Reported Reaction Additional Past Anesthesia/Blood Transfusion Reaction / Comment(s): no complications with prior blood transfusion Past Psychological History: No Psychological Hx Reported Smoking Status: Current every day smoker - Past Family History Father Family Medical History: Cancer Additional Family Medical History / Comment(s): pancreatic cancer General Exam Limitations: no limitations Course Vital Signs 09/04/21 09/04/21 09/04/21 13:36 18:35 19:10 Temperature 98.0 F 96.7 F L Pulse Rate 97 101 H 101 H Respiratory 18 16 17 Rate Blood Pressure 110/60 86/47 129/71 O2 Sat by Pulse 98 100 100 Oximetry 09/04/21 19:58 Temperature Pulse Rate 78 Respiratory 16 Rate Blood Pressure 105/79 O2 Sat by Pulse Oximetry Medical Decision Making - Lab Data Result diagrams: 09/04/21 18:24 09/04/21 18:24 Lab Results 09/04/21 09/04/21 09/04/21 Range/Units 18:24 18:24 18:24 WBC 18.9 H (3.8-10.6) k/uL RBC 4.15 (3.80-5.40) m/uL Hgb 13.1 (11.4-16.0) gm/dL Hct 37.5 (34.0-46.0) % MCV 90.5 (80.0-100.0) fL MCH 31.7 (25.0-35.0) pg MCHC 35.0 (31.0-37.0) g/dL RDW 14.1 (11.5-15.5) % Plt Count 555 H (150-450) k/uL MPV 6.4 Neutrophils % 91 % Lymphocytes % 4 % Monocytes % 3 % Eosinophils % 1 % Basophils % 0 % Neutrophils # 17.2 H (1.3-7.7) k/uL Lymphocytes # 0.7 L (1.0-4.8) k/uL Monocytes # 0.6 (0-1.0) k/uL Eosinophils # 0.2 (0-0.7) k/uL Basophils # 0.1 (0-0.2) k/uL ESR Cancelled Sodium 115 L* (137-145) mmol/L Potassium 4.4 (3.5-5.1) mmol/L Chloride 81 L (98-107) mmol/L Carbon Dioxide 21 L (22-30) mmol/L Anion Gap 13 mmol/L BUN 9 (7-17) mg/dL Creatinine 0.68 (0.52-1.04) mg/dL Est GFR (CKD-EPI)AfAm >90 (>60 ml/min/1.73 sqM) Est GFR (CKD-EPI)NonAf >90 (>60 ml/min/1.73 sqM) Glucose 97 (74-99) mg/dL Plasma Lactic Acid Brad 1.6 (0.7-2.0) mmol/L Calcium 9.3 (8.4-10.2) mg/dL Magnesium 1.9 (1.6-2.3) mg/dL Total Bilirubin 0.8 (0.2-1.3) mg/dL AST 44 H (14-36) U/L ALT 19 (4-34) U/L Alkaline Phosphatase 179 H (38-126) U/L C-Reactive Protein 6.7 H (<1.0) mg/dL Total Protein 7.4 (6.3-8.2) g/dL Albumin 4.0 (3.5-5.0) g/dL 09/04/21 Range/Units 19:19 WBC (3.8-10.6) k/uL RBC (3.80-5.40) m/uL Hgb (11.4-16.0) gm/dL Hct (34.0-46.0) % MCV (80.0-100.0) fL MCH (25.0-35.0) pg MCHC (31.0-37.0) g/dL RDW (11.5-15.5) % Plt Count (150-450) k/uL MPV Neutrophils % % Lymphocytes % % Monocytes % % Eosinophils % % Basophils % % Neutrophils # (1.3-7.7) k/uL Lymphocytes # (1.0-4.8) k/uL Monocytes # (0-1.0) k/uL Eosinophils # (0-0.7) k/uL Basophils # (0-0.2) k/uL ESR 30 H Sodium (137-145) mmol/L Potassium (3.5-5.1) mmol/L Chloride (98-107) mmol/L Carbon Dioxide (22-30) mmol/L Anion Gap mmol/L BUN (7-17) mg/dL Creatinine (0.52-1.04) mg/dL Est GFR (CKD-EPI)AfAm (>60 ml/min/1.73 sqM) Est GFR (CKD-EPI)NonAf (>60 ml/min/1.73 sqM) Glucose (74-99) mg/dL Plasma Lactic Acid Brad (0.7-2.0) mmol/L Calcium (8.4-10.2) mg/dL Magnesium (1.6-2.3) mg/dL Total Bilirubin (0.2-1.3) mg/dL AST (14-36) U/L ALT (4-34) U/L Alkaline Phosphatase (38-126) U/L C-Reactive Protein (<1.0) mg/dL Total Protein (6.3-8.2) g/dL Albumin (3.5-5.0) g/dL Disposition Clinical Impression: Hyponatremia, Leg fracture, Cellulitis, leg Disposition: ADMITTED IP TO THIS [facility] Condition: Critical Decision Time: 19:30
--- NOTE | 2021-09-04 18:29 | XR ---
EXAMINATION TYPE: XR ankle limited bilateral DATE OF EXAM: 09/04/2021 5:59 PM INDICATION: Patient age:Female; 61 years old; Reason for study: deformity; COMPARISON: None TECHNIQUE: The bilateral ankles in frontal, lateral and oblique. FINDINGS: Right: Post fixation hardware of the distal fibula and tibia. No evidence for acute fracture. Pitting edema is seen. Left: Acute fracture of the distal fibula and tibia with posterior displacement of the tibia and ante rior displacement of the fibula. There is shortening. No radiopaque foreign bodies. IMPRESSION: 1. Acute fracture of the distal left fibula and tibia with shortening. No obvious intra-articular ext ension. 2. No evidence of acute fracture of the right lower extremity. Postsurgical changes with pitting mariano a present.
[2021-09-04 18:33] LABS: Basophils # (A) 0.1 k/uL (0-0.2); Basophils % (A) 0 %; Eosinophils # (A) 0.2 k/uL (0-0.7); Eosinophils % (A) 1 %; HCT 37.5 % (34.0-46.0); HGB 13.1 gm/dL (11.4-16.0); Lymphocytes # (A) 0.7 k/uL (1.0-4.8); Lymphocytes % (A) 4 %; MCH 31.7 pg (25.0-35.0); MCV 90.5 fL (80.0-100.0); Mean Platelet Volume 6.4; Monocytes # (A) 0.6 k/uL (0-1.0); Monocytes % (A) 3 %; Neutrophils # (A) 17.2 k/uL (1.3-7.7); Neutrophils % (A) 91 %; Platelet Count 555 k/uL (150-450); RBC 4.15 m/uL (3.80-5.40); RDW 14.1 % (11.5-15.5); WBC 18.9 k/uL (3.8-10.6)
[2021-09-04] MEDS: MORPHINE SULFATE 4 MG/ML SYRINGE IVP STA ×3 (18:33→19:11)
[2021-09-04] MEDS ORDERED: SODIUM CHLORIDE 0.9% 1,000 ML IV STA ×2 (18:43→18:49)
[2021-09-04 18:44] LABS: ALT 19 U/L (4-34); AST 44 U/L (14-36); African American GFR (CKD) >90 (>60 ml/min/1.73 sqM); Alkaline Phosphatase 179 U/L (38-126); Anion Gap 13 mmol/L; Blood Urea Nitrogen 9 mg/dL (7-17); C Reactive Protein 6.7 mg/dL (<1.0); Calcium 9.3 mg/dL (8.4-10.2); Carbon Dioxide 21 mmol/L (22-30); Chloride 81 mmol/L (98-107); Glucose 97 mg/dL (74-99); Magnesium 1.9 mg/dL (1.6-2.3); Non-African American GFR(CKD) >90 (>60 ml/min/1.73 sqM); Potassium 4.4 mmol/L (3.5-5.1); Total Bilirubin 0.8 mg/dL (0.2-1.3); Total Protein 7.4 g/dL (6.3-8.2)
[2021-09-04] MEDS ORDERED: VANCOMYCIN IV PER PHARMACY 1 EACH MISC MISCELLANE PRN (18:44)
[2021-09-04 18:47] VITALS: TEMP 96.7
[2021-09-04 18:48] LABS: Sodium 115 mmol/L (137-145)
[2021-09-04] MEDS ORDERED: VANCOMYCIN 1,000 MG in SODIUM CHLORIDE 0.9% 250 ML IVPB STA (18:49)
[2021-09-04] MEDS ORDERED: CEFEPIME 2 GM in SODIUM CHLORIDE 0.9% 100 ML IVPB STA (19:48)
[2021-09-04] MEDS ORDERED: NALOXONE 0.4 MG/ML 1 ML VIAL IV PRN (19:56)
[2021-09-04] MEDS ORDERED: MORPHINE SULFATE 4 MG/ML SYRINGE IV PRN (19:56)
[2021-09-04 20:00] VITALS: BP 105/79; PULSE 78; RESP 16
[2021-09-04] MEDS ORDERED: PANTOPRAZOLE 40 MG/10 ML VIAL IV SCH (20:00)
[2021-09-04] MEDS ORDERED: HEPARIN SODIUM,PORCINE/PF 5,000 UNIT/0.5 ML SYRINGE SQ SCH (20:00)
[2021-09-04] MEDS ORDERED: SODIUM CHLORIDE 0.9% 1,000 ML IV SCH (20:00)
[2021-09-05] MEDS ORDERED: VANCOMYCIN 1,000 MG in SODIUM CHLORIDE 0.9% 250 ML IVPB SCH (07:00)
--- NOTE | 2021-09-05 15:15 | P.HPIM ---
History of Present Illness H&P Date: 09/04/21 Please use this as a brief H&P along with discharge summary as patient was still in the emergency room awaiting a bed assignment in the ICU. This is a 61-year-old female who presented to the emergency department with left ankle pain and left ankle injury approximately 10 days ago and did not seek m edical attention patient having worsening pain and spouse brought her here. Patient was to be admitted this patient was also found to have severe hyponatremia with a sodium level of 115 and was tentatively admitted for ICU close monitoring. Patient also with noted white blood count of 18.9. Received a call from ER nurse that patient is requesting to sign out AGAINST MEDICAL ADVICE and at the bedside is willing and wanting to take the patient home per their request. Risks versus benefits were explained in detail and patient signed the AMA paperwork. Strongly encouraged primary care follow-up and call 911 or report to the nearest emergency room if having any symptoms. Patient was alert and oriented 3 tonight any chest pain, shortness of breath, or palpitations. Vital signs were stable and patient left AGAINST MEDICAL ADVICE with her . Past Medical History Past Medical History: Asthma, Diabetes Mellitus, Fibromyalgia, Hypertension, Osteoarthritis (OA), Pneumonia Additional Past Medical History / Comment(s): DDD,numbness rt/lft fingers, 2010 renal failure and seizure when diabetes first diagnosed (2008). , hx migraines, environmental allergies, hx IBS. History of Any Multi-Drug Resistant Organisms: None Reported Past Surgical History: Appendectomy, Section, Hysterectomy, Orthopedic Surgery Additional Past Surgical History / Comment(s): disc surgery-plate and screws in neck, x2 (appendectomy during one of the ), ORIF rt ankle, FX LEFT EYE SOCKET AND lt eye POPPED OUT.repaired and placed back into socket, lipoma removed lt thigh Past Anesthesia/Blood Transfusion Reactions: No Reported Reaction Additional Past Anesthesia/Blood Transfusion Reaction / Comment(s): no complications with prior blood transfusion Past Psychological History: No Psychological Hx Reported Smoking Status: Current every day smoker - Past Family History Father Family Medical History: Cancer Additional Family Medical History / Comment(s): pancreatic cancer Medications and Allergies Home Medications Medication Instructions Recorded Confirmed Type No Known Home Medications 09/04/21 09/04/21 History Allergies Allergy/AdvReac Type Severity Reaction Status Date / Time Penicillins AdvReac Nausea & Verified 09/04/21 17:32 Vomiting & Diarrhea Physical Exam Vitals: Vital Signs Temp Pulse Resp BP Pulse Ox 09/04/21 19:58 78 16 105/79 09/04/21 19:10 101 H 17 129/71 100 09/04/21 18:35 96.7 F L 101 H 16 86/47 100 Results CBC & Chem 7: 09/04/21 18:24 09/04/21 18:24 Labs: Abnormal Lab Results - Last 24 Hours (Table) 09/04/21 09/04/21 09/04/21 Range/Units 18:24 18:24 19:19 WBC 18.9 H (3.8-10.6) k/uL Plt Count 555 H (150-450) k/uL Neutrophils # 17.2 H (1.3-7.7) k/uL Lymphocytes # 0.7 L (1.0-4.8) k/uL ESR 30 H (0-20) mm/hr Sodium 115 L* (137-145) mmol/L Chloride 81 L (98-107) mmol/L Carbon Dioxide 21 L (22-30) mmol/L AST 44 H (14-36) U/L Alkaline Phosphatase 179 H (38-126) U/L C-Reactive Protein 6.7 H (<1.0) mg/dL
== END 2021-09-04 22:06 | disposition left against medical advice (07) ==
LOC: EC 12:34 → 2SICU 19:56 → UNDOADMIN 19:56 → EC 22:06
DX: S82.92XA Unspecified fracture of left lower leg, initial encounter for closed fracture (principal); L03.116 Cellulitis of left lower limb; J45.909 Unspecified asthma, uncomplicated; E11.9 Type 2 diabetes mellitus without complications; I10 Essential (primary) hypertension; F17.200 Nicotine dependence, unspecified, uncomplicated; E87.1 Hypo-osmolality and hyponatremia; Z88.0 Allergy status to penicillin; X58.XXXA Exposure to other specified factors, initial encounter
CPT/HCPCS: 36415; 80053; 85652; 83605; 83735; 85025; 86140; 73600; 99284; 96365; 96366; 96361; 96375; J3370; J2270

== ENCOUNTER 2021-09-10 22:06 | Inpatient (IN) | payer OTHER ==
[2021-09-10] MEDS ORDERED: SODIUM CHLORIDE 0.9% 1,000 ML IV STA ×3 (22:32→22:53)
--- NOTE | 2021-09-10 22:42 | ED ---
Recheck HPI - General Chief Complaint: Extremity Problem,Nontraumatic Stated Complaint: Leg Pain Time Seen by Provider: 09/10/21 22:24 Source: patient, EMS, RN notes reviewed, old records reviewed Mode of arrival: EMS Limitations: altered mental status - History of Present Illness Initial Comments: This is a 61-year-old female to the emergency department for evaluation patient is accepted as a transfer for lower extremity cellulitis and infection. Wound and altered. Patient's been dealing with this for some time. Patient is seen at outside facility started on antibiotics and sent to our facility. No other issues. Patient herself has no significant complaints MD Complaint: abnormal lab (Low potassium), needs IV antibiotics -: unknown Returns Today for: wound recheck, Called Because of Abnormal Lab/Test, persistent/worsening pain related to initial visit Symptoms Since Prior Visit: no new symptoms Context: planned re-check Treatments Prior to Arrival: Given Antibiotics on, Given Pain Meds on - Related Data Home Medications Medication Instructions Recorded Confirmed No Known Home Medications 09/04/21 09/04/21 Allergies Allergy/AdvReac Type Severity Reaction Status Date / Time Penicillins AdvReac Nausea & Verified 09/04/21 17:32 Vomiting & Diarrhea Review of Systems ROS Statement: Those systems with pertinent positive or pertinent negative responses have been documented in the HPI. ROS Other: All systems not noted in ROS Statement are negative. Past Medical History Past Medical History: Asthma, Diabetes Mellitus, Fibromyalgia, Hypertension, Osteoarthritis (OA), Pneumonia Additional Past Medical History / Comment(s): DDD,numbness rt/lft fingers, 2010 renal failure and seizure when diabetes first diagnosed (2008). , hx migraines, environmental allergies, hx IBS. History of Any Multi-Drug Resistant Organisms: None Reported Past Surgical History: Appendectomy, Section, Hysterectomy, Orthopedic Surgery Additional Past Surgical History / Comment(s): disc surgery-plate and screws in neck, x2 (appendectomy during one of the ), ORIF rt ankle, FX LEFT EYE SOCKET AND lt eye POPPED OUT.repaired and placed back into socket, lipoma removed lt thigh Past Anesthesia/Blood Transfusion Reactions: No Reported Reaction Additional Past Anesthesia/Blood Transfusion Reaction / Comment(s): no complications with prior blood transfusion Past Psychological History: No Psychological Hx Reported Smoking Status: Current every day smoker Past Alcohol Use History: None Reported Past Drug Use History: None Reported - Past Family History Father Family Medical History: Cancer Additional Family Medical History / Comment(s): pancreatic cancer General Exam Limitations: altered mental status General appearance: alert, in no apparent distress, lethargic, cachectic Head exam: Present: atraumatic, normocephalic, normal inspection Eye exam: Present: normal appearance, PERRL, EOMI. Absent: scleral icterus, conjunctival injection, periorbital swelling ENT exam: Present: normal exam, mucous membranes moist Neck exam: Present: normal inspection. Absent: tenderness, meningismus, lymphadenopathy Respiratory exam: Present: normal lung sounds bilaterally. Absent: respiratory distress, wheezes, rales, rhonchi, stridor Cardiovascular Exam: Present: regular rate, normal rhythm, normal heart sounds. Absent: systolic murmur, diastolic murmur, rubs, gallop, clicks GI/Abdominal exam: Present: soft, normal bowel sounds. Absent: distended, tenderness, guarding, rebound, rigid Extremities exam: Present: normal inspection, full ROM, normal capillary refill. Absent: tenderness, pedal edema, joint swelling, calf tenderness Back exam: Present: normal inspection Neurological exam: Present: alert, oriented X3, CN II-XII intact Psychiatric exam: Present: normal affect, normal mood Skin exam: Present: warm, dry, intact, normal color. Absent: rash Course Vital Signs 09/10/21 22:23 Pulse Rate 78 Respiratory 16 Rate Blood Pressure 83/51 O2 Sat by Pulse 96 Oximetry - Reevaluation(s) Reevaluation #1: 09/11/21 00:11 Medical record is reviewed Reevaluation #2: 09/11/21 00:12 Transferring paperwork is also been reviewed Reevaluation #3: 09/11/21 00:12 Patient has no complaints asking for something to drink and eat - Consultations Consultation #1: Spoke with [facility] physicians who agree to admit this patient Medical Decision Making - Medical Decision Making 61-year-old female with failure to thrive malnutrition hypokalemia dehydration sent here for possible sepsis secondary to leg cellulitis and infection. Patient be admitted for IV antibiotics and resuscitation Disposition Clinical Impression: Dehydration, Cellulitis, leg, Hypokalemia Disposition: ADMITTED IP TO THIS HOSP Condition: Fair Is patient prescribed a controlled substance at d/c from ED?: No Referrals: None,Stated [Primary Care Provider] - 1-2 days Time of Disposition: 00:05
[2021-09-10] MEDS ORDERED: SODIUM CHLORIDE 0.9% 500 ML 500 ML IV STA (22:53)
[2021-09-10] MEDS ORDERED: VANCOMYCIN IV PER PHARMACY 1 EACH MISC MISCELLANE PRN (22:53)
[2021-09-10] MEDS ORDERED: VANCOMYCIN 1,000 MG in SODIUM CHLORIDE 0.9% 250 ML IVPB ONE (23:30)
[2021-09-11] MEDS ORDERED: NALOXONE 0.4 MG/ML 1 ML VIAL IV PRN (00:09)
[2021-09-11] MEDS ORDERED: ONDANSETRON 4 MG/2 ML VIAL IVP PRN (00:09)
[2021-09-11] MEDS ORDERED: IPRATROPIUM-ALBUTEROL 3 ML NEB INHALATION PRN (00:10)
[2021-09-11 00:27] LABS: Basophils % (A) 0 %; Eosinophils # (A) 0.1 k/uL (0-0.7); Eosinophils % (A) 0 %; HCT 30.5 % (34.0-46.0); HGB 10.4 gm/dL (11.4-16.0); Lymphocytes # (A) 0.4 k/uL (1.0-4.8); Lymphocytes % (A) 3 %; MCHC 34.1 g/dL (31.0-37.0); MCV 93.8 fL (80.0-100.0); Mean Platelet Volume 7.4; Monocytes # (A) 0.3 k/uL (0-1.0); Monocytes % (A) 2 %; Neutrophils # (A) 12.3 k/uL (1.3-7.7); Neutrophils % (A) 93 %; Platelet Count 310 k/uL (150-450); RBC 3.25 m/uL (3.80-5.40); RDW 14.7 % (11.5-15.5); WBC 13.2 k/uL (3.8-10.6)
[2021-09-11 01:03] LABS: ALT 22 U/L (4-34); AST 86 U/L (14-36); African American GFR (CKD) >90 (>60 ml/min/1.73 sqM); Albumin 2.2 g/dL (3.5-5.0); Alkaline Phosphatase 92 U/L (38-126); Anion Gap 5 mmol/L; Blood Urea Nitrogen 19 mg/dL (7-17); Calcium 6.6 mg/dL (8.4-10.2); Carbon Dioxide 17 mmol/L (22-30); Chloride 110 mmol/L (98-107); Glucose 81 mg/dL (74-99); Magnesium 1.6 mg/dL (1.6-2.3); Non-African American GFR(CKD) >90 (>60 ml/min/1.73 sqM); Sodium 132 mmol/L (137-145); Total Bilirubin 0.2 mg/dL (0.2-1.3); Total Protein 4.7 g/dL (6.3-8.2)
[2021-09-11 01:44] LABS: INR 0.9 (<1.2); Partial Thromboplastin Time 25.1 sec (22.0-30.0); Prothrombin Time 10.2 sec (9.0-12.0)
[2021-09-11] MEDS ORDERED: POTASSIUM BICARBONATE/CIT AC 20 MEQ TABLET.EFF PO ONE (02:19)
[2021-09-11] MEDS: MORPHINE SULFATE 4 MG/ML SYRINGE IV PRN ×3 (02:31→14:55)
[2021-09-11 02:36] LABS: Appearance,Urine Clear (Clear); Bacteria,Urine Rare /hpf; Bilirubin,Urine Negative (Negative); Blood,Urine Large (Negative); Color,Urine Yellow; Glucose,Urine (UA) Negative (Negative); Ketones,Urine Negative (Negative); Leukocyte Esterase,Urine Moderate (Negative); Nitrite,Urine Negative (Negative); PH, Urine 5.5 (5.0-8.0); Protein,Urine Trace (Negative); RBC,Urine 51 /hpf (0-5); Specific Gravity,Urine 1.012 (1.001-1.035); Squamous Epithelial Cell,Urine 1 /hpf (0-4); Urobilinogen,Urine <2.0 mg/dL (<2.0); WBC,Urine 3 /hpf (0-5)
[2021-09-11 03:51] LABS: Glucose,Whole Blood 105 mg/dL (70-110)
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
[2021-09-11] MEDS: INSULIN ASPART (NovoLOG) 100 UNIT/ML VIAL SQ SCH ×4 (08:59→22:58)
[2021-09-11] MEDS ORDERED: PANTOPRAZOLE 40 MG/10 ML VIAL IV SCH (09:00)
[2021-09-11] MEDS: HEPARIN SODIUM,PORCINE/PF 5,000 UNIT/0.5 ML SYRINGE SQ SCH ×3 (09:00→23:33)
[2021-09-11] MEDS: POTASSIUM BICARBONATE/CIT AC 20 MEQ TABLET.EFF PO SCH (09:01)
[2021-09-11 09:03] LABS: Glucose,Whole Blood 84 mg/dL (70-110)
--- NOTE | 2021-09-11 11:03 | P.CONS ---
History of Present Illness - Reason for Consult Consult date: 09/11/21 wound care - History of Present Illness This is a 61-year-old female with a past medical history significant for hypertension, asthma, type 2 diabetes patient was transferred from [facility] when she presented with bilateral lower extremity open ulcers. Patient is a poor historian. Patient states that she lives with her boyfriend who takes care of her. Patient stated that until about a week ago she was able to sit on the couch and extend her extremities. At this time however she is contracted with minimal movement. Patient has a gross deformity noted to the left lower extremity with increased pain. Patient has multiple open ulcerations to bilateral lower extremities and bilateral feet bilateral hips, sacral, and right ear. Upon arrival patient was found to have maggots in her wounds. Ulcerations or open ulcerations with significant amount of slough and minimal granulation. Fat layer exposed to all open ulcerations. Review Of Systems: Constitutional: No fever, no chills, no night sweats. No weight change. No weakness, fatigue or lethargy. No daytime sleepiness. Integumentary:reports wounds, no lesions. No rash or pruritus. No unusual bruising. No change in hair or nails. Physical exam: General Appearance: Alert, cooperative, no distress, appears stated age. Skin: See HPI all other Skin color, texture, tugor normal, no rashes or lesions. Neurologic: Alert oriented x3 Assessment: 1. Stage II pressure ulcer left calcaneus 2. Stage II pressure ulcer left ankle 3. Stage II pressure ulcer right great toe 4. Stage II pressure ulcer right ankle 5. Multiple nonhealing ulcerations to left lower extremity with fat layer exposure 6. Multiple nonhealing ulcerations to right lower extremity with fat layer exposure 7. Stage II pressure ulcer right ear 8. Nonhealing ulcerations to sacrum Plan: 1. Apply triad to all open ulcerations except ulcerations to bilateral lower extremities from the knees down. 2. Bilateral lower extremities/feet from knee down apply absorptive silver, saline moistened gauze, dry gauze, rolled gauze and secured paper tape. 3. Patient required advanced wound care. We'll be happy to see her in the wound care center Thank you for the consultation and questions was contact the wound care center DNP note has been reviewed and discussed with Dr. Juarez and the impression and plan of care has been directed as dictated. Past Medical History Past Medical History: Asthma, Diabetes Mellitus, Fibromyalgia, Hypertension, Osteoarthritis (OA), Pneumonia Additional Past Medical History / Comment(s): DDD,numbness rt/lft fingers, 2010 renal failure and seizure when diabetes first diagnosed (2008). , hx migraines, environmental allergies, hx IBS. History of Any Multi-Drug Resistant Organisms: None Reported Past Surgical History: Appendectomy, Section, Hysterectomy, Orthopedic Surgery Additional Past Surgical History / Comment(s): disc surgery-plate and screws in neck, x2 (appendectomy during one of the ), ORIF rt ankle, FX LEFT EYE SOCKET AND lt eye POPPED OUT.repaired and placed back into socket, lipoma removed lt thigh Past Anesthesia/Blood Transfusion Reactions: No Reported Reaction Additional Past Anesthesia/Blood Transfusion Reaction / Comm: no complications with prior blood transfusion Past Psychological History: No Psychological Hx Reported Smoking Status: Current every day smoker Past Alcohol Use History: None Reported Past Drug Use History: None Reported - Past Family History Father Family Medical History: Cancer Additional Family Medical History / Comment(s): pancreatic cancer Medications and Allergies Home Medications Medication Instructions Recorded Confirmed Type Sudafed(Unknown) 1 tab PO BID PRN 09/11/21 09/11/21 History Allergies Allergy/AdvReac Type Severity Reaction Status Date / Time Penicillins AdvReac Nausea & Verified 09/11/21 08:55 Vomiting & Diarrhea Physical Exam Vitals: Vital Signs Temp Pulse Pulse Resp BP BP Pulse Ox 09/11/21 08:00 98.3 F 103 H 17 117/72 98 09/11/21 07:26 100 09/11/21 04:05 100 16 100 09/11/21 03:30 86 19 103/76 09/11/21 03:06 100 11 L 103/76 09/11/21 02:00 100 16 100 09/11/21 01:00 100 16 104/82 100 09/11/21 00:31 100 16 95/65 100 09/10/21 22:23 78 16 83/51 96 Intake and Output 09/10/21 09/11/21 09/11/21 22:59 06:59 14:59 Intake Total 540 Balance 540 Intake: Oral 540 Other: Voiding Method Diaper Incontinent # Voids 1 Weight 50 kg 50 kg Results CBC & Chem 7: 09/10/21 23:59 09/10/21 23:59 Labs: Abnormal Lab Results - Last 24 Hours (Table) 09/10/21 09/10/21 09/11/21 Range/Units 23:59 23:59 02:00 WBC 13.2 H (3.8-10.6) k/uL RBC 3.25 L (3.80-5.40) m/uL Hgb 10.4 L (11.4-16.0) gm/dL Hct 30.5 L (34.0-46.0) % Neutrophils # 12.3 H (1.3-7.7) k/uL Lymphocytes # 0.4 L (1.0-4.8) k/uL Sodium 132 L (137-145) mmol/L Potassium 3.0 L (3.5-5.1) mmol/L Chloride 110 H (98-107) mmol/L Carbon Dioxide 17 L (22-30) mmol/L BUN 19 H (7-17) mg/dL Plasma Lactic Acid Brad 0.6 L (0.7-2.0) mmol/L Calcium 6.6 L (8.4-10.2) mg/dL AST 86 H (14-36) U/L Total Protein 4.7 L (6.3-8.2) g/dL Albumin 2.2 L (3.5-5.0) g/dL Urine Protein (Negative) Urine Blood (Negative) Ur Leukocyte Esterase (Negative) Urine RBC (0-5) /hpf Urine Bacteria (None) /hpf 09/11/21 Range/Units 02:27 WBC (3.8-10.6) k/uL RBC (3.80-5.40) m/uL Hgb (11.4-16.0) gm/dL Hct (34.0-46.0) % Neutrophils # (1.3-7.7) k/uL Lymphocytes # (1.0-4.8) k/uL Sodium (137-145) mmol/L Potassium (3.5-5.1) mmol/L Chloride (98-107) mmol/L Carbon Dioxide (22-30) mmol/L BUN (7-17) mg/dL Plasma Lactic Acid Brad (0.7-2.0) mmol/L Calcium (8.4-10.2) mg/dL AST (14-36) U/L Total Protein (6.3-8.2) g/dL Albumin (3.5-5.0) g/dL Urine Protein Trace H (Negative) Urine Blood Large H (Negative) Ur Leukocyte Esterase Moderate H (Negative) Urine RBC 51 H (0-5) /hpf Urine Bacteria Rare H (None) /hpf Assessment and Plan (1) Stage II pressure ulcer of left ankle Current Visit: Yes Status: Acute Code(s): L89.522 - PRESSURE ULCER OF LEFT ANKLE, STAGE 2 SNOMED Code(s): 11403304604459 (2) Stage II pressure ulcer of left heel Current Visit: Yes Status: Acute Code(s): L89.622 - PRESSURE ULCER OF LEFT HEEL, STAGE 2 SNOMED Code(s): 28969075751156 (3) Stage II pressure ulcer of right ankle Current Visit: Yes Status: Acute Code(s): L89.512 - PRESSURE ULCER OF RIGHT ANKLE, STAGE 2 SNOMED Code(s): 52728083737494 (4) Pressure injury of right hip, stage 1 Current Visit: Yes Status: Acute Code(s): L89.211 - PRESSURE ULCER OF RIGHT HIP, STAGE 1 SNOMED Code(s): 84351987927815 (5) Nonhealing ulcer of multiple sites of left lower extremity with fat layer exposed Current Visit: Yes Status: Acute Code(s): L97.922 - NON-PRS CHR ULC UNSP PRT OF L LOW LEG W FAT LAYER EXPOSED SNOMED Code(s): 20425464 (6) Nonhealing ulcer of multiple sites of right lower extremity with fat layer exposed Current Visit: Yes Status: Acute Code(s): L97.912 - NON-PRS CHR ULC UNSP PRT OF R LOW LEG W FAT LAYER EXPOSED SNOMED Code(s): 99414309 (7) Pressure ulcer of sacral region, stage 2 Current Visit: Yes Status: Acute Code(s): L89.152 - PRESSURE ULCER OF SACRAL REGION, STAGE 2 SNOMED Code(s): 11378609781382297 (8) Non-pressure chronic ulcer of other part of right foot with fat layer exposed Current Visit: Yes Status: Acute Code(s): L97.512 - NON-PRS CHRONIC ULCER OTH PRT RIGHT FOOT W FAT LAYER EXPOSED SNOMED Code(s): 848479616
[2021-09-11] MEDS: HYDROPHILIC CREAM 180 GM TUBE TOPICAL SCH (11:23)
[2021-09-11] MEDS: VANCOMYCIN 1,000 MG in SODIUM CHLORIDE 0.9% 250 ML IVPB SCH (11:23)
[2021-09-11 12:01] LABS: Glucose,Whole Blood 68 mg/dL (70-110)
[2021-09-11 12:15] LABS: Glucose,Whole Blood 75 mg/dL (70-110)
[2021-09-11 12:19] VITALS: BMI 17.8
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
[2021-09-11 17:13] LABS: Glucose,Whole Blood 115 mg/dL (70-110)
[2021-09-11 20:40] LABS: Glucose,Whole Blood 101 mg/dL (70-110)
[2021-09-12] MEDS: VANCOMYCIN 1,000 MG in SODIUM CHLORIDE 0.9% 250 ML IVPB SCH ×3 (01:24→21:36)
[2021-09-12] MEDS ORDERED: SODIUM CHLORIDE 0.9% 1,000 ML IV ONE (01:45)
[2021-09-12] MEDS: SODIUM CHLORIDE 0.9% 1,000 ML IV SCH ×2 (04:37→16:37)
--- NOTE | 2021-09-12 07:22 | P.CONS ---
History of Present Illness - Reason for Consult Consult date: 09/11/21 Cellulitis Requesting physician: Tiffany Trevino - Chief Complaint Bilateral leg nonhealing wound and pain x days - History of Present Illness Patient is a 61-year-old female with a past medical history significant for type 2 diabetes mellitus asthma and hypertension patient was transferred from [facility] for evaluation of lower extremity wound, maryellen ent lives at home with her significant other who was helping with the lower extremity wound apparently patient had this wound for a couple of weeks now and this patient has been mostly bedbound state patient been complaining of significant pain to the wound describing them to be sharp almost 10 out of 10 in severity patient did have some drainage from the wound denies any foul-smelling or high-grade fever on presentation to the hospital the patient was afebrile and no fever have been recorded subsequently patient did have white count of 13.2 with a left shift kidney function has been normal AST was mildly elevated urine has been positive no cultures has been done here infectious disease was consulted regarding lower extremity cellulitis and antibiotic management most information has been obtained from review the chart and talking to nursing staff as the patient herself is not good historian Review of Systems Positive points has been mentioned in HPI complete review could not be obtained because of his underlying mental status Past Medical History Past Medical History: Asthma, Diabetes Mellitus, Fibromyalgia, Hypertension, Osteoarthritis (OA), Pneumonia Additional Past Medical History / Comment(s): DDD,numbness rt/lft fingers, 2010 renal failure and seizure when diabetes first diagnosed (2008). , hx migraines, environmental allergies, hx IBS. History of Any Multi-Drug Resistant Organisms: None Reported Past Surgical History: Appendectomy, Section, Hysterectomy, Orthopedic Surgery Additional Past Surgical History / Comment(s): disc surgery-plate and screws in neck, x2 (appendectomy during one of the ), ORIF rt ankle, FX LEFT EYE SOCKET AND lt eye POPPED OUT.repaired and placed back into socket, lipoma removed lt thigh Past Anesthesia/Blood Transfusion Reactions: No Reported Reaction Additional Past Anesthesia/Blood Transfusion Reaction / Comm: no complications with prior blood transfusion Past Psychological History: No Psychological Hx Reported Smoking Status: Current every day smoker Past Alcohol Use History: None Reported Past Drug Use History: None Reported - Past Family History Father Family Medical History: Cancer Additional Family Medical History / Comment(s): pancreatic cancer Medications and Allergies Home Medications Medication Instructions Recorded Confirmed Type Sudafed(Unknown) 1 tab PO BID PRN 09/11/21 09/11/21 History Allergies Allergy/AdvReac Type Severity Reaction Status Date / Time Penicillins AdvReac Nausea & Verified 09/11/21 08:55 Vomiting & Diarrhea Physical Exam Vitals: Vital Signs Temp Pulse Pulse Resp BP BP Pulse Ox 09/11/21 13:23 98.2 F 101 H 17 88/58 98 09/11/21 08:00 98.3 F 103 H 17 117/72 98 09/11/21 07:26 100 09/11/21 04:05 100 16 100 09/11/21 03:30 86 19 103/76 09/11/21 03:06 100 11 L 103/76 09/11/21 02:00 100 16 100 09/11/21 01:00 100 16 104/82 100 09/11/21 00:31 100 16 95/65 100 09/10/21 22:23 78 16 83/51 96 Intake and Output 09/11/21 09/11/21 09/11/21 06:59 14:59 22:59 Intake Total 540 240 Balance 540 240 Intake: Oral 540 240 Other: Voiding Method Diaper Incontinent # Voids 1 Weight 50 kg 50 kg GENERAL DESCRIPTION: Middle-aged female lying in bed, no distress. No tachypnea or accessory muscle of respiration use. HEENT: Shows Pallor , no scleral icterus. Oral mucous membrane is dry. No pharyngeal erythema or thrush NECK: Trachea central, no thyromegaly. LUNGS: Unlabored breathing. Clear to auscultation anteriorly. No wheeze or crackle. HEART: S1, S2, regular rate and rhythm. No loud murmur ABDOMEN: Soft, no tenderness , guarding or rigidity, no organomegaly EXTREMITIES: Bilateral lower extremity wounds with minimal slough and surrounding redness no foul-smelling drainage SKIN: No rash, no masses palpable. NEUROLOGICAL: The patient is lethargic but arousable and orientation could not be determined Results CBC & Chem 7: 09/10/21 23:59 09/10/21 23:59 Labs: Abnormal Lab Results - Last 24 Hours (Table) 09/10/21 09/10/21 09/11/21 Range/Units 23:59 23:59 02:00 WBC 13.2 H (3.8-10.6) k/uL RBC 3.25 L (3.80-5.40) m/uL Hgb 10.4 L (11.4-16.0) gm/dL Hct 30.5 L (34.0-46.0) % Neutrophils # 12.3 H (1.3-7.7) k/uL Lymphocytes # 0.4 L (1.0-4.8) k/uL Sodium 132 L (137-145) mmol/L Potassium 3.0 L (3.5-5.1) mmol/L Chloride 110 H (98-107) mmol/L Carbon Dioxide 17 L (22-30) mmol/L BUN 19 H (7-17) mg/dL POC Glucose (mg/dL) (70-110) mg/dL Plasma Lactic Acid Brad 0.6 L (0.7-2.0) mmol/L Calcium 6.6 L (8.4-10.2) mg/dL AST 86 H (14-36) U/L Total Protein 4.7 L (6.3-8.2) g/dL Albumin 2.2 L (3.5-5.0) g/dL Urine Protein (Negative) Urine Blood (Negative) Ur Leukocyte Esterase (Negative) Urine RBC (0-5) /hpf Urine Bacteria (None) /hpf 09/11/21/09/26 Range/Units 02:27 11:57 WBC (3.8-10.6) k/uL RBC (3.80-5.40) m/uL Hgb (11.4-16.0) gm/dL Hct (34.0-46.0) % Neutrophils # (1.3-7.7) k/uL Lymphocytes # (1.0-4.8) k/uL Sodium (137-145) mmol/L Potassium (3.5-5.1) mmol/L Chloride (98-107) mmol/L Carbon Dioxide (22-30) mmol/L BUN (7-17) mg/dL POC Glucose (mg/dL) 68 L (70-110) mg/dL Plasma Lactic Acid Brad (0.7-2.0) mmol/L Calcium (8.4-10.2) mg/dL AST (14-36) U/L Total Protein (6.3-8.2) g/dL Albumin (3.5-5.0) g/dL Urine Protein Trace H (Negative) Urine Blood Large H (Negative) Ur Leukocyte Esterase Moderate H (Negative) Urine RBC 51 H (0-5) /hpf Urine Bacteria Rare H (None) /hpf Assessment and Plan (1) Cellulitis, leg Current Visit: Yes Status: Acute Code(s): L03.119 - CELLULITIS OF UNSPECIFIED PART OF LIMB SNOMED Code(s): 036193285 Plan: 1patient with bilateral lower extremity ulceration seems to be more of a pressure ulcer mostly in the stage II involving the left ankle calcaneus area as well as right ankle and bilateral lower extremity and concerning for secondary cellulitis likely from gram-positive skin gustavo less likely gram-negative infection. 2penicillin allergy that would limit the number of antibiotics safe to use. 3await vascular surgery evaluation possible debridement and deep culture. 4continue with vancomycin and Rocephin for now empirically. 5local wound care per wound care team. We will follow on clinical condition and cultures to further adjust medication if needed Thank you for this consultation will follow this patient along with you Time with Patient: Greater than 30
[2021-09-12 07:41] LABS: Glucose,Whole Blood 93 mg/dL (70-110)
[2021-09-12] MEDS: POTASSIUM BICARBONATE/CIT AC 20 MEQ TABLET.EFF PO SCH (08:39)
[2021-09-12] MEDS: HEPARIN SODIUM,PORCINE/PF 5,000 UNIT/0.5 ML SYRINGE SQ SCH ×2 (08:39→17:25)
[2021-09-12] MEDS: HYDROPHILIC CREAM 180 GM TUBE TOPICAL SCH (08:39)
[2021-09-12] MEDS: PANTOPRAZOLE 40 MG TABLET PO SCH (08:41)
--- NOTE | 2021-09-12 09:17 | P.GSCN ---
History of Present Illness Consult date: 09/12/21 History of present illness: Patient is a 61-year-old female with a significant past medical history of hypertension, asthma, diabetes who was a transfer from an outside hospital for her wounds. She is a poor historian. She states that she lives with her boyf salma who does take care of her. She states that she has not walked in about 2 months. She is contracted with minimal movement. She states she has pain in her left leg and wants her leg straightened out. Upon initial arrival there was, 2 there were maggots in the wound. Majority of the history is obtained via chart review. Past Medical History Past Medical History: Asthma, Diabetes Mellitus, Fibromyalgia, Hypertension, Osteoarthritis (OA), Pneumonia Additional Past Medical History / Comment(s): DDD,numbness rt/lft fingers, 2010 renal failure and seizure when diabetes first diagnosed (2008). , hx migraines, environmental allergies, hx IBS. History of Any Multi-Drug Resistant Organisms: None Reported Past Surgical History: Appendectomy, Section, Hysterectomy, Orthopedic Surgery Additional Past Surgical History / Comment(s): disc surgery-plate and screws in neck, x2 (appendectomy during one of the ), ORIF rt ankle, FX LEFT EYE SOCKET AND lt eye POPPED OUT.repaired and placed back into socket, lipoma removed lt thigh Past Anesthesia/Blood Transfusion Reactions: No Reported Reaction Additional Past Anesthesia/Blood Transfusion Reaction / Comm: no complications with prior blood transfusion Past Psychological History: No Psychological Hx Reported Smoking Status: Current every day smoker Past Alcohol Use History: None Reported Past Drug Use History: None Reported - Past Family History Father Family Medical History: Cancer Additional Family Medical History / Comment(s): pancreatic cancer Medications and Allergies Home Medications Medication Instructions Recorded Confirmed Type Sudafed(Unknown) 1 tab PO BID PRN 09/11/21 09/11/21 History Allergies Allergy/AdvReac Type Severity Reaction Status Date / Time Penicillins AdvReac Nausea & Verified 09/11/21 08:55 Vomiting & Diarrhea Surgical - Exam Vital Signs Pulse Resp BP Pulse Ox 78 16 83/51 96 09/10/21 22:23 09/10/21 22:23 09/10/21 22:23 09/10/21 22:23 General is a pleasant female, contracted all 4 extremities, multiple wounds throughout. HEENT is normocephalic, atraumatic. Wound on her ear. Poor dentition. Heart appears regular at this time. Lungs with diminished breath sounds. Again contracted for extremities. Multiple wounds on the sacrum ischium bilateral thighs bilateral lower extremities. Gross deformity of the left lower extremity at the level of the ankle. Thickened toenails. Difficulty to palpate pulses. Minimal edema. Results Right lower extremity with hardware, both bone fracture of the left lower extremity - Labs 09/10/21 23:59 09/10/21 23:59 Abnormal Lab Results - Last 24 Hours (Table) 09/11/21 09/11/21 Range/Units 11:57 17:10 POC Glucose (mg/dL) 68 L 115 H (70-110) mg/dL Assessment and Plan Assessment: Multiple wounds throughout Contracted extremities Left lower extremity fracture Plan: Significant lower extremity wounds with contracture. At this time local wound care only. Treat orthopedic injuries. Eval arterial US if able, uncertain reasoning for 4 extremity contracture. Family/patient discussion for goals of care?
[2021-09-12 10:42] LABS: Basophils # (A) 0.02 X 10*3/uL (0.00-0.10); Basophils % (A) 0.3 %; Eosinophils # (A) 0.06 X 10*3/uL (0.04-0.35); Eosinophils % (A) 0.9 %; HCT 26.5 % (37.2-46.3); HGB 8.7 g/dL (12.0-15.0); Immature Grans, Automated 1.6 %; Lymphocytes # (A) 0.68 X 10*3/uL (0.90-5.00); MCH 29.6 pg (27.0-32.0); MCHC 32.8 g/dL (32.0-37.0); MCV 90.1 fL (80.0-97.0); Mean Platelet Volume 9.2 fL (9.5-12.2); Monocytes # (A) 0.72 X 10*3/uL (0.20-1.00); Monocytes % (A) 10.6 %; NRBC Per 100 WBC 0 /100 WBCS (0.0-0.0); Neutrophils # (A) 5.19 X 10*3/uL (1.80-7.70); Neutrophils % (A) 76.6 %; Platelet Count 236 X 10*3/uL (140-440); RBC 2.94 X 10*6/uL (4.10-5.20); RDW 15.2 % (11.5-14.5); WBC 6.78 X 10*3/uL (4.50-10.00)
[2021-09-12] MEDS: INSULIN ASPART (NovoLOG) 100 UNIT/ML VIAL SQ SCH ×4 (10:57→20:55)
[2021-09-12 11:06] LABS: ALT 25 U/L (8-44); AST 72 U/L (13-35); African American GFR (CKD) 120.2 (60.0-200.0); Albumin 2.3 g/dL (3.8-4.9); Albumin/Globulin Ratio 1.05 (1.60-3.17); Alkaline Phosphatase 84 U/L (41-126); Blood Urea Nitrogen 9.4 mg/dL (9.0-27.0); Calcium 7.1 mg/dL (8.7-10.3); Carbon Dioxide 19.8 mmol/L (20.0-27.5); Chloride 104 mmol/L (96-109); Globulin 2.2 g/dL (1.6-3.3); Glucose 91 mg/dL (70-110); Non-African American GFR(CKD) 103.7 (60.0-200.0); Potassium 3.3 mmol/L (3.5-5.5); Sodium 132 mmol/L (135-145); Total Bilirubin <0.15 mg/dL (0.30-1.20); Total Protein 4.5 g/dL (6.2-8.2)
[2021-09-12 11:19] LABS: Glucose,Whole Blood 124 mg/dL (70-110)
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
[2021-09-12] MEDS: MORPHINE SULFATE 4 MG/ML SYRINGE IV PRN (14:50)
--- NOTE | 2021-09-12 15:06 | XR ---
EXAMINATION TYPE: XR pelvis AP view, XR tibia fibula bilateral, XR foot limited bilateral, XR ankle c omplete bilateral, XR knee complete bilateral, XR femur bilateral DATE OF EXAM: 09/12/2021 CLINICAL HISTORY: Pain rule out fracture. TECHNIQUE: A single AP view of the pelvis is obtained. 2 views of the bilateral femurs, legs, and fee t are obtained. 3 views of the bilateral knees and ankles are obtained. COMPARISON: CT abdomen and pelvis 2015. Bilateral ankle x-rays September 04, 2021 FINDINGS: Osseous structures are demineralized which is noted to low radiographic sensitivity. There is no acute displaced fracture evident in the pelvis. There may be some asymmetric narrowing of the right sacroiliac joint. Left sacroiliac joint appears within normal limits. Pubic symphysis is intact . Hlnx-dj-qirblzso axial joint space loss in both hips slightly greater in the left hip. The overlyi ng soft tissue appears unremarkable. Images of the bilateral femurs show no acute displaced fractures. Overlying soft tissue is unremarkab le. Images of the bilateral knees show no acute displaced fractures. Mild to moderate tricompartment join t space loss is present. There is small right knee suprapatellar joint effusion. Images of the bilateral legs show age-indeterminate comminuted slightly displaced fracture through pr oximal fibular diaphysis on the left. No acute displaced fracture of the right tibia or fibula. Overl apryl clothing or blanket material is present bilaterally. Postsurgical change at level of medial and lateral malleolus through healed fractures on the right is redemonstrated. Ankle mortise symmetry is maintained. Left ankle redemonstrated is comminuted displa albert fractures with impaction through the distal tibial metaphysis and distal fibular diaphysis with s ome new callus formation at level of the distal fibula on the left. There is persistent medial and an terior angulation of the distal fracture fragments. Alignment is stable. Images of the bilateral feet redemonstrates demineralization. Evaluation is suboptimal due to the dem ineralization along with overlying clothing or blanket material and lack of oblique positioning. Anson ot exclude subtle nondisplaced linear fracture base of fifth metatarsal on the left. Correlate with p oint tenderness is advised. No acute displaced fracture in the right foot. IMPRESSION: There is redemonstration of acute/subacute displaced comminuted fractures through the dis sara tibial metaphysis and fibular diaphysis on the left as detailed above. Alignment is stable from J une 30. Additional slightly displaced acute/subacute fracture of the left proximal tibial metadiaphys is is present. There is suspected acute/subacute nondisplaced transverse fracture base of the fifth m etatarsal in the left foot or Hernandez type fracture. Correlate with point tenderness advised. No acute or subacute displaced fracture in the right lower extremity or pelvis.
--- NOTE | 2021-09-12 15:32 | P.PN ---
Subjective Progress Note Date: 09/12/21 patient seen and examined. Essentially unchanged from previous. Currently in mediboots bilateral lower extremities. Objective - Vital Signs Vital signs: Vital Signs Temp 98.2 F 09/12/21 14:00 Pulse 117 H 09/12/21 14:00 Resp 17 09/12/21 14:00 BP 122/84 09/12/21 14:00 Pulse Ox 97 09/12/21 14:00 FiO2 Intake & Output 09/11/21 09/12/21 09/12/21 18:59 06:59 18:59 Intake Total 240 1184 Output Total 600 Balance 240 -600 1184 Weight 50 kg Intake: Oral 240 1184 Output: Urine 600 Other: Voiding Method Diaper Incontinent # Voids 1 - Exam general is a chronically ill-appearing female in no acute distress. Contracted at all 4 extremities. Heart is regular. Multiple wounds bilaterally.gross deformities. Left lower extremity as seen previously. - Labs CBC & Chem 7: 09/12/21 06:43 09/12/21 06:43 Labs: Abnormal Lab Results - Last 24 Hours (Table) 09/11/21 09/12/21 09/12/21 Range/Units 17:10 06:43 06:43 RBC 2.94 L (4.10-5.20) X 10*6/uL Hgb 8.7 L (12.0-15.0) g/dL Hct 26.5 L (37.2-46.3) % RDW 15.2 H (11.5-14.5) % MPV 9.2 L (9.5-12.2) fL Immature Gran # 0.11 H (0.00-0.04) X 10*3/uL Lymphocytes # 0.68 L (0.90-5.00) X 10*3/uL Sodium 132 L (135-145) mmol/L Potassium 3.3 L (3.5-5.5) mmol/L Carbon Dioxide 19.8 L (20.0-27.5) mmol/L Anion Gap 8.20 L (10.00-18.00) mmol/L Creatinine 0.5 L (0.6-1.5) mg/dL POC Glucose (mg/dL) 115 H (70-110) mg/dL Calcium 7.1 L (8.7-10.3) mg/dL Total Bilirubin <0.15 L (0.30-1.20) mg/dL AST 72 H (13-35) U/L Total Protein 4.5 L (6.2-8.2) g/dL Albumin 2.3 L (3.8-4.9) g/dL Albumin/Globulin Ratio 1.05 L (1.60-3.17) g/dL 09/12/21 Range/Units 11:18 RBC (4.10-5.20) X 10*6/uL Hgb (12.0-15.0) g/dL Hct (37.2-46.3) % RDW (11.5-14.5) % MPV (9.5-12.2) fL Immature Gran # (0.00-0.04) X 10*3/uL Lymphocytes # (0.90-5.00) X 10*3/uL Sodium (135-145) mmol/L Potassium (3.5-5.5) mmol/L Carbon Dioxide (20.0-27.5) mmol/L Anion Gap (10.00-18.00) mmol/L Creatinine (0.6-1.5) mg/dL POC Glucose (mg/dL) 124 H (70-110) mg/dL Calcium (8.7-10.3) mg/dL Total Bilirubin (0.30-1.20) mg/dL AST (13-35) U/L Total Protein (6.2-8.2) g/dL Albumin (3.8-4.9) g/dL Albumin/Globulin Ratio (1.60-3.17) g/dL Assessment and Plan Assessment: Multiple wounds throughout Contracted extremities Left lower extremity fracture Plan: Significant lower extremity wounds with contracture. Eval arterial US if able in the future, uncertain reasoning for 4 extremity contracture. At this time local wound care only. Treat orthopedic injuries.
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
--- NOTE | 2021-09-12 16:27 | CDI ---
Documentation Clarification Form Date: 09/15/2021 03:53:00 PM From: Renetta Boyd RN CCDS Admit Date: 09/11/2021 12:10:00 AM Patient Name: Basilia Graf Visit Number: [id number] Discharge Date: ATTENTION: The Clinical Documentation Specialists (CDI) and [facility] Coding Staff appreciate your assistance in clarifying documentation. Please respond to the clarification below the line at the bottom and electronically sign. The CDI & [facility] Coding staff will review the response and follow-up if needed. Please note: Queries are made part of the Legal Health Record. If you have any questions, please contact the author of this message via ITS. Dr. Tiffany Trevino The patient presented with the following clinical indicators. Additional clarification regarding the etiology/cause of the clinical indicators is requested. History/Risk Factors: 61-year-old female presents to the ED as a transfer from [facility] for failure to thrive, malnutrition, leg infection with cellulitis. Medical history: DM2 Clinical Indicators: WBC: 09/10 Wbc 13.2; Neutrophils 12.3 Vitals signs: 09/10 B/P 83/51; HR 78; RR 16; SpO2 96% room air ID Consult: 09/11 patient with bilateral lower extremity ulceration seems to be more of a pressure ulcer mostly in the stage II involving the left ankle calcaneus area as well as right ankle and bilateral lower extremity and concerning for secondary cellulitis likely from gram positive skin gustavo less likely gram-negative infection. Possible debridement with culture. Wound care consult: 09/11 Stage 2 pressure ulcer left calcaneus, Stage 2 pressure ulcer left ankle, Stage 2 pressure ulcer right great toe, Stage 2 pressure ulcer right ankle, Multiple nonhealing ulcerations to the left lower extremity with fat layer exposure. Multiple nonhealing ulcerations to the right lower extremity with fat layer exposure, Stage 2 pressure ulcer right ear. Stage 2 pressure ulcer sacral region, Non pressure chronic ulcer of other part of right foot with fat layer exposed. Cardiovascular surgery consult: 09/12 Significant lower extremity wounds with contracture. At this time local wound care only. ED Note: 09/10 61-year-old female with failure to thrive, malnutrition, hypokalemia, dehydration, sent here for possible sepsis secondary to leg cellulitis and infection. Treatment: ID Consult: see above Antibiotics: 09/10 Ceftriaxone Sodium 2gm IVPB x 1; 09/10 Vancomycin 1,000mg IVPB x 1; 09/11 Vancomycin 1,000mg IVPB Q12H, 09/11 Ceftriaxone sodium 1gm IVPB Q12H IV Bolus: 0.9NS 1L bolus x 2 In your professional opinion, please clarify if these findings signify one of the following conditions: [ ] Sepsis POA [ ] Sepsis ruled out [ ] Other, please specify [ ] Unable to determine SIRS Criteria: 2 or more of the following may indicate SIRS -Temperature < 96.8F (36C) or > 101.0F (38.3C) -Heart Rate > 90 bpm -Respiratory Rate > 20 breaths/min or PaCO2 < 32 mmHg -White Blood Cell Count > 12,000 or < 4,000 cells/mm3 or > 10% bands (Template Last Reviewed: April 2020) Sepsis POA MTDD
[2021-09-12 16:56] LABS: Glucose,Whole Blood 107 mg/dL (70-110)
--- NOTE | 2021-09-12 16:57 | CDI ---
Documentation Clarification Form Date: 09/12/2021 04:30:25 PM From: Renetta Boyd RN CCDS Admit Date: 09/11/2021 12:10:00 AM Patient Name: Basilia Graf Visit Number: [id number] Discharge Date: ATTENTION: The Clinical Documentation Specialists (CDI) and [facility] Coding Staff appreciate your assistance in clarifying documentation. Please respond to the clarification below the line at the bottom and electronically sign. The CDI & [facility] Coding staff will review the response and follow-up if needed. Please note: Queries are made part of the Legal Health Record. If you have any questions, please contact the author of this message via ITS. Dr. Tiffany Trevino, Tiffany Roque MD Malnutrition is documented 09/10, ED note. Additional clarification regarding the severity of malnutrition is requested. History/Risk Factors: 61-year-old female presents to the ED as a transfer from [facility] for failure to thrive, malnutrition, leg infection with cellulitis, Multiple pressure ulcers and non-pressure ulcers bilateral legs. Medical history: DM2 Clinical Indicators: ED Note: 09/10 61-year-old female with failure to thrive, malnutrition, hypokalemia, dehydration, sent here for possible sepsis secondary to leg cellulitis and infection. H&P 09/11: Ill appearing contracted female, disheveled, appears significantly older than stated age, normal weight. Derm: Very large right lateral leg ulcer with purulent base, multiple large purulent base ulcers overlying the left anterior leg, warm. Nutritional assessment: 09/11 Current BMI: 17.8 kg 5ft 6inch weight 50kg BMI classification Underweight [place] body weight 59kg Nutritional Intake: No PO intake documented as of yet, Regular diet, underweight Glucerna TID and Carbohydrate modified diet Treatment: Monitor PO intake and supplement intake. Dietary Consult: see above Supplements: Glucerna TID Lab monitoring: Chemistry Please clarify the type of malnutrition, if known: [ ] Severe Protein-Calorie Malnutrition [ ] Other condition, please specify [ ] Unable to Determine (Template Last Revised: May 2020) Severe Protein-Calorie Malnutrition MTDD
--- NOTE | 2021-09-12 17:14 | CDI ---
Documentation Clarification Form Date: 09/12/2021 04:59:50 PM From: Renetta Boyd RN CCDS Admit Date: 09/11/2021 12:10:00 AM Patient Name: Basilia Graf Visit Number: [id number] Discharge Date: ATTENTION: The Clinical Documentation Specialists (CDI) and [facility] Coding Staff appreciate your assistance in clarifying documentation. Please respond to the clarification below the line at the bottom and electronically sign. The CDI & [facility] Coding staff will review the response and follow-up if needed. Please note: Queries are made part of the Legal Health Record. If you have any questions, please contact the author of this message via ITS. Dr. Tiffany Trevino Your patient has contractures and has been bedridden for two years. 09/12, Medicine progress note. Based on this information and the findings below, is there an additional diagnosis that is clinically appropriate for this patient? History/Risk Factors: 61-year-old female presents to the ED as a transfer from [facility] for failure to thrive, malnutrition, leg infection with cellulitis, Multiple pressure ulcers and non-pressure ulcers bilateral legs. Medical history: DM2. 09/11, H&P. Clinical Indicators: 09/12 Medicine progress note: Exam- General: Ill appearing contracted female, disheveled, appears significantly older than stated age, normal weight. Derm: Very large right leg ulcer with purulent base, multiple large purulent bas ulcers overlaying the left anterior leg. Ext: Muscle strength 2 out of 5 in all for extremities, contractures throughout. 09/12, Nursing assessment. Feeding assessment: Total assistance. 09/12, Nursing assessment. Activities of Daily living: Bedrest, HOB, 2 people max assist. Treatment: Absorbent under pad , check hourly, turn Q2 hours, Assist required for ADL Is there an additional diagnosis that is clinically appropriate for this patient? [ ] Functional Quadriplegia [ ] Other (please specify) [ ] Unable to determine (Template Last Revised: May 2020) Functional Quadriplegia MTDD
[2021-09-12 20:52] LABS: Glucose,Whole Blood 138 mg/dL (70-110)
[2021-09-13] MEDS: MORPHINE SULFATE 4 MG/ML SYRINGE IV PRN ×2 (00:43→21:55)
[2021-09-13] MEDS: HEPARIN SODIUM,PORCINE/PF 5,000 UNIT/0.5 ML SYRINGE SQ SCH ×4 (00:45→23:01)
--- NOTE | 2021-09-13 06:47 | P.PN ---
Subjective Progress Note Date: 09/12/21 Principal diagnosis: Bilateral lower extremity wound and cellulitis Patient is a 61-year-old female with multiple contractures bedbound status and did have multiple lower extremity ulcer and concern for secondary cellulitis. On today's evaluation that is 09/12/2021, the patient denies having fever or chills, sweats, or pain to bilateral lower simply the wound area no chest pain shortness of breath or cough no abdominal pain no diarrhea Objective - Vital Signs Vital signs: Vital Signs Temp 98.0 F 09/12/21 06:26 Pulse 96 09/12/21 06:26 Resp 16 09/12/21 06:26 BP 101/68 09/12/21 06:26 Pulse Ox 98 09/12/21 06:26 FiO2 Intake & Output 09/11/21 09/12/21 09/12/21 18:59 06:59 18:59 Intake Total 240 947 Output Total 600 Balance 240 -600 947 Weight 50 kg Intake: Oral 240 947 Output: Urine 600 Other: Voiding Method Diaper Incontinent # Voids 1 - Exam GENERAL DESCRIPTION: Middle-aged female lying in bed in no distress RESPIRATORY SYSTEM: Unlabored breathing , decreased breath sounds at bases HEART: S1 S2 regular rate and rhythm , ABDOMEN: Soft , no tenderness EXTREMITIES: Lower extremity wounds are currently dressed no drainage on the dressing - Labs CBC & Chem 7: 09/12/21 06:43 09/12/21 06:43 Labs: Abnormal Lab Results - Last 24 Hours (Table) 09/11/21 09/12/21 09/12/21 Range/Units 17:10 06:43 06:43 RBC 2.94 L (4.10-5.20) X 10*6/uL Hgb 8.7 L (12.0-15.0) g/dL Hct 26.5 L (37.2-46.3) % RDW 15.2 H (11.5-14.5) % MPV 9.2 L (9.5-12.2) fL Immature Gran # 0.11 H (0.00-0.04) X 10*3/uL Lymphocytes # 0.68 L (0.90-5.00) X 10*3/uL Sodium 132 L (135-145) mmol/L Potassium 3.3 L (3.5-5.5) mmol/L Carbon Dioxide 19.8 L (20.0-27.5) mmol/L Anion Gap 8.20 L (10.00-18.00) mmol/L Creatinine 0.5 L (0.6-1.5) mg/dL POC Glucose (mg/dL) 115 H (70-110) mg/dL Calcium 7.1 L (8.7-10.3) mg/dL Total Bilirubin <0.15 L (0.30-1.20) mg/dL AST 72 H (13-35) U/L Total Protein 4.5 L (6.2-8.2) g/dL Albumin 2.3 L (3.8-4.9) g/dL Albumin/Globulin Ratio 1.05 L (1.60-3.17) g/dL 09/12/21 Range/Units 11:18 RBC (4.10-5.20) X 10*6/uL Hgb (12.0-15.0) g/dL Hct (37.2-46.3) % RDW (11.5-14.5) % MPV (9.5-12.2) fL Immature Gran # (0.00-0.04) X 10*3/uL Lymphocytes # (0.90-5.00) X 10*3/uL Sodium (135-145) mmol/L Potassium (3.5-5.5) mmol/L Carbon Dioxide (20.0-27.5) mmol/L Anion Gap (10.00-18.00) mmol/L Creatinine (0.6-1.5) mg/dL POC Glucose (mg/dL) 124 H (70-110) mg/dL Calcium (8.7-10.3) mg/dL Total Bilirubin (0.30-1.20) mg/dL AST (13-35) U/L Total Protein (6.2-8.2) g/dL Albumin (3.8-4.9) g/dL Albumin/Globulin Ratio (1.60-3.17) g/dL Assessment and Plan (1) Cellulitis, leg Current Visit: Yes Status: Acute Code(s): L03.119 - CELLULITIS OF UNSPECIFIED PART OF LIMB SNOMED Code(s): 401045872 Plan: 1patient with bilateral lower extremity ulceration seems to be more of a pressure ulcer mostly in the stage II involving the left ankle calcaneus area as well as right ankle and bilateral lower extremity and concerning for secondary cellulitis likely from gram-positive skin gustavo less likely gram-negative infection. 2penicillin allergy that would limit the number of antibiotics safe to use. 3patient will continue with vancomycin and Rocephin for now empirically and monitor clinical course closely Time with Patient: Less than 30
[2021-09-13 06:48] LABS: Glucose,Whole Blood 92 mg/dL (70-110)
[2021-09-13] MEDS: SODIUM CHLORIDE 0.9% 1,000 ML IV SCH ×2 (06:52→16:20)
[2021-09-13] MEDS: INSULIN ASPART (NovoLOG) 100 UNIT/ML VIAL SQ SCH ×4 (06:52→21:49)
[2021-09-13] MEDS: PANTOPRAZOLE 40 MG TABLET PO SCH (08:13)
[2021-09-13] MEDS: HYDROPHILIC CREAM 180 GM TUBE TOPICAL SCH (08:13)
[2021-09-13] MEDS: POTASSIUM BICARBONATE/CIT AC 20 MEQ TABLET.EFF PO SCH (08:14)
[2021-09-13] MEDS ORDERED: VANCOMYCIN TROUGH DUE 1 EACH MISC MISCELLANE ONE (09:00)
[2021-09-13] MEDS: VANCOMYCIN 1,000 MG in SODIUM CHLORIDE 0.9% 250 ML IVPB SCH ×2 (10:09→23:01)
[2021-09-13 10:38] LABS: Basophils % (A) 1 %; Eosinophils # (A) 0.1 k/uL (0-0.7); Eosinophils % (A) 2 %; HCT 29.6 % (34.0-46.0); HGB 10.1 gm/dL (11.4-16.0); Lymphocytes # (A) 0.3 k/uL (1.0-4.8); Lymphocytes % (A) 5 %; MCH 31.8 pg (25.0-35.0); MCHC 34.1 g/dL (31.0-37.0); MCV 93.3 fL (80.0-100.0); Mean Platelet Volume 7.5; Monocytes # (A) 0.3 k/uL (0-1.0); Monocytes % (A) 5 %; Neutrophils # (A) 5.7 k/uL (1.3-7.7); Neutrophils % (A) 86 %; Platelet Count 236 k/uL (150-450); RBC 3.17 m/uL (3.80-5.40); RDW 14.3 % (11.5-15.5); WBC 6.7 k/uL (3.8-10.6)
[2021-09-13 11:12] LABS: Glucose,Whole Blood 162 mg/dL (70-110)
[2021-09-13 11:25] LABS: ALT 20 U/L (4-34); AST 45 U/L (14-36); African American GFR (CKD) >90 (>60 ml/min/1.73 sqM); Albumin/Globulin Ratio 0.8; Alkaline Phosphatase 86 U/L (38-126); Anion Gap 4 mmol/L; Blood Urea Nitrogen 6 mg/dL (7-17); Calcium 6.8 mg/dL (8.4-10.2); Carbon Dioxide 24 mmol/L (22-30); Chloride 100 mmol/L (98-107); Globulin 2.5 g/dL; Glucose 137 mg/dL (74-99); Magnesium 1.2 mg/dL (1.6-2.3); Non-African American GFR(CKD) >90 (>60 ml/min/1.73 sqM); Potassium 4.1 mmol/L (3.5-5.1); Sodium 128 mmol/L (137-145); Total Bilirubin <0.1 mg/dL (0.2-1.3); Total Protein 4.5 g/dL (6.3-8.2)
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
[2021-09-13] MEDS: MAGNESIUM SULFATE-D5W PMX 1 GM in DEXTROSE/WATER 1 100ML.BAG IVPB SCH ×4 (13:08→16:19)
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
[2021-09-13 16:55] LABS: Glucose,Whole Blood 164 mg/dL (70-110)
[2021-09-13 20:57] LABS: Glucose,Whole Blood 129 mg/dL (70-110)
--- NOTE | 2021-09-13 22:16 | P.PN ---
Subjective Progress Note Date: 09/13/21 Principal diagnosis: Bilateral lower extremity wound and cellulitis Patient is a 61-year-old female with multiple contractures bedbound status and did have multiple lower extremity ulcer and concern for secondary cellulitis. On today's evaluation that is 09/13/2021, the patient remains to be afebrile, the patient continued complaining of pain to bilateral lower extremities, patient denies having any chest pain or shortness of breath or cough no abdominal pain or diarrhea Objective - Vital Signs Vital signs: Vital Signs Temp 98.1 F 09/13/21 08:00 Pulse 103 H 09/13/21 08:00 Resp 16 09/13/21 08:00 BP 113/60 09/13/21 08:00 Pulse Ox 99 09/13/21 08:00 FiO2 Intake & Output 09/12/21 09/13/21 09/13/21 18:59 06:59 18:59 Intake Total 1776 360 Output Total 300 625 Balance 1476 -625 360 Intake: Oral 1776 360 Output: Urine 300 625 Other: Voiding Method Diaper Incontinent - Exam GENERAL DESCRIPTION: Middle-aged female lying in bed in no distress RESPIRATORY SYSTEM: Unlabored breathing , decreased breath sounds at bases HEART: S1 S2 regular rate and rhythm , ABDOMEN: Soft , no tenderness EXTREMITIES: Lower extremity wounds are currently dressed no drainage on the dressing - Labs CBC & Chem 7: 09/13/21 09:55 09/13/21 09:55 Labs: Abnormal Lab Results - Last 24 Hours (Table) 09/12/21 09/12/21 09/13/21 Range/Units 11:18 20:51 09:55 RBC 3.17 L (3.80-5.40) m/uL Hgb 10.1 L (11.4-16.0) gm/dL Hct 29.6 L (34.0-46.0) % Lymphocytes # 0.3 L (1.0-4.8) k/uL POC Glucose (mg/dL) 124 H 138 H (70-110) mg/dL 09/13/21 Range/Units 11:10 RBC (3.80-5.40) m/uL Hgb (11.4-16.0) gm/dL Hct (34.0-46.0) % Lymphocytes # (1.0-4.8) k/uL POC Glucose (mg/dL) 162 H (70-110) mg/dL Assessment and Plan (1) Cellulitis, leg Current Visit: Yes Status: Acute Code(s): L03.119 - CELLULITIS OF UNSPECIFIED PART OF LIMB SNOMED Code(s): 783723698 Plan: 1patient with bilateral lower extremity ulceration seems to be more of a pressure ulcer mostly in the stage II involving the left ankle calcaneus area as well as right ankle and bilateral lower extremity and concerning for secondary cellulitis likely from gram-positive skin gustavo less likely gram-negative infection. 2penicillin allergy that would limit the number of antibiotics safe to use. 3-patient did have evidence of multiple fractures and orthopedic surgery recommending transfer to the tertiary care 3patient currently being treated with vancomycin and Rocephin for lower extremity cellulitis which will be continued Time with Patient: Less than 30
[2021-09-14] MEDS ORDERED: diphenhydrAMINE 50 MG/ML 1 ML VIAL IVP STA (03:18)
[2021-09-14 07:04] LABS: Glucose,Whole Blood 97 mg/dL (70-110)
[2021-09-14] MEDS: INSULIN ASPART (NovoLOG) 100 UNIT/ML VIAL SQ SCH ×4 (07:27→20:41)
[2021-09-14 08:51] LABS: HCT 28.2 % (34.0-46.0); HGB 9.7 gm/dL (11.4-16.0); MCH 31.9 pg (25.0-35.0); MCHC 34.3 g/dL (31.0-37.0); MCV 92.9 fL (80.0-100.0); Mean Platelet Volume 7.2; Platelet Count 216 k/uL (150-450); RBC 3.04 m/uL (3.80-5.40); RDW 14.7 % (11.5-15.5); WBC 6.6 k/uL (3.8-10.6)
[2021-09-14 09:17] LABS: African American GFR (CKD) >90 (>60 ml/min/1.73 sqM); Anion Gap 2 mmol/L; Blood Urea Nitrogen 6 mg/dL (7-17); Carbon Dioxide 24 mmol/L (22-30); Chloride 99 mmol/L (98-107); Glucose 97 mg/dL (74-99); Non-African American GFR(CKD) >90 (>60 ml/min/1.73 sqM); Potassium 3.4 mmol/L (3.5-5.1); Sodium 125 mmol/L (137-145)
[2021-09-14 09:18] LABS: Calcium 6.7 mg/dL (8.4-10.2); Magnesium 1.7 mg/dL (1.6-2.3)
[2021-09-14] MEDS: HEPARIN SODIUM,PORCINE/PF 5,000 UNIT/0.5 ML SYRINGE SQ SCH ×3 (09:33→23:16)
[2021-09-14] MEDS: SODIUM CHLORIDE 0.9% 1,000 ML IV SCH (09:33)
[2021-09-14] MEDS: PANTOPRAZOLE 40 MG TABLET PO SCH (09:33)
[2021-09-14] MEDS: HYDROPHILIC CREAM 180 GM TUBE TOPICAL SCH (09:38)
[2021-09-14] MEDS: POTASSIUM BICARBONATE/CIT AC 20 MEQ TABLET.EFF PO SCH (09:38)
[2021-09-14] MEDS: VANCOMYCIN 1,000 MG in SODIUM CHLORIDE 0.9% 250 ML IVPB SCH ×2 (10:42→22:30)
[2021-09-14 11:15] LABS: Glucose,Whole Blood 129 mg/dL (70-110)
[2021-09-14] MEDS: POTASSIUM CHLORIDE ER 10 MEQ TAB.ER.PRT PO SCH ×2 (11:41→11:42)
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
[2021-09-14] MEDS: ACETAMINOPHEN TAB 325 MG TAB PO PRN (14:53)
[2021-09-14] MEDS: MORPHINE SULFATE 4 MG/ML SYRINGE IV PRN (14:54)
[2021-09-14 16:35] LABS: Glucose,Whole Blood 115 mg/dL (70-110)
[2021-09-14 20:48] LABS: Glucose,Whole Blood 152 mg/dL (70-110)
[2021-09-15] MEDS: MORPHINE SULFATE 4 MG/ML SYRINGE IV PRN ×6 (01:49→21:34)
[2021-09-15] MEDS: ACETAMINOPHEN TAB 325 MG TAB PO PRN (01:49)
[2021-09-15 07:13] LABS: Glucose,Whole Blood 95 mg/dL (70-110)
[2021-09-15] MEDS: INSULIN ASPART (NovoLOG) 100 UNIT/ML VIAL SQ SCH ×4 (08:13→21:40)
[2021-09-15] MEDS: POTASSIUM BICARBONATE/CIT AC 20 MEQ TABLET.EFF PO SCH (08:19)
[2021-09-15] MEDS: HEPARIN SODIUM,PORCINE/PF 5,000 UNIT/0.5 ML SYRINGE SQ SCH ×2 (08:19→16:48)
[2021-09-15] MEDS: PANTOPRAZOLE 40 MG TABLET PO SCH (08:20)
[2021-09-15] MEDS: HYDROPHILIC CREAM 180 GM TUBE TOPICAL SCH (08:20)
[2021-09-15 09:22] LABS: Basophils # (A) 0.01 X 10*3/uL (0.00-0.10); Basophils % (A) 0.1 %; Eosinophils # (A) 0.64 X 10*3/uL (0.04-0.35); Eosinophils % (A) 8.1 %; HCT 26.1 % (37.2-46.3); HGB 8.5 g/dL (12.0-15.0); Lymphocytes # (A) 0.81 X 10*3/uL (0.90-5.00); Lymphocytes % (A) 10.3 %; MCH 29.5 pg (27.0-32.0); MCHC 32.6 g/dL (32.0-37.0); MCV 90.6 fL (80.0-97.0); Mean Platelet Volume 10.1 fL (9.5-12.2); Monocytes # (A) 0.69 X 10*3/uL (0.20-1.00); Monocytes % (A) 8.8 %; NRBC Per 100 WBC 0 /100 WBCS (0.0-0.0); Neutrophils # (A) 5.65 X 10*3/uL (1.80-7.70); Neutrophils % (A) 71.7 %; Platelet Count 212 X 10*3/uL (140-440); RBC 2.88 X 10*6/uL (4.10-5.20); WBC 7.88 X 10*3/uL (4.50-10.00)
[2021-09-15 09:34] LABS: African American GFR (CKD) 120.2 (60.0-200.0); Anion Gap 6.8 mmol/L (10.00-18.00); BUN/Creat Ratio 14.2 Ratio (12.00-20.00); Blood Urea Nitrogen 7.1 mg/dL (9.0-27.0); Calcium 6.9 mg/dL (8.7-10.3); Carbon Dioxide 24.2 mmol/L (20.0-27.5); Magnesium 1.7 mg/dL (1.5-2.4); Non-African American GFR(CKD) 103.7 (60.0-200.0); Potassium 4.1 mmol/L (3.5-5.5)
[2021-09-15] MEDS: VANCOMYCIN 1,000 MG in SODIUM CHLORIDE 0.9% 250 ML IVPB SCH ×2 (11:03→22:04)
[2021-09-15 11:26] LABS: Glucose,Whole Blood 131 mg/dL (70-110)
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
[2021-09-15 16:19] LABS: Glucose,Whole Blood 115 mg/dL (70-110)
[2021-09-15 21:25] LABS: Glucose,Whole Blood 103 mg/dL (70-110)
[2021-09-15] MEDS ORDERED: diphenhydrAMINE 50 MG/ML 1 ML VIAL IVP STA (22:31)
[2021-09-16] MEDS: HEPARIN SODIUM,PORCINE/PF 5,000 UNIT/0.5 ML SYRINGE SQ SCH ×3 (01:17→17:29)
[2021-09-16] MEDS: ACETAMINOPHEN TAB 325 MG TAB PO PRN (03:55)
[2021-09-16] MEDS: diphenhydrAMINE 50 MG/ML 1 ML VIAL IVP PRN ×3 (04:46→17:15)
[2021-09-16] MEDS ORDERED: SODIUM CHLORIDE 0.9% 500 ML 500 ML IV ONE (06:24)
[2021-09-16 07:08] LABS: Glucose,Whole Blood 87 mg/dL (70-110)
[2021-09-16] MEDS: INSULIN ASPART (NovoLOG) 100 UNIT/ML VIAL SQ SCH ×4 (07:38→21:28)
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
[2021-09-16] MEDS: PANTOPRAZOLE 40 MG TABLET PO SCH (08:22)
[2021-09-16] MEDS: POTASSIUM BICARBONATE/CIT AC 20 MEQ TABLET.EFF PO SCH (08:23)
[2021-09-16] MEDS: HYDROPHILIC CREAM 180 GM TUBE TOPICAL SCH (08:23)
[2021-09-16] MEDS ORDERED: VANCOMYCIN TROUGH DUE 1 EACH MISC MISCELLANE ONE (09:00)
[2021-09-16] MEDS ORDERED: CEFEPIME 1 GM in SODIUM CHLORIDE 0.9% 50 ML IVPB SCH (09:00)
[2021-09-16 09:50] LABS: Basophils % (A) 0 %; Eosinophils # (A) 0.7 k/uL (0-0.7); Eosinophils % (A) 9 %; HCT 26.8 % (34.0-46.0); HGB 9.2 gm/dL (11.4-16.0); Lymphocytes # (A) 0.6 k/uL (1.0-4.8); Lymphocytes % (A) 8 %; MCH 31.6 pg (25.0-35.0); MCHC 34.4 g/dL (31.0-37.0); MCV 91.9 fL (80.0-100.0); Mean Platelet Volume 7.9; Monocytes # (A) 0.5 k/uL (0-1.0); Monocytes % (A) 6 %; Neutrophils # (A) 5.7 k/uL (1.3-7.7); Neutrophils % (A) 76 %; Platelet Count 291 k/uL (150-450); RBC 2.92 m/uL (3.80-5.40); RDW 14.2 % (11.5-15.5); WBC 7.6 k/uL (3.8-10.6)
[2021-09-16 09:58] LABS: African American GFR (CKD) >90 (>60 ml/min/1.73 sqM); Anion Gap 1 mmol/L; Blood Urea Nitrogen 11 mg/dL (7-17); Calcium 6.7 mg/dL (8.4-10.2); Carbon Dioxide 27 mmol/L (22-30); Chloride 97 mmol/L (98-107); Glucose 94 mg/dL (74-99); Non-African American GFR(CKD) >90 (>60 ml/min/1.73 sqM); Potassium 4.4 mmol/L (3.5-5.1); Sodium 125 mmol/L (137-145)
[2021-09-16 11:31] LABS: Glucose,Whole Blood 85 mg/dL (70-110)
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
[2021-09-16] MEDS ORDERED: VANCOMYCIN 1,000 MG in SODIUM CHLORIDE 0.9% 250 ML IVPB SCH (14:00)
[2021-09-16 14:20] VITALS: RESP 18
[2021-09-16 16:16] LABS: Glucose,Whole Blood 129 mg/dL (70-110)
[2021-09-16] MEDS: MORPHINE SULFATE 4 MG/ML SYRINGE IV PRN (17:15)
[2021-09-16 18:19] VITALS: BP 111/63; PULSE 90; TEMP 98.1
[2021-09-16 20:32] LABS: Glucose,Whole Blood 121 mg/dL (70-110)
== END 2021-09-16 22:40 | disposition short-term general hospital (02) | DRG 871 ==
LOC: EC 22:06 → 4SSUR 09-11 00:10
PROVIDERS: ADMIT Internal Medicine; ATTEND Internal Medicine
DX: A41.9 Sepsis, unspecified organism (principal); E43 Unspecified severe protein-calorie malnutrition; R53.2 Functional quadriplegia; Z68.1 Body mass index [BMI] 19.9 or less, adult; L03.116 Cellulitis of left lower limb; L03.115 Cellulitis of right lower limb; E22.2 Syndrome of inappropriate secretion of antidiuretic hormone; T76.91XA Unspecified adult maltreatment, suspected, initial encounter; L97.922 Non-pressure chronic ulcer of unspecified part of left lower leg with fat layer exposed; E86.0 Dehydration; E11.621 Type 2 diabetes mellitus with foot ulcer; L89.512 Pressure ulcer of right ankle, stage 2; I10 Essential (primary) hypertension; J45.909 Unspecified asthma, uncomplicated; E87.6 Hypokalemia; E11.9 Type 2 diabetes mellitus without complications; F17.200 Nicotine dependence, unspecified, uncomplicated; M79.7 Fibromyalgia; R62.7 Adult failure to thrive; S82.302A Unspecified fracture of lower end of left tibia, initial encounter for closed fracture; S82.832A Other fracture of upper and lower end of left fibula, initial encounter for closed fracture; W19.XXXA Unspecified fall, initial encounter; S92.352A Displaced fracture of fifth metatarsal bone, left foot, initial encounter for closed fracture; L89.152 Pressure ulcer of sacral region, stage 2; L89.211 Pressure ulcer of right hip, stage 1; L89.522 Pressure ulcer of left ankle, stage 2; L89.622 Pressure ulcer of left heel, stage 2; L97.512 Non-pressure chronic ulcer of other part of right foot with fat layer exposed; Z74.01 Bed confinement status; Z88.0 Allergy status to penicillin; Z90.710 Acquired absence of both cervix and uterus
CPT/HCPCS: 36415; 70450; 72125; 72170; 80048; 80053; 80202; 81001; 83605; 83735; 83930; 83935; 84100; 84132; 84300; 84484; 85025; 85027; 85610; 85730; 87040; 94760; 99284